=== PATIENT | male | born 1960 | race Caucasian/White ===

== ENCOUNTER 2024-08-13 07:36 | Outpatient (REF) | payer MEDICARE, SELFPAY ==
[2024-08-13 07:47] LABS: MANUAL DIFF FLAG NO
[2024-08-13 07:52] LABS: Basophils Percent Auto 0.2 % (0-2); Eosinophils Percent Auto 0.2 % (0-4); Hematocrit 42.7 % (42.0-52.0); Hemoglobin 14.3 g/dl (14.0-18.0); Imm Gran Abs Auto 0.04 X10*3/uL (0.00-0.03); Imm Gran Pct Auto 0.4 % (0.0-0.4); Lymphocytes Absolute Auto 0.8 X10*3/uL (1.2-4.9); Mean Corpuscular HGB Conc 33.5 g/dl (31.0-36.0); Mean Corpuscular Volume 89.7 fL (80.0-98.0); Mean Platelet Volume 11.4 fL (9.4-12.4); Monocytes Absolute Auto 0.2 X10*3/uL (0.1-1.2); Monocytes Percent Auto 1.8 % (2-11); Neutrophils Absolute Auto 9.3 x10*3/uL (2.0-8.3); Neutrophils Percent Auto 89.4 % (45-73); Platelet Count 244 X10*3/uL (160-400); Red Blood Count 4.76 X10*6/uL (4.60-5.80); Red Cell Distribution Width 14.6 % (11.0-16.0); White Blood Count 10.5 X10*3/uL (4.8-10.8)
[2024-08-13 07:58] LABS: Estimated Average Glucose 123 mg/dL; Hemoglobin A1C 154.0441 umol/L; Hemoglobin A1c % 5.9 % (<6.0); Total Hemoglobin (HGBA1C) 3736.9823 umol/L
[2024-08-13 08:13] LABS: Alanine Aminotransferase 45 U/L (0-40); Albumin Level 3.5 g/dL (3.5-5.0); Alkaline Phosphatase 142 U/L (39-117); Anion Gap 13 (12-20); Aspartate Amino Transferase 29 U/L (5-37); Bilirubin Total 0.4 mg/dL (0.0-1.0); Blood Urea Nitrogen 17 mg/dL (9-16); Calcium 9.4 mg/dL (8.4-10.2); Carbon Dioxide 26 mmol/L (22-29); Chloride 105 mmol/L (96-108); Cholesterol 115 mg/dL (<200); Estimated Glomerular Filt Rate > 60; Glucose Fasting 223 mg/dL (60-99); HDL Cholesterol 32 mg/dL (>40); LDL Cholesterol Calculated 65 mg/dL (<100); Potassium 4.5 mmol/L (3.3-5.1); Sodium 139 mmol/L (135-145); Total Protein 6.4 g/dL (6.5-8.0); Triglycerides 93 mg/dL (<150)
[2024-08-13 08:25] LABS: Prostate Specific Antigen 4.16 ng/mL (<0.05-4.0)
[2024-08-13 08:28] LABS: Thyroid Stimulating Hormone 0.57 uIU/mL (0.32-4.0); Vitamin D 25-OH Total 36.2 ng/mL (>30)
[2024-08-16 07:29] LABS: TS Negative Control Passed; TS Panel A 0; TS Panel B 0; TS Positive Control Passed; TSpotTB Negative (Negative)
== END 2024-08-13 07:37 | disposition home or self-care (01) ==
LOC: HO.HSH3W 07:36
PROVIDERS: Visit Provider Nurse Practitioner
DX: I10 Essential (primary) hypertension (principal); Z13.1 Encounter for screening for diabetes mellitus; Z12.5 Encounter for screening for malignant neoplasm of prostate
CPT/HCPCS: 36415; 80053; 80061; 82306; 83036; 84153; 84443; 85025; 86481

== ENCOUNTER 2024-08-28 07:56 | Outpatient (REF) | payer MEDICARE, SELFPAY ==
[2024-08-28 07:59] LABS: MANUAL DIFF FLAG NO
[2024-08-28 08:31] LABS: Basophils Percent Auto 0.3 % (0-2); Eosinophils Absolute Auto 0.1 X10*3/uL (0.0-0.4); Eosinophils Percent Auto 1.3 % (0-4); Hematocrit 39.9 % (42.0-52.0); Hemoglobin 13.6 g/dl (14.0-18.0); Imm Gran Abs Auto 0.05 X10*3/uL (0.00-0.03); Imm Gran Pct Auto 0.5 % (0.0-0.4); Lymphocytes Absolute Auto 2.1 X10*3/uL (1.2-4.9); Lymphocytes Percent Auto 21.9 % (20-40); Mean Corpuscular HGB Conc 34.1 g/dl (31.0-36.0); Mean Corpuscular Hemoglobin 30.1 pg (27.0-33.0); Mean Corpuscular Volume 88.3 fL (80.0-98.0); Mean Platelet Volume 10.9 fL (9.4-12.4); Monocytes Absolute Auto 0.5 X10*3/uL (0.1-1.2); Monocytes Percent Auto 5.7 % (2-11); Neutrophils Absolute Auto 6.6 x10*3/uL (2.0-8.3); Neutrophils Percent Auto 70.3 % (45-73); Platelet Count 227 X10*3/uL (160-400); Red Blood Count 4.52 X10*6/uL (4.60-5.80); Red Cell Distribution Width 14.7 % (11.0-16.0); White Blood Count 9.3 X10*3/uL (4.8-10.8)
[2024-08-28 08:38] LABS: Alanine Aminotransferase 45 U/L (0-40); Albumin Level 3.1 g/dL (3.5-5.0); Alkaline Phosphatase 153 U/L (39-117); Anion Gap 12 (12-20); Aspartate Amino Transferase 28 U/L (5-37); Bilirubin Total 0.4 mg/dL (0.0-1.0); Blood Urea Nitrogen 16 mg/dL (9-16); Calcium 9.1 mg/dL (8.4-10.2); Carbon Dioxide 30 mmol/L (22-29); Chloride 102 mmol/L (96-108); Estimated Glomerular Filt Rate > 60; Glucose Random 154 mg/dL (60-115); Potassium 3.8 mmol/L (3.3-5.1); Sodium 140 mmol/L (135-145); Total Protein 5.8 g/dL (6.5-8.0)
== END 2024-08-28 07:57 | disposition home or self-care (01) ==
LOC: HO.HSH3W 07:56
PROVIDERS: Visit Provider Nurse Practitioner Acute Care
DX: R19.7 Diarrhea, unspecified (principal)
CPT/HCPCS: 36415; 80053; 85025

== ENCOUNTER 2024-09-30 12:50 | Outpatient (AMB) | payer MEDICARE, SELFPAY ==
--- NOTE | 2024-09-30 12:50 | MHC.OFFVIS ---
Vital Signs 09/30/24 13:13 BP 117/68 Blood Pressure Location Lt brachial Position Sitting Pulse 73 Intake Visit Reasons: G Tube issues Intake Note: Patient scheduled today's visit to establish care in case there is G-tube issues. Records will be scanned. G-tube placed in July 2023. Rn Medical Inpatient Services Required: No Accompanied by: RN Veronica from [place] Allergies No Known Allergies Allergy (Verified 09/30/24 12:59) Assessment & Plan Assessment & Plan (1) Hypoxia: Code(s): R09.02 - Hypoxemia (2) C. difficile diarrhea: Code(s): A04.72 - Enterocolitis due to Clostridium difficile, not specified as recurrent Coding Diagnoses Hypoxia R09.02 C. difficile diarrhea A04.72
[2024-09-30 13:13] VITALS: BP 117/68; PULSE 73
--- NOTE | 2024-09-30 13:29 | MHC.OFFVIS ---
Vital Signs 09/30/24 13:13 BP 117/68 Blood Pressure Location Lt brachial Position Sitting Pulse 73 Intake Visit Reasons: G Tube issues Allergies No Known Allergies Allergy (Verified 09/30/24 12:59) Medication List - Last Reconciled 09/30/24 by Aly Farias MD acetaminophen 650 mg PO Q6H PRN apixaban 5 mg PO BID atenolol 50 mg PO DAILY atorvastatin 40 mg PO BEDTIME bisacodyl 10 mg SC DAILY PRN calcium polycarbophil (Fiber (calcium polycarbophil)) 1,250 mg PO DAILY dextromethorphan-guaifenesin 10-100 mg/5 mL 10 mL PO Q4-6H PRN lidocaine 4% (Lidocaine Pain Relief) 1 patch topical DAILY PRN magnesium hydroxide 5 mL PO BEDTIME melatonin 3 mg PO BEDTIME PRN nystatin 1 appl topical BID omeprazole magnesium 20 mg PO BID paroxetine HCl 10 mg PO DAILY Saccharomyces boulardii 250 mg PO BID sodium phosphates 19-7 gram/118 mL 118 mL SC BEDTIME PRN vancomycin (Firvanq) 125 mg PO QID HPI HPI G Tube issues: Details: 64-year-old male with a history of a right thalamic hemorrhagic stroke referred to me for care of his PEG tube. He apparently had this placed about a year ago in [facility]. He has had this changed 2-3 times already because of clogging [facility] and [facility] wanted him transitioned to care in [facility] with regards to his PEG tube He is essentially wheelchair-bound. He does communicate verbally although with difficulty He also has a history of PE and is on anticoagulation. He has hypertension and hyperlipidemia and has had recurrent C diff. he is on a tapering dose of vancomycin. Currently there were no problems with the feeding tube. [facility] Medical History Constipation Chronic GERD Hypertension Hx pulmonary embolism Hypoxia C. difficile diarrhea Surgical History (Updated 09/30/24 @ 13:37 by Aly Farias MD) PEG (percutaneous endoscopic gastrostomy) status Review of Systems Const Denies chills and Denies fever(s) Card Denies chest pain at rest Resp Denies cough GI Denies abdominal pain Denies difficulty urinating Neuro Details: Wheelchair-bound due to a previous CVA Physical Exam Vital Signs: Last Vital Signs Pulse 73 09/30/24 13:13 BP 117/68 09/30/24 13:13 Const Other: On wheelchair, appears comfortable does have some verbal output General: comfortable and no acute distress Resp Effort & Inspection: normal respiratory effort Cardio Rate: regular rate GI Other: Peg tube in place, appears to be functioning well Palpation (GI): Soft to palpation Assessment & Plan Assessment & Plan (1) PEG (percutaneous endoscopic gastrostomy) status: Code(s): Z93.1 - Gastrostomy status Category: Surgical Plan: He has a PEG tube in place after a CVA last year. This was done in [facility] but he is being transitioned to care he had [facility] for PEG tube Currently, this is functioning well. However, he has had this changed twice in the past because of blockage. He can come back to the office if this needs to be changed. He is also on a prolonged course of vancomycin because of recurrent C diff. I told this nurse that we may want to consider deficit in the future he continues problems with recurrent C diff infection. Coding Level of Care Code New Pt Level 3 (50060) Diagnoses PEG (percutaneous endoscopic gastrostomy) status Z93.1
== END 2024-09-30 13:32 | disposition home or self-care (01) ==
PROVIDERS: PCP Nurse Practitioner; Visit Provider Surgery
DX: Z93.1 Gastrostomy status (principal)
CPT/HCPCS: 99203

== ENCOUNTER → 2024-09-30 12:50 | Outpatient (BNVA) | payer MEDICARE, SELFPAY | PROVIDERS: PCP Nurse Practitioner; Visit Provider Surgery | DX: Z93.1 Gastrostomy status (principal) | CPT/HCPCS: 99202 ==

== ENCOUNTER 2024-10-26 17:51 | Outpatient (REF) | payer MEDICARE, SELFPAY ==
--- OUTSIDE RECORDS SUMMARY | 2024-08-14 09:00 | XMS_ITS ---
Author Organization [facility] Address 7 [facility] 2 [place] [address] Care Team Providers Care Credit Reporting Clerk Name Role Phone Cosmo BARRIOS, Maciej Primary Care Provider Agustina Araujo Unavailable [phone] REASON FOR VISIT half-way follow up wound care Encounters Encounter Location Date Provider Diagnosis [facility] [address] [facility] [place] [address] 08/14/2024 Agustina Mayo Diaper dermatitis L22 and [...] plan of care. I Agustina Mayo MSN, [facility]- examined, evaluated and treated the patient. Dr. hCintan Day was available for any question or concerns that I may have had. Next Appt Details Follow Up: 1 week, Reason: Progress Notes * Gilmar ALCANTARADOB:[birth year] (64 yo M)Acc No.[id number]:08/14/2024 Residential Follow-Up Visit Patient: Gilmar SCHULTZ Provider: Leah Mayo NP :1960 A ge:64 Y S ex:Male Date:08/14/2024 Address:[address] [place] [address], [place]la [id number] Pcp:Maciej Wilburn MD Subjective: * Chief Complaints: * 1 . [facility] follow up wound care. * HPI: W [...] Information: * Visit Code: * Procedure Codes: 31821 NURSING FAC CARE SUBSEQ. * Electronic signature of Lacy Mayo NP on 10/26/2024 at 05:56 PM EDT Sign off status: Pending * Provider: Leah Mayo NP Date: 08/14/2024 Generated for Anastacia pires/Hortensia/Lor on: 0 10/26/2024 05:56 PM EDT History and Physical Notes * [...]
== END 2024-10-26 17:52 | disposition home or self-care (01) ==
LOC: HO.HSH3W 17:51
PROVIDERS: Visit Provider Nurse Practitioner
DX: A04.72 Enterocolitis due to Clostridium difficile, not specified as recurrent (principal)
CPT/HCPCS: 36415

== ENCOUNTER 2024-10-27 20:40 | Outpatient (REF) | payer MEDICARE, SELFPAY ==
--- OUTSIDE RECORDS SUMMARY | 2024-08-14 09:00 | XMS_ITS ---
Author Organization [facility] Address 7 [facility] 2 [place] [address] [address] Team Providers Care Ct Technician Name Role Phone Cosmo BARRIOS, Maciej Primary Care Provider Agustina Araujo Unavailable [phone] REASON FOR VISIT group home follow up wound care Encounters Encounter Location Date Provider Diagnosis [facility] [address] [place] [address] 08/14/2024 Agustina Mayo Diaper dermatitis L22 and [...] nursing agree w plan of care. I Agustian Mayo MSN, AGPCNP-BC examined, evaluated and treated [...] plan of care. I Agustina Mayo MSN, [facility]- examined, evaluated and treated the patient. Dr. Chintan Day was available for any question or concerns that I may have had. Next Appt Details Follow Up: 1 week, Reason: Progress Notes * Gilmar ALCANTARADOB:[birth year] (64 yo M)Acc No.[id number]:08/14/2024 Group Home Follow-Up Visit Patient: Gilmar SCHULTZ Provider: Leah Mayo NP :1960 A ge:64 Y S ex:Male Date:08/14/2024 Address:[address] [place] [address], [place]la [id number] Pcp:Maciej Wilburn MD Subjective: * Chief Complaints: * 1 . residential follow up wound care. * HPI: W [...] Information: * Visit Code: * Procedure Codes: 60245 NURSING FAC CARE SUBSEQ. * Electronic signature of Lacy Mayo NP on 10/27/2024 at 08:45 PM EDT Sign off status: Pending * Provider: Leah Mayo NP Date: 0 08/14/2024 Generated for Anastacia pires/Hortensia/Lor on: 0 10/27/2024 08:45 PM EDT History and Physical Notes * [...]
[2024-10-27 21:48] LABS: CDiff Gene PCR POSITIVE (Negative)
[2024-10-27 22:42] LABS: CDiff Toxin Positive (Negative)
[2024-10-27 22:43] LABS: CDIFF Internal ctrl Dots and bkg OK (V)
== END 2024-10-27 20:41 | disposition home or self-care (01) ==
LOC: HO.HSH3W 20:40
PROVIDERS: Visit Provider Nurse Practitioner
DX: A04.71 Enterocolitis due to Clostridium difficile, recurrent (principal)
CPT/HCPCS: 87324; 87493

== ENCOUNTER → 2024-10-29 16:19 | Outpatient (BNV) | payer MEDICARE, SELFPAY | PROVIDERS: Emergency Provider Emergency Medicine Emergency Medical Services; PCP Internal Medicine; Visit Provider Radiology Diagnostic Radiology | DX: R19.7 Diarrhea, unspecified (principal); R07.9 Chest pain, unspecified | CPT/HCPCS: 71045; 74176 ==

== ENCOUNTER → 2024-10-29 16:19 | Outpatient (BNV) | payer OTHER, SELFPAY | PROVIDERS: Admitting Provider Physician Assistant Medical; Emergency Provider Emergency Medicine Emergency Medical Services; PCP Internal Medicine; Visit Provider Internal Medicine Cardiovascular Disease | DX: R94.31 Abnormal electrocardiogram [ECG] [EKG] (principal); R06.02 Shortness of breath | CPT/HCPCS: 93010 ==

== ENCOUNTER 2024-10-29 17:00 | Inpatient (IN) | payer OTHER, SELFPAY ==
--- OUTSIDE RECORDS SUMMARY | 2024-08-14 09:00 | XMS_ITS ---
Author Organization [facility] Address 7 [facility] 2 [place] [address] Care Team Providers Care Reflexologist Name Role Phone Cosmo BARRIOS, Maciej Primary Care Provider Agustina Araujo Unavailable [phone] REASON FOR VISIT senior care follow up wound care Encounters Encounter Location Date Provider Diagnosis [facility] [address] [facility] [place] [address] 08/14/2024 Agustina Mayo Diaper dermatitis L22 and Tinea corporis B35.4 Assessments Encounter Date Diagnosis (ICD Code) Assessment Notes Treatment Notes Treatment Clinical Notes Section Notes 08/14/2024 Diaper dermatitis (ICD-10 - L22) 08/14/2024 Tinea corporis (ICD-10 - B35.4) On exam, alert & cooperative with care. We rolled and examined his buttocks which remains intact but his bilateral posterior thighs, buttocks, and scrotum have moist erythema and appear fungal in nature, improved and lightening in color from 1 week ago (previously bright red and now more pink in color). There were no findings to indicate any acute underlying infectious process. Betamethasone clotrimazole was applied. I recommended nursing continue to apply betamethasone clotrimazole BID to his bilateral grain and scrotum. Turn, reposition & change Q2 hours & PRN. Encourage appropriate dietary supplementation to aid in wound healing. Falls protocol in place. I will follow up in about one week to monitor his progress and nursing will reach out in the interim w any questions or concerns. Patient and nursing agree w plan of care. I Agustina Mayo MSN, AGPCNP-BC examined, evaluated and treated the patient. Dr. Chintan Day was available for any question or concerns that I may have had. Plan Of Treatment Treatment Notes Assessment Notes Tinea corporis On exam, alert & cooperative with care. We rolled and examined his buttocks which remains intact but his bilateral posterior thighs, buttocks, and scrotum have moist erythema and appear fungal in nature, improved and lightening in color from 1 week ago (previously bright red and now more pink in color). There were no findings to indicate any acute underlying infectious process. Betamethasone clotrimazole was applied. I recommended nursing continue to apply betamethasone clotrimazole BID to his bilateral grain and scrotum. Turn, reposition & change Q2 hours & PRN. Encourage appropriate dietary supplementation to aid in wound healing. Falls protocol in place. I will follow up in about one week to monitor his progress and nursing will reach out in the interim w any questions or concerns. Patient and nursing agree w plan of care. I Agustina Mayo MSN, [facility]- examined, evaluated and treated the patient. Dr. Chintan Day was available for any question or concerns that I may have had. Next Appt Details Follow Up: 1 week, Reason: Progress Notes * Gilmar ALCANTARADOB:[birth year] (64 yo M)Acc No.[id number]:08/14/2024 Half-Way Follow-Up Visit Patient: Gilmar SCHULTZ Provider: Leah Mayo NP :1960 A ge:64 Y S ex:Male Date:08/14/2024 Address:[address] [place] [address], [place]la [id number] Pcp:Maciej Wilburn MD Subjective: * Chief Complaints: * 1 . detention follow up wound care. * HPI: W ound Care: 1 week follow up on Gilmar's rash to his groin and scrotum. Nursing started using zinc or triad paste without improvement, so we changed the treatment 1 week ago to betamethasone clotrimazole cream BID. * ROS: G eneral / Constitutional: Patient denies F ever, chills, fatigue. E NT: Patient denies H earing loss. R espiratory: Patient denies C ough. C ardiovascular: Patient denies C hest pain. G astrointestinal: Patient complains of F ecal incontinence. M usculoskeletal: Patient complains of W eakness. S kin: Patient complains of R moreno. N eurologic: Patient complains of F orgetful. P sychiatric: Patient denies A nxiety. * Medical History: Objective: * Vitals: * Examination: G eneral Examination: General appearance: a ppears neat and clean, in NAD. Head: n ormocephalic, atraumatic. Ears: n o apparent hearing loss. Skin: M oist erythema to bilateral groin and scrotum improved and lightening compared to 1 week ago. Lungs: r eladio even and unlabored. Musculoskeletal: p t uses a WC. Neurologic: F orgetful. Psych: a ppropriate affect. Assessment: * Assessment: 1. T inea corporis - B35.4 (Primary) 2 . D iaper dermatitis - L22 ? Plan: * Treatment: * Procedure Codes: 9 9308 NURSING FAC CARE SUBSEQ * Follow Up: 1 week * Billing Information: * Visit Code: * Procedure Codes: 28674 NURSING FAC CARE SUBSEQ. * Electronic signature of Lacy Mayo NP on 10/29/2024 at 05:38 PM EDT Sign off status: Pending * Provider: Leah Mayo NP Date: 08/14/2024 Generated for Anastacia pires/Hortensia/Lor on: 0 10/29/2024 05:38 PM EDT History and Physical Notes * Examination Category Sub-Category Detail Notes Category Not es General Examination General appearance: appears neat a nd clean, in NAD Head: normocephalic, atrau matic Ears: no apparent hearing loss Lungs: resp even and unlabo red Neurologic: Forgetful Skin: Moist erythema to bi lateral groin and scrotum improved and lightening compared to 1 week ago Musculoskeletal: pt uses a WC Psych: appropriate affect
[2024-10-29] VITALS (15 sets, daily range): BP systolic 75–110; BP diastolic 30–63; PULSE 83–102; RESP 18–31; TEMP 37.4–38.5; O2SAT 92–97; BMI 25.3
--- NOTE | ~2024-10-29 | CT_ITS ---
CLINICAL HISTORY: diarrhea Exam: CT Abdomen and Pelvis Without IV Contrast Comparison: None Findings: Above the diaphragm there is mild bilateral posterior costophrenic sulcus atelectasis. The liver density is homogeneous No biliary abnormalities. The gallbladder is normal in size. The spleen is normal in size No pancreatic ductal dilatation No hydronephrosis. No urinary tract obstruction. Two small nonobstructing calculi are present in the minor calices of the left kidney, and a 1 mm nonobstructing calcification is present in a minor calyx of the right kidney. Normal bowel caliber. A rectal tube is in satisfactory position. No secondary signs of acute appendicitis. The appendix is not well visualized. No free fluid/free air The abdominal aorta contains significant calcified atherosclerotic plaque, the caliber is normal The urinary bladder wall is thickened measuring 13 mm in thickness due to contracted state decompressed by a Riley catheter. No suspicious skeletal lesions Impression: The bowel pattern is nonobstructed. A rectal tube is in satisfactory position. The colon caliber is normal and contains liquid stool, but no signs of inflammatory colon wall thickening at this time. Thickened urinary bladder wall consider cystitis, correlate with UA This document has been electronically signed by: Michael Tejeda MD on 10/29/2024 19:16:58
--- NOTE | ~2024-10-29 | CT_ITS ---
CLINICAL HISTORY: AMS --- Additional Notes or Special Instructions: hx of stroke CT Head WO Contrast COMPARISON: None provided FINDINGS: No acute intracranial hemorrhage. No evidence of acute infarction. Diffuse cortical volume loss. Nonspecific white matter hypodensities, most commonly associated with chronic microangiopathic changes. 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 Small chronic appearing encephalomalacia in the right ford radiata. No mass-effect or midline shift. Disproportionate prominence of the lateral and 3rd ventricles relative to the sulci, without visible acute etiology. Visualized orbits are normal. Cysts or polyps in the maxillary sinuses. Trace fluid in the left mastoid air cells. Clear right mastoid air cells. No acute fracture. Unremarkable soft tissues. IMPRESSION: No acute intracranial findings. Possible normal pressure hydrocephalus in the proper clinical setting. Nonemergent/incidental findings in the report. This document has been electronically signed by: Jose Waite MD on 10/30/2024 04:04:04
--- NOTE | ~2024-10-29 | XR_ITS ---
CLINICAL HISTORY: cp 1 view chest x-ray. Comparison: None Findings: No consolidation. Heart size normal. No acute fracture. Impression: Normal heart size with mild pulmonary vascular congestion. No pulmonary edema. No pneumothorax. This document has been electronically signed by: Michael Tejeda MD on 10/29/2024 17:59:16
--- NOTE | ~2024-10-29 | CT_ITS ---
CLINICAL HISTORY: chest CT Chest WO Contrast COMPARISON: CR - XR CHEST 1V - 10/29/24 17:14 EDT FINDINGS: Detail limited by artifacts. Bilateral posterior atelectasis or infiltrates. Bronchial wall thickening in the bilateral lower lungs. Occlusion of the left lower lobe lobar bronchus and bilateral lower lobe segmental and subsegmental bronchi. No pleural effusion. No pneumothorax. Mild cardiomegaly. No pericardial effusion. No pathologically enlarged lymph nodes. No thoracic aortic aneurysm. Atherosclerosis. No acute fracture. Degenerative changes in the spine and shoulders. Mild nonspecific hypertrophy of the bilateral adrenal glands. IMPRESSION: Probable bronchitis. Occluded left lower lobe lobar and bilateral lobe segmental and subsegmental bronchi could be due to mucus impactions. Follow-up recommended to exclude underlying left lower lobe endobronchial neoplasm. Bilateral posterior atelectasis or infiltrates. Nonemergent/incidental findings above. This document has been electronically signed by: Jose Waite MD on 10/30/2024 04:09:44
--- NOTE | 2024-10-29 16:19 | ECG_ITS ---
Test Reason : CHEST PAIN Blood Pressure : */* mmHG Vent. Rate : 87 BPM Atrial Rate : 87 BPM P-R Int : 116 ms QRS Dur : 72 ms QT Int : 358 ms P-R-T Axes : 51 -7 44 degrees QTcB Int : 430 ms Normal sinus rhythm Nonspecific ST abnormality Abnormal ECG No previous ECGs available Referred By: Amber De L aRosa Electronically Signed By: Fabien Angel
--- NOTE | 2024-10-29 16:23 | ED.GENADULT ---
HPI - General Adult General Chief complaint: General Medical Stated complaint: ?sepsis, fever,hypotention Time Seen by Provider: 10/29/24 16:10 History of Present Illness HPI narrative: History of left-sided weakness patient baseline aphasic. Tested positive for C diff. Is now running a fever. Is on vancomycin. Patient is on Eliquis. Presented today with having fever generalized malaise weakness. Baseline nonverbal patient is a do not intubate but attempts resuscitation. [facility] Unable to give detailed. History of hypertension Related Data Home Medications ?Medication ?Instructions ?Recorded ?Confirmed Saccharomyces boulardii 250 mg 250 mg PO BID 09/30/24 09/30/24 capsule acetaminophen 650 mg/20.3 mL oral 650 mg PO Q6H PRN 09/30/24 09/30/24 suspension apixaban 5 mg tablet 5 mg PO BID 09/30/24 09/30/24 atenolol 50 mg tablet 50 mg PO DAILY 09/30/24 09/30/24 atorvastatin 40 mg tablet 40 mg PO BEDTIME 09/30/24 09/30/24 bisacodyl 10 mg rectal suppository 10 mg NM DAILY PRN 09/30/24 09/30/24 calcium polycarbophil 625 mg 1,250 mg PO DAILY 09/30/24 09/30/24 tablet (Fiber (calcium polycarbophil)) dextromethorphan-guaifenesin 10 10 ml PO Q4-6H PRN 09/30/24 09/30/24 mg-100 mg/5 mL oral liquid lidocaine 4 % topical patch 1 patch topical DAILY PRN 09/30/24 09/30/24 (Lidocaine Pain Relief) magnesium hydroxide 400 mg/5 mL 5 ml PO BEDTIME 09/30/24 09/30/24 oral suspension melatonin 3 mg capsule 3 mg PO BEDTIME PRN 09/30/24 09/30/24 nystatin 100,000 unit/gram topical 1 appl topical BID 09/30/24 09/30/24 cream omeprazole magnesium 10 mg oral 20 mg PO BID 09/30/24 09/30/24 suspension,delayed release paroxetine HCl 10 mg tablet 10 mg PO DAILY 09/30/24 09/30/24 sodium phosphates 19 gram-7 118 ml NM BEDTIME PRN 09/30/24 09/30/24 gram/118 mL enema vancomycin 25 mg/mL oral solution 125 mg PO QID 09/30/24 09/30/24 (Firvanq) Allergies Allergy/AdvReac Type Severity Reaction Status Date / Time No Known Allergies Allergy Verified 10/29/24 16:21 Review of Systems Review of Systems: Unable to obtain review of systems secondary patient's condition [facility] Past Medical History Source: old records reviewed Medical History Constipation Chronic GERD Hypertension Hx pulmonary embolism Hypoxia C. difficile diarrhea Surgical History PEG (percutaneous endoscopic gastrostomy) status Social History Social History (Updated 10/29/24 @ 22:54 by PEDRITO Castle) Household Members: Other Housing: [facility] Housing Other:: [facility] Unable to assess alcohol history related to: Unknown Smoked in Last 30 Days: No Advance Directives: No Advance Directives Information Provided: No Physical Exam ED Vital Signs: Vital Signs - 24 hr 10/29/24 16:17 10/29/24 16:17 10/29/24 17:54 Temperature 101.3 F H 100.2 F Pulse Rate 99 87 Respiratory Rate 18 20 Blood Pressure 94/43 L 81/39 L Pulse Oximetry 94 94 Oxygen Delivery Method Room Air Room Air 10/29/24 18:24 10/29/24 18:58 10/29/24 18:59 Temperature Pulse Rate 83 89 87 Respiratory Rate Blood Pressure 84/44 L 78/34 L 80/35 L Pulse Oximetry Oxygen Delivery Method 10/29/24 19:08 10/29/24 19:15 10/29/24 19:31 Temperature 99.5 F 99.3 F 99.3 F Pulse Rate 88 91 92 Respiratory Rate 24 H 25 H 21 H Blood Pressure 75/30 L 97/51 L 93/48 L Pulse Oximetry 92 92 95 Oxygen Delivery Method Room Air Room Air Room Air 10/29/24 19:59 10/29/24 20:58 10/29/24 21:37 Temperature 99.3 F 99.7 F 100.2 F Pulse Rate 93 98 102 H Respiratory Rate 19 26 H 31 H Blood Pressure 96/51 L 98/41 L 110/53 L Pulse Oximetry 95 96 97 Oxygen Delivery Method Room Air Room Air Room Air 10/29/24 22:55 Temperature 101.1 F H Pulse Rate 95 Respiratory Rate 28 H Blood Pressure 93/49 L Pulse Oximetry 93 Oxygen Delivery Method Room Air BMI result Body Mass Index 25.3 Appearance: Lethargic not making eye contact moaning Eyes: Pupils equal, round and reactive to light. ENT: Pharynx normal. Neck: Normal inspection. Neck supple. No lymph nodes noted. No crepitus CVS: Tachycardic Respiratory: Positive breath sounds bilaterally Abdomen: Soft and nontender. Skin: Skin warm and dry. Normal skin color. Normal skin turgor. Extremities: 2+ lower extremity edema Neuro: Oriented X 0 contracted Medications Administered Generic Name Dose Route Start Last Admin Trade Name Freq PRN Reason Stop Dose Admin Sodium Chloride 1,000 mls @ 100 mls/hr 10/29/24 22:30 10/29/24 22:41 Ns IVCONT 100 mls/hr On Hold: 10/29/24 23:05 .Q10H CATRACHO Administration Albumin Human 100 mls @ 133.333 mls/hr 10/29/24 22:30 10/29/24 22:37 Kedbumin 25 % IV 10/30/24 00:14 133.33 mls/hr Q1H CATRACHO Administration Discontinued Medications Generic Name Dose Route Start Last Admin Trade Name Freq PRN Reason Stop Dose Admin Acetaminophen 650 mg 10/29/24 16:22 10/29/24 16:59 Acetaminophen Supp 650 Mg Supp.Rect NM 10/29/24 16:23 Not Given ONCE ONE Cefepime HCl 1 gm/ Sodium 50 mls @ 100 mls/hr 10/29/24 16:20 10/29/24 17:08 Chloride IV 10/29/24 16:49 Infused ONCE ONE Infusion Sodium Chloride 2,202 mls @ 2,202 mls/hr 10/29/24 16:28 10/29/24 18:59 Ns 30 ml/kg infuse over 1 hr (2202 ml) 10/29/24 17:27 Infused IV Infusion .Q1H STA Acetaminophen 1,000 mg in 100 mls @ 400 mls/hr 10/29/24 16:35 10/29/24 17:29 Ofirmev IV 10/29/24 16:49 Infused ONCE ONE Infusion Albumin Human 50 mls @ 100 mls/hr 10/29/24 18:30 07/10/25 19:25 Kedbumin 25 % IV 10/29/24 19:29 Infused Q30M CATRACHO Infusion Sodium Chloride 1,000 mls @ 999 mls/hr 10/29/24 19:30 10/29/24 20:42 Ns IV 10/29/24 20:30 Infused .Q1H1M CATRACHO Infusion Sodium Chloride 1,000 mls @ 999 mls/hr 10/29/24 20:15 10/29/24 22:11 Ns IV 10/29/24 21:15 Infused .Q1H1M CATRACHO Infusion Acetaminophen 1,000 mg in 100 mls @ 400 mls/hr 10/29/24 22:26 10/29/24 22:57 Ofirmev IV 10/29/24 22:40 Infused ONCE ONE Infusion Ibuprofen 600 mg 10/29/24 22:26 10/29/24 22:36 Ibuprofen Oral Susp 200 Mg/10 Ml Oral.Susp PO 10/29/24 22:27 600 mg ONCE ONE Administration Vancomycin HCl 250 mg 10/29/24 18:45 10/29/24 20:00 Vancomycin Hcl Oral Solution 125 Mg/5 Ml Soln.Recon PO 10/29/24 18:46 Not Given ONCE ONE Vancomycin HCl 250 mg 10/29/24 20:30 10/29/24 20:00 Vancomycin Hcl Oral Solution 125 Mg/5 Ml Soln.Recon PO 10/29/24 20:31 250 mg ONCE ONE Administration Medical Decision Making Medical Decision Making MDM Narrative: Positive fever positive diarrhea positive history of C diff. will do a septic workup. 30 cc/kilos fluid of fluid was given. Patient's started on sepsis protocol. Lactate was 3. After IV fluids repeat focal exam for sepsis was done. Symptomatically improving. Vancomycin was given orally for the C diff. cefepime was given for empiric coverage. My interpretation patient's chest x-ray showed no focal infiltrate. Patient is given IV fluids. Monitor in the emergency department. Repeat focal exam for sepsis is done at 19:00. Patient is seems to be improving somewhat. After the IV fluids patient's blood pressure dropped to 70s over 40s. I did give patient some albumin. Blood pressure is now recovering to 95/50. Discussed with hospitalist team. Patient to be admitted. I reviewed radiology's reading of the CT scan abdomen pelvis there is no signs of obstruction. Differential Diagnosis Differential Diagnoses: The differential diagnosis associated with the presentation includes C diff colitis, dehydration, fever Admission/Observation Consideration of admission/observation: Escalation of care including admission/observation considered Consult Healthcare Provider Management of the patient was discussed with: Hospitalist Lab Data MDM Lab Attestation statement: I reviewed the patient's lab results. 10/29/24 17:02 10/29/24 19:26 Labs: Lab Results 10/29/24 10/29/24 10/29/24 Range/Units 16:24 17:02 19:26 WBC 30.5 H* (4.8-10.8) X10*3/uL RBC 4.65 (4.60-5.80) X10*6/uL Hgb 13.6 L (14.0-18.0) g/dl Hct 40.0 L (42.0-52.0) % MCV 86.0 (80.0-98.0) fL MCH 29.2 (27.0-33.0) pg MCHC 34.0 (31.0-36.0) g/dl RDW 14.4 (11.0-16.0) % Plt Count 345 D (160-400) X10*3/uL MPV 9.4 (9.4-12.4) fL Immature Gran % (Auto) 0.9 H (0.0-0.4) % Neut % (Auto) 89.9 H (45-73) % Lymph % (Auto) 1.7 L (20-40) % [facility] % (Auto) 7.1 (2-11) % Eos % (Auto) 0.1 (0-4) % Baso % (Auto) 0.3 (0-2) % Lymph # (Auto) 0.5 L (1.2-4.9) X10*3/uL [facility] # (Auto) 2.2 H (0.1-1.2) X10*3/uL Eos # (Auto) 0.0 (0.0-0.4) X10*3/uL Baso # (Auto) 0.1 (0.0-0.2) X10*3/uL Abs Immat Gran (auto) 0.28 H (0.00-0.03) X10*3/uL Absolute Neuts (auto) 27.4 H (2.0-8.3) x10*3/uL Absolute Nucleated RBC 0.000 (0.0-0.012) X10*3/uL Nucleated RBC % (auto) 0.0 (0.0-0.2) /100WBC Smear Tech's Comments VERIFIED Sodium 140 (135-145) mmol/L Potassium 4.3 (3.3-5.1) mmol/L Chloride 110 H (96-108) mmol/L Carbon Dioxide 22 (22-29) mmol/L Anion Gap 12 (12-20) BUN 12 (9-16) mg/dL Creatinine 0.61 (0.5-1.4) mg/dL Estim Creat Clear Calc 111.3 Estimated GFR > 60 Random Glucose 127 H (60-115) mg/dL Lactic Acid 3.1 H* (0.5-2.0) mmol/L Lactic Acid F/U @ 2Hr (0.5-2.0) mmol/L Lactic Acid F/U @ 4Hr (0.5-2.0) mmol/L Calcium 7.8 L D (8.4-10.2) mg/dL Total Bilirubin 0.6 (0.0-1.0) mg/dL Direct Bilirubin 0.3 (0.0-0.5) mg/dL AST 36 (5-37) U/L ALT 49 H (0-40) U/L Alkaline Phosphatase 113 (39-117) U/L Total Protein 4.8 L (6.5-8.0) g/dL Albumin 2.9 L (3.5-5.0) g/dL Urine Color Yellow Urine Appearance Cloudy Urine pH 5.5 (5.0-9.0) Ur Specific [place] 1.015 (1.005-1.025) Urine Protein Trace (Neg-Trace) mg/dL Urine Glucose (UA) Negative (Negative) mg/dL Urine Ketones Negative (Negative) mg/dL Urine Blood Small (1+) H (Negative) Urine Nitrite Positive H (Negative) Ur Leukocyte Esterase Large (3+) H (Negative) Urine RBC 3-5 H (0-2) /HPF Urine WBC >50 H (0-5) /HPF Urine WBC Clumps Present Ur Squamous Epith Cells 0-2 (0-2) /HPF Calcium Oxalate Crystal Present Urine Bacteria 4+ (None Seen) Hyaline Casts 0-2 (0-2) /LPF Influenza Type A (PCR) (Negative) Influenza Type B (PCR) (Negative) RSV RNA Qual (PCR) (Negative) SARS-CoV-2 RNA (RT-PCR) (Negative) 10/29/24 10/29/24 Range/Units 19:27 22:32 WBC (4.8-10.8) X10*3/uL RBC (4.60-5.80) X10*6/uL Hgb (14.0-18.0) g/dl Hct (42.0-52.0) % MCV (80.0-98.0) fL MCH (27.0-33.0) pg MCHC (31.0-36.0) g/dl RDW (11.0-16.0) % Plt Count (160-400) X10*3/uL MPV (9.4-12.4) fL Immature Gran % (Auto) (0.0-0.4) % Neut % (Auto) (45-73) % Lymph % (Auto) (20-40) % [facility] % (Auto) (2-11) % Eos % (Auto) (0-4) % Baso % (Auto) (0-2) % Lymph # (Auto) (1.2-4.9) X10*3/uL [facility] # (Auto) (0.1-1.2) X10*3/uL Eos # (Auto) (0.0-0.4) X10*3/uL Baso # (Auto) (0.0-0.2) X10*3/uL Abs Immat Gran (auto) (0.00-0.03) X10*3/uL Absolute Neuts (auto) (2.0-8.3) x10*3/uL Absolute Nucleated RBC (0.0-0.012) X10*3/uL Nucleated RBC % (auto) (0.0-0.2) /100WBC Smear Tech's Comments Sodium (135-145) mmol/L Potassium (3.3-5.1) mmol/L Chloride (96-108) mmol/L Carbon Dioxide (22-29) mmol/L Anion Gap (12-20) BUN (9-16) mg/dL Creatinine (0.5-1.4) mg/dL Estim Creat Clear Calc Estimated GFR Random Glucose (60-115) mg/dL Lactic Acid (0.5-2.0) mmol/L Lactic Acid F/U @ 2Hr 3.7 H* (0.5-2.0) mmol/L Lactic Acid F/U @ 4Hr 3.7 H* (0.5-2.0) mmol/L Calcium (8.4-10.2) mg/dL Total Bilirubin (0.0-1.0) mg/dL Direct Bilirubin (0.0-0.5) mg/dL AST (5-37) U/L ALT (0-40) U/L Alkaline Phosphatase (39-117) U/L Total Protein (6.5-8.0) g/dL Albumin (3.5-5.0) g/dL Urine Color Urine Appearance Urine pH (5.0-9.0) Ur Specific [place] (1.005-1.025) Urine Protein (Neg-Trace) mg/dL Urine Glucose (UA) (Negative) mg/dL Urine Ketones (Negative) mg/dL Urine Blood (Negative) Urine Nitrite (Negative) Ur Leukocyte Esterase (Negative) Urine RBC (0-2) /HPF Urine WBC (0-5) /HPF Urine WBC Clumps Ur Squamous Epith Cells (0-2) /HPF Calcium Oxalate Crystal Urine Bacteria (None Seen) Hyaline Casts (0-2) /LPF Influenza Type A (PCR) NEGATIVE (Negative) Influenza Type B (PCR) NEGATIVE (Negative) RSV RNA Qual (PCR) NEGATIVE (Negative) SARS-CoV-2 RNA (RT-PCR) NEGATIVE (Negative) Independent Interpretation I performed an independent interpretation of an: EKG (Sinus heart rate is 90 NM QRS QTC within normal limits there is no acute ST segment elevation noted.), Plain X-Ray (Negative for pneumonia pneumothorax) and CT Scan (No gross obstruction noted) Radiology Impression Discussion of test interpretation with radiology: I discussed test interpretation with the radiologist External Record Review External record reviewed: Inpatient record and Outpatient record Chronic Conditions CVA, was on antibiotics prior Social Determinants Patient?s care significantly limited by Social Determinants of Health including: Problems related to primary support group Critical Care Time Critical Care Time Critical Care Time: Yes Total Critical Care Time: 90 Attestation: I have personally provided 90 minutes of critical care time exclusive of time spent on separately billable procedures. ?Time includes review of lab data, radiology results, discussion with consultants, and monitoring for potential decompensation. ?Interventions were performed as documented above Discharge Plan Discharge Clinical Impression: C. difficile colitis Sepsis Qualifiers: Sepsis type: sepsis due to unspecified organism Sepsis acute organ dysfunction status: unspecified Qualified Code(s): A41.9 - Sepsis, unspecified organism Patient Disposition: Admitted As Inpatient Print Language: Setswana
[2024-10-29] MEDS: SODIUM CHLORIDE 2202 ML IV (16:37)
--- NOTE | 2024-10-29 17:10 | PC.NURSE ---
[facility], patient noted to have fever at care home and recent positive test for cdiff. upon arrival to ED patient unresponsive to painful stimuli, warm to the touch. additional line placed #18 in the right FA, cultures and labs obtained. #16 fr rodríguez placed as provider order, aprox 300cc urine obtained. patient noted to have large copious amounts of diarrhea, rectal tube placed per provider order. patient tolerated both interventions well, patient now opening eyes and tracking staff in room. per EMS patient is bed bound and non verbal, patient has g tube in place. patient sacrum noted to be red at this time. patient at bedside, patient medicated per JUN.
[2024-10-29 17:14] LABS: Hematocrit 40.0 % (42.0-52.0); Hemoglobin 13.6 g/dl (14.0-18.0); Imm Gran Abs Auto 0.28 X10*3/uL (0.00-0.03); Imm Gran Pct Auto 0.9 % (0.0-0.4); Lymphocytes Absolute Auto 0.5 X10*3/uL (1.2-4.9); MANUAL DIFF FLAG SCAN; Mean Corpuscular HGB Conc 34.0 g/dl (31.0-36.0); Mean Corpuscular Hemoglobin 29.2 pg (27.0-33.0); Mean Corpuscular Volume 86.0 fL (80.0-98.0); NRBC Abs Auto 0.000 X10*3/uL (0.0-0.012); NRBC Pct Auto 0.0 /100WBC (0.0-0.2); Platelet Count 345 X10*3/uL (160-400); Red Blood Count 4.65 X10*6/uL (4.60-5.80); SCAN SMEAR FLAG 1
[2024-10-29 17:21] LABS: White Blood Count 30.5 X10*3/uL (4.8-10.8)
--- OUTSIDE RECORDS SUMMARY | 2024-10-29 17:38 | XMS_ITS | Clinical Summary ---
Author Organization [facility] Address [address] [place] [address] Care Team Providers Care Tool Dresser Name Role Phone Unavailable Primary Care Provider Unavailabl e Allergies No known active allergies Medications acetaminophen (Tylenol) 325 MG tablet Take 650 mg by mouth. 4 Active amoxicillin-clavul anate (Augmentin) 250-62.5 MG/5ML suspension 5 Active Eliquis 5 MG tablet 5 Active atenolol (Tenormin) 25 MG tablet 50 mg. 4 Active atorvastatin (Lipitor) 40 MG tablet 40 mg. 4 Active bisacodyl (Dulcolax) 10 MG suppository Insert 10 mg into the rectum. 4 Active cephalexin (Keflex) 250 MG capsule 4 Active clotrimazole-betam ethasone (Lotrisone) cream Apply topically. 4 Active doxycycline (Vibramycin) 100 MG capsule 5 Active doxycycline (Vibra-Tabs) 100 MG tablet 5 Active erythromycin (Romycin) 5 MG/GM ophthalmic ointment 5 Active lansoprazole (Prevacid SoluTab) 30 MG disintegrating tablet 30 mg. 4 Active magnesium hydroxide (Milk of Magnesia) 400 MG/5ML suspension 2.4 g. 4 Active melatonin 3 MG tablet 3 mg. 4 Active omeprazole (PriLOSEC) [address] capsule 5 Active PARoxetine (Paxil) 10 MG tablet 10 mg. 4 Active sulfamethoxazole-t rimethoprim (Bactrim DS) 800-160 MG tablet 4 Active valsartan (Diovan) 40 MG tablet 5 Active vancomycin (Firvanq) 25 MG/ML oral solution 125 mg. 5 Active vancomycin (Firvanq) 50 MG/ML oral solution 5 Active guaiFENesin-dextro methorphan (Robitussin DM) 100-10 MG/5ML syrup Take by mouth. Active lidocaine 4 % dressing Apply topically if needed for mild pain. 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 History of CVA with residual deficit 09/30/2024 HLD (hyperlipidemia) 09/30/2024 HTN (hypertension) 09/30/2024 Encounters Date Type Department Care Team Description 10/14/2024 3:15 PM EDT Office Visit [facility] [address] [place] [address] [phone] Gretel Messer Dental calculus (Primary Dx); Dental plaque; Subgingival dental calculus; Supragingival dental calculus; Tongue fissure; Tongue coating 09/30/2024 9:15 AM EDT Office Visit [facility] [address] [place] [phone] Eyad Campuzano DMD from Last 3 Months Social History Tobacco Use Types Packs/Day Years Used Date Smoking Tobacco: Never Smokeless Tobacco: Never Tobacco Cessation:Counseling Given: Not Answered Sex and Gender Information Value Date Recorded Sex Assigned at Male 08/17/2024 3:15 PM EDT Legal Sex Male 3:14 PM EDT Gender Identity Male 08/17/2024 3:15 PM EDT Sexual Orientation Straight 08/17/2024 3: 15 PM EDT Plan of Treatment Health Maintenance Due Date Last Done Comments CT Colonography 1958 Colonoscopy 1958 Colorectal Cancer Screening 1958 Depression Screening 1958 FIT DNA/Cologuard 1958 FIT 1958 FOBT 1958 Lipid Panel 1958 SDOH Screening 1958 Sigmoidoscopy 1958 Alcohol/Substance Use Screening 1970 Hepatitis C Screening 1976 DTaP/Tdap/Td Vaccines (1 - Tdap) 1977 Pneumococcal Vaccine: 50+ Years (1 of 1 - PCV) 2008 Zoster Vaccines (1 of 2) 2008 RSV Patients and Patients Aged 60 years or older (1 - Risk 60-74 years 1-dose series) 2018 COVID-19 Vaccine (3 - 2023-2 5 season) 2023 07/21/2020, 06/30/2020 Influenza Vaccine (#1) 2024 Dental Oral Exam 04/02/2025 09/30/2024 Dental Prophylaxis 04/16/2025 10/14/2024 Dental X-Ray: Bitewings 10/01/2025 09/30/2024 Tobacco Screening 10/14/2025 10/14/2024 Dental X-Ray: Full Mouth 10/02/2027 09/30/2024 HIB Vaccines Aged Out No longer eligi ble based on patient's age to complete this topic HPV Vaccines Aged Out No longer eligi ble based on patient's age to complete this topic Hepatitis A Vaccines Aged Out No long er eligible based on patient's age to complete this topic Hepatitis B Vaccines Aged Out No long er eligible based on patient's age to complete this topic IPV Vaccines Aged Out No longer eligi ble based on patient's age to complete this topic Meningococcal B Vaccine Aged Out No l onger eligible based on patient's age to complete this topic Meningococcal Vaccine Aged Out No angelique maximus eligible based on patient's age to complete this topic RSV under 20 months Aged Out No longe r eligible based on patient's age to complete this topic Rotavirus Vaccines Aged Out No longer eligible based on patient's age to complete this topic Procedures Procedure Name Priority Date/Time Associated Diagnosis Comments PROPHYLAXIS - ADULT Routine 10/14/2024 3 :15 PM EDT Dental calculus Dental plaque Subgingival dental calculus Supragingival dental calculus Tongue coating FULL MOUTH DEBRIDEMENT TO ENABLE A COMPREHENSIVE ORAL EVALUATION AND DIAGNOSIS ON A SUBSEQUENT VISIT Routine 10/14/2024 3:15 PM EDT Dental calculus Dental plaque Subgingival dental calculus Supragingival dental calculus TOPICAL APPLICATION OF FLUORIDE VARNISH Routine 10/14/2024 3:15 PM EDT TOPICAL APPLICATION OF FLUORIDE VARNISH Routine 09/30/2024 9:15 AM EDT INTRAORAL - COMPLETE SERIES OF RADIOGRAPHIC IMAGES Routine 09/30/2024 9:15 AM EDT BEHAVIOR MANAGEMENT Routine 09/30/2024 9 :15 AM EDT COMPREHENSIVE ORAL EVALUATION - NEW OR ESTABLISHED PATIENT Routine 09/30/2024 9:15 AM EDT 30 MO COMPOSITE FILLING Routine 10/01/19 12:00 AM EDT 31 O AMALGAM FILLING Routine 09/30/2024 12:00 AM EDT 30 B AMALGAM FILLING Routine 09/30/2024 12:00 AM EDT 29 DO AMALGAM FILLING Routine 09/30/2024 12:00 AM EDT 19 DOBL AMALGAM FILLING Routine 10/01/19 12:00 AM EDT 18 MOB AMALGAM FILLING Routine 12:00 AM EDT 15 O AMALGAM FILLING Routine 09/30/2024 12:00 AM EDT 14 DOL AMALGAM FILLING Routine 12:00 AM EDT 13 PFM CROWN Routine 09/30/2024 12:00 AM EDT 5 DO AMALGAM FILLING Routine 09/30/2024 12:00 AM EDT 4 PFM CROWN Routine 09/30/2024 12:00 AM EDT 3 MOL AMALGAM FILLING Routine 09/30/2024 12:00 AM EDT 2 O AMALGAM FILLING Routine 09/30/2024 1 2:00 AM EDT from Last 3 Months
[2024-10-29] MEDS: Albumin Human 25 % 50 ML 100 ML IV ×2 (18:28→19:01)
[2024-10-29 18:37] LABS: Reflex Lactate? Lactic Acid Added
--- NOTE | 2024-10-29 19:14 | PC.NURSE ---
Pt hypotensive, aware, new orders in place.
[2024-10-29 19:44] LABS: Appearance Urine Cloudy; Glucose Urine UA Negative (Negative); PH 5.5 (5.0-9.0); Specific Gravity - Urine 1.015 (1.005-1.025); UMIC TRIGGER UACC YES
[2024-10-29 19:52] LABS: Alanine Aminotransferase 49 U/L (0-40); Albumin Level 2.9 g/dL (3.5-5.0); Alkaline Phosphatase 113 U/L (39-117); Anion Gap 12 (12-20); Aspartate Amino Transferase 36 U/L (5-37); Blood Urea Nitrogen 12 mg/dL (9-16); Calcium 7.8 mg/dL (8.4-10.2); Carbon Dioxide 22 mmol/L (22-29); Chloride 110 mmol/L (96-108); Creatinine Clr Calc Pharmacy 111.3; Estimated Glomerular Filt Rate > 60; Potassium 4.3 mmol/L (3.3-5.1); Sodium 140 mmol/L (135-145); Total Protein 4.8 g/dL (6.5-8.0)
[2024-10-29 19:53] LABS: UACC Culture Trigger YES
[2024-10-29 19:54] LABS: ~Lactic Acid-LAB USE ONLY 3.7 mmol/L (0.5-2.0)
[2024-10-29] MEDS: vancomycin HCL Oral Solution 125 MG/5 ML SOLN.RECON 250 MG PO (20:00)
[2024-10-29 20:17] LABS: Resp Syncy Virus RNA Qual PCR NEGATIVE (Negative); SARS COV2 PCR INHOUSE NEGATIVE (Negative)
[2024-10-29 21:35] LABS: Reflex Lactate? 2 Y
--- NOTE | 2024-10-29 22:35 | PM.IMHP ---
History of Present Illness Date of Service: 10/29/24 Attending physician on admission: Adina Hernandez Chief Complaint: febrile THIS IS A CONSULT NOTE Pt is a 64 yo male unable to provide HPI or medical/surgical hx as pt is aphasic. 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 Pt was transferred to ED via ambulance from [facility] with fever. Pt had been diagnosed with CDIFF this past Saturday. This typewriter aligner did speak to nursing at [facility] and although patient was diagnosed with C diff on 10/27/2024, patient did not start treatment while there because the medication was not available at the [facility]. Apparently patient was to start fidaxomicin. Patient currently is nonverbal and not responding to verbal stimuli.Unable to reach pt's spouse to confirm baseline mental status and advanced directives. Nursing at the [facility] indicate that patient usually is interactive, we will open eyes and interact via yes or no answers. This most likely has a metabolic encephalopathy secondary to sepsis. The ED provider was able to speak to spouse and per her instruciton, pt should be a DNR/ DNR with previous directives listed as resuscitation allowed but DNI. Orders updated on admission. In the emergency room, Pt was started on Cefepime and Vanco via PEG tube in the ED. Pt received fluid resuscitation per sepsis protocol 30mls/Kg but pt still had issues maintaining blood pressure. Pt then received albumin and BP improved. WBCs 30.5, Lactate 3.1 to 3.7, repeat pending. UA postive for UTI. Urine and Blood cultures were drawn. CXR negative for consolidation, opacity but mild pulmonary edema noted. All viral studies are negative. Fever was noted to be 100.6, rising slightly. Ofirmev and Ibuprofen via peg ordered. Pt now has rectal tube which is properly placed via CT and rodríguez, also placed due to urinary retention of 300 ccs. Review of Systems Review of Systems: Yes Unobtainable due to mental condition and Unobtainable due to mental status [facility] Medical History Constipation Chronic GERD Hypertension Hx pulmonary embolism Hypoxia C. difficile diarrhea Cognitive capacity: nonverbal, lethargic Functional capacity: bed bound Pertinent family history: unable to provide Surgical History PEG (percutaneous endoscopic gastrostomy) status Social History (Updated 10/29/24 @ 22:54 by PEDRITO Castle) Household Members: Other Housing: [facility] Housing Other:: [facility] Unable to assess alcohol history related to: Unknown Ebola Risk: Travel/Contact With Anyone From Affected Area/s: No Has Patient Experienced Ebola Symptoms: No Meds Allergies Allergy/AdvReac Type Severity Reaction Status Date / Time No Known Allergies Allergy Verified 10/29/24 16:21 Active Medications: Current Medications Acetaminophen (Acetaminophen 325 Mg Tablet) 650 mg G-TUBE Q6H PRN PRN Reason: Pain, Mild 1-3,fever,headache Albuterol/Ipratropium (Albuterol/Iprat 2.5/0.5mg 3 Ml Ampul.Neb) 3 ml INHALE Q4H PRN PRN Reason: Shortness of Breath/Wheezing Ceftriaxone Sodium (Ceftriaxone Sodium 2 Gm Vial) 2 gm IVPUSH Q24H [facility] Sodium Chloride (Ns) 1,000 mls @ 100 mls/hr IVCONT .Q10H [facility] Acetaminophen (Ofirmev) 1,000 mg in 100 mls @ 400 mls/hr IV ONCE ONE Stop: 10/29/24 22:40 Albumin Human (Kedbumin 25 %) 100 mls @ 133.333 mls/hr IV Q1H [facility] Stop: 10/30/24 00:14 Magnesium Hydroxide (Milk Of Magnesia 30 Ml Oral.Susp) 30 ml G-TUBE DAILY PRN PRN Reason: Constipation Melatonin (Melatonin 3 Mg Tablet) 6 mg PO BEDTIME PRN PRN Reason: Insomnia Ondansetron HCl (Ondansetron Hcl 4 Mg/2 Ml Vial) 4 mg IVPUSH Q8H PRN PRN Reason: Nausea and Vomiting Sodium Chloride (0.9 % Sodium Chloride Flush 3 Ml Syringe) 3 ml IVFLUSH QSHIFT [facility] Vancomycin HCl (Vancomycin Hcl 125 Mg Capsule) 250 mg PO Q6H [facility] Home Medications ?Medication ?Instructions ?Recorded ?Confirmed ?Last Taken ?Type Saccharomyces boulardii 250 mg 250 mg PO BID 09/30/24 09/30/24 Unknown History capsule acetaminophen 650 mg/20.3 mL oral 650 mg PO Q6H PRN 09/30/24 09/30/24 Unknown History suspension apixaban 5 mg tablet 5 mg PO BID 09/30/24 09/30/24 Unknown History atenolol 50 mg tablet 50 mg PO DAILY 09/30/24 09/30/24 Unknown History atorvastatin 40 mg tablet 40 mg PO BEDTIME 09/30/24 09/30/24 Unknown History bisacodyl 10 mg rectal suppository 10 mg MI DAILY PRN 09/30/24 09/30/24 Unknown History calcium polycarbophil 625 mg 1,250 mg PO DAILY 09/30/24 09/30/24 Unknown History tablet (Fiber (calcium polycarbophil)) dextromethorphan-guaifenesin 10 10 ml PO Q4-6H PRN 09/30/24 09/30/24 Unknown History mg-100 mg/5 mL oral liquid lidocaine 4 % topical patch 1 patch topical DAILY PRN 09/30/24 09/30/24 Unknown History (Lidocaine Pain Relief) magnesium hydroxide 400 mg/5 mL 5 ml PO BEDTIME 09/30/24 09/30/24 Unknown History oral suspension melatonin 3 mg capsule 3 mg PO BEDTIME PRN 09/30/24 09/30/24 Unknown History nystatin 100,000 unit/gram topical 1 appl topical BID 09/30/24 09/30/24 Unknown History cream omeprazole magnesium 10 mg oral 20 mg PO BID 09/30/24 09/30/24 Unknown History suspension,delayed release paroxetine HCl 10 mg tablet 10 mg PO DAILY 09/30/24 09/30/24 Unknown History sodium phosphates 19 gram-7 118 ml MI BEDTIME PRN 09/30/24 09/30/24 Unknown History gram/118 mL enema vancomycin 25 mg/mL oral solution 125 mg PO QID 09/30/24 09/30/24 Unknown History (Firvanq) Physical Exam Vital Signs and Narrative: Vital Signs: Last Vital Signs Temp 100.2 F 10/29/24 21:37 Pulse 102 H 10/29/24 21:37 Resp 31 H 10/29/24 21:37 BP 110/53 L 10/29/24 21:37 Pulse Ox 97 10/29/24 21:37 O2 Del Method Room Air 10/29/24 21:37 BMI result Body Mass Index 25.3 nonverbal, somnolent, unable to provide HPI, PMH, PSH Neuro:unable to assess EYES: PERRLA, sclera nonicteric ENT: no conjunctivitis noted, oral mucosa moist Cardiac: S1 S2 RRR, no murmur, no JVD, no edema in Lower ext Pulmonary: lungs diminshed B Abdominal: BS diminshed B, no guarding or tenderness noted on exam, rectal tube in place MSK: unable to assess : rodríguez draining yellow urine with sediment Extremities: no edema in lower extremities, PT and DP pulses palpable +2 Psych:unable to assess Skin: excoriations noted sacrum and buttcks near gluteal fold Results Labs 10/29/24 17:02 10/29/24 19:26 Labs: Laboratory Results - last 24 hr 10/29/24 10/29/24 10/29/24 16:24 17:02 19:26 MCV 86.0 MCH 29.2 MCHC 34.0 RDW 14.4 Plt Count 345 D MPV 9.4 Immature Gran % (Auto) 0.9 H Neut % (Auto) 89.9 H Lymph % (Auto) 1.7 L [place] % (Auto) 7.1 Eos % (Auto) 0.1 Baso % (Auto) 0.3 Lymph # (Auto) 0.5 L [place] # (Auto) 2.2 H Eos # (Auto) 0.0 Baso # (Auto) 0.1 Abs Immat Gran (auto) 0.28 H Absolute Neuts (auto) 27.4 H Absolute Nucleated RBC 0.000 Nucleated RBC % (auto) 0.0 Smear Tech's Comments VERIFIED Anion Gap 12 Estim Creat Clear Calc 111.3 Estimated GFR > 60 Random Glucose 127 H Lactic Acid 3.1 H* Lactic Acid F/U @ 2Hr Calcium 7.8 L D Total Bilirubin 0.6 Direct Bilirubin 0.3 AST 36 ALT 49 H Alkaline Phosphatase 113 Total Protein 4.8 L Albumin 2.9 L Urine Color Yellow Urine Appearance Cloudy Urine pH 5.5 Ur Specific [place] 1.015 Urine Protein Trace Urine Glucose (UA) Negative Urine Ketones Negative Urine Blood Small (1+) H Urine Nitrite Positive H Ur Leukocyte Esterase Large (3+) H Urine RBC 3-5 H Urine WBC >50 H Urine WBC Clumps Present Ur Squamous Epith Cells 0-2 Calcium Oxalate Crystal Present Urine Bacteria 4+ Hyaline Casts 0-2 Influenza Type A (PCR) Influenza Type B (PCR) RSV RNA Qual (PCR) SARS-CoV-2 RNA (RT-PCR) 10/29/24 19:27 MCV MCH MCHC RDW Plt Count MPV Immature Gran % (Auto) Neut % (Auto) Lymph % (Auto) [place] % (Auto) Eos % (Auto) Baso % (Auto) Lymph # (Auto) [place] # (Auto) Eos # (Auto) Baso # (Auto) Abs Immat Gran (auto) Absolute Neuts (auto) Absolute Nucleated RBC Nucleated RBC % (auto) Smear Tech's Comments Anion Gap Estim Creat Clear Calc Estimated GFR Random Glucose Lactic Acid Lactic Acid F/U @ 2Hr 3.7 H* Calcium Total Bilirubin Direct Bilirubin AST ALT Alkaline Phosphatase Total Protein Albumin Urine Color Urine Appearance Urine pH Ur Specific [place] Urine Protein Urine Glucose (UA) Urine Ketones Urine Blood Urine Nitrite Ur Leukocyte Esterase Urine RBC Urine WBC Urine WBC Clumps Ur Squamous Epith Cells Calcium Oxalate Crystal Urine Bacteria Hyaline Casts Influenza Type A (PCR) NEGATIVE Influenza Type B (PCR) NEGATIVE RSV RNA Qual (PCR) NEGATIVE SARS-CoV-2 RNA (RT-PCR) NEGATIVE ECG Attestation: I personally reviewed and interpreted this ECG as follows: (NSR, QTc 430 ) Imaging Radiologist's Impressions: ABD PElvis CT mpression: The bowel pattern is nonobstructed. A rectal tube is in satisfactory position. The colon caliber is normal and contains liquid stool, but no signs of inflammatory colon wall thickening at this time. Thickened urinary bladder wall consider cystitis, correlate with UA CXR Impression: Normal heart size with mild pulmonary vascular congestion. No pulmonary edema. No pneumothorax. Assessment and Plan (1) Sepsis: Qualifiers: Sepsis type: sepsis due to unspecified organism Sepsis acute organ dysfunction status: unspecified Qualified Code(s): A41.9 - Sepsis, unspecified organism Status: Acute Plan This note is consdiered consultation without the ability to accept for admission to the floor as pt's BP required pressors due to septic shock. Pt is a 64 yo male unable to provide HPI or medical/surgical hx as pt is aphasic. 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 Pt meets criteria for sepsis and has CDIFF and UTI. Pt currently nonverbal, nonresponsive, somnolent. CT head ordered for overview. Unable to reach spouse to confirm pt's baseline mental status. Septic Shock secondary to UTI, CDIFF infection Pt received fluid resuscitation per sepsis protocol Hypotension initially an issue delaying acceptance for admission by hospitalist group. Blood pressure improved with albumin for short time. BP then 79/41, requiring pressors. Reviewed with Dr. Hernandez, unable to accept pt and Dr. Hernandez reporting to Dr. De La Rosa. WBCs 30.9, Lactate 3.1, 3.7, 3.7 - fluid resuscitation continues Follow blood and urine cultures Pt now on ceftriaxone 2 GMS Q24H for UTI, received 1 g of cefepime in the ED Vanoc 250 mgs Q6h via G tube for CDIFF Please note per nursing, pt did not start tx on the as the [facility] home did not have the medicaiton available Telemetry ordered Ofirmev, one dose of Ibuprofen via PEG, ICE packs for fever reduction PPI ordered Metabolic encephalopathy secondary to sepsis Pt somnolent, unresponsive to verbal stimuli, sternal rub - likely due to sepsis CT of the head ordered noting patient's stroke history - reviewed with hospitalist attending prior to ordering [facility] patient is interactive, opens eyes and will say yes or no but is otherwise nonverbal at baseline Antibiotics, fluid resuscitation, and antipyretics as well as ice packs ordered to help lower temp Mild Pulmonary Edema via CXR No evdience of hypoxia CXR negative for PNA BNP ordered BP low stable, avoiding use of Lasix for now but will continue to monitor Hypocalcemia Albumin 2.9, corrected Ca is 8.7 Will check ionized calcium Skin excoriations related to CDIFF infeciton WOund care consulted Hx of R thalmic Stroke Baseline mental status pt is interactive, yes/no, but mostly non verbal and is bedbound Hx of PE Pt is on elqiuis DVT prophylaixs: Eliquis PPI: Protonix IV Quality Stroke Does the patient have a stroke diagnosis?: No Reason for No Anti-thrombotic by Day Two: N/A - Med Ordered VTE Prior VTE?: No VTE Risk Level:: Medical - moderate - high VTE Device Contraindication: N/A - Device Ordered VTE Drug Contraindication: N/A - Med Ordered
[2024-10-29] MEDS: Ibuprofen Oral Susp 200 MG/10 ML ORAL.SUSP 600 MG PO (22:36)
[2024-10-29] MEDS: Albumin Human 25 % 100 ML 133.33 ML IV ×2 (22:37→23:24)
[2024-10-29 23:00] LABS: ~Lactic Acid-LAB USE ONLY 3.7 mmol/L (0.5-2.0)
[2024-10-29] MEDS: 0.9 % Sodium Chloride Flush 3 ML SYRINGE IVFLUSH (23:26)
[2024-10-29] MEDS: Lactated Ringers 1,000 ML 999 ML IV (23:34)
[2024-10-29 23:36] LABS: Magnesium 1.6 mg/dL (1.6-2.6)
[2024-10-29 23:51] LABS: Free T4 (Free Thyroxine) 1.10 ng/dL (0.71-1.85); Thyroid Stimulating Hormone 0.31 uIU/mL (0.32-4.0)
[2024-10-30] VITALS (42 sets, daily range): BP systolic 78–144; BP diastolic 42–77; PULSE 70–91; RESP 15–27; TEMP 36–37.3; O2SAT 93–98; BMI 25.3
[2024-10-30] MEDS: Albumin Human 25 % 100 ML 133.33 ML IV ×2 (00:13→01:06)
--- NOTE | 2024-10-30 01:51 | PM.CCHP ---
History of Present Illness Date of Service: 10/30/24 <ERIKA Eckert - Last Filed: 10/30/24 19:33> Attending physician on admission: Scott Guerrero <ERIKA Eckert - Last Filed: 10/30/24 19:33> Chief Complaint: Acute Septic Shock, UTI, C DIFF colitis <ERIKA Eckert - Last Filed: 10/30/24 19:33> The patient is a 64-year-old male resident of the [facility] with underlying history of hypertension, hyperlipidemia, chronic constipation, recurrent C diff colitis who has a G-tube in the left abdomen, hemorrhagic stroke, history of PE currently on Eliquis.? Reportedly the patient was diagnosed with C diff colitis 3 days ago and was to start fidaxomicin.? The patient was transferred to emergency room as the patient was noted to be less interactive than usual.? At baseline the patient open closes his eyes for yes or no questions.? Upon arrival to the ER his workup revealed white count 30.5, H and H of 13.6 and 40 respectively, platelet 345, no bandemia.? His chemistries shows a normal electrolytes and intact renal function however lactic acid was elevated at 3.1.? Urinalysis is significantly positive for UTI with nitrates, white blood cells and leukocytes.? Respiratory panel negative.? Chest x-ray was negative for pathology.? Abdominal and pelvis CT without contrast showed bowel gas pattern without obstruction, rectal tube in satisfactory position: Caliber of normal size with liquid stool no evidence of inflammation or colon thickening.? However thickened urinary bladder wall consider cystitis and correlate with UA. ?The patient received 30 mL/kilos per sepsis protocol and was started on cefepime and subsequently Rocephin. ?The patient also received 2 doses of albumin salt and despite all this, patient's blood pressure continued to deteriorate, subsequently the patient was started on Levophed. ?The patient will be transferred to the ICU for further care. <ERIKA Eckert - Last Filed: 10/30/24 19:33> Review of Systems Review of Systems: Yes Unobtainable due to mental status <ERIKA Eckert Last Filed: 10/30/24 19:33> [facility] Past Medical History Medical History: Medical History Constipation Chronic GERD Hypertension Hx pulmonary embolism Hypoxia C. difficile diarrhea <ERIKA Eckert - Last Filed: 10/30/24 19:33> Surgical History Surgical History: Surgical History PEG (percutaneous endoscopic gastrostomy) status <ERIKA Eckert - Last Filed: 10/30/24 19:33> Social History Social History: Social History Household Members: Other Housing: Assisted Housing Other:: [facility] Unable to assess alcohol history related to: Unknown Patient Tobacco Use Status: Former Tobacco user Tobacco use type: Cigarette Years Smoked: 20 Smoked in Last 30 Days: No Currently Displaying Signs/Symptoms of Drug Intoxication Withdrawal: No Advance Directives: No Advance Directives Information Provided: No service: Yes <ERIKA Eckert - Last Filed: 10/30/24 19:33> Travel History Ebola Risk: Travel/Contact With Anyone From Affected Area/s: No <ERIKA Eckert - Last Filed: 10/30/24 19:33> Has Patient Experienced Ebola Symptoms: No <ERIKA Eckert - Last Filed: 10/30/24 19:33> Meds Allergies/Adverse reactions: Allergies Allergy/AdvReac Type Severity Reaction Status Date / Time No Known Allergies Allergy Verified 10/29/24 16:21 <ERIKA Eckert - Last Filed: 10/30/24 19:33> Active Medications: Current Medications Apixaban (Apixaban 5 Mg Tablet) 5 mg PO BID [facility] Norepinephrine Bitartrate (Levophed) 8 mg in 250 mls @ 0 mls/hr IVCONT .Q0M [facility]; Protocol Last Titration: 10/30/24 01:44 Dose: 0.1 mcg/kg/min, 13.76 mls/hr Piperacillin Sod/Tazobactam (Sod 4.5 gm/ Sodium Chloride) 100 mls @ 200 mls/hr IV Q6H [facility] Last Infusion: 10/30/24 01:43 Dose: Infused Metronidazole (Flagyl) 500 mg in 100 mls @ 100 mls/hr IV Q8H [facility] Magnesium Sulfate (Magnesium Sulfate/H2o) 2 gm in 50 mls @ 25 mls/hr IV ONCE ONE Stop: 10/30/24 03:45 Omeprazole (Omeprazole 20 Mg Capsule.Dr) 20 mg PO BID ONE Stop: 10/30/24 06:01 Sodium Chloride (0.9 % Sodium Chloride Flush 3 Ml Syringe) [facility] Last Admin: 10/29/24 23:26 Dose: 3 ml Vancomycin HCl (Vancomycin Hcl 125 Mg Capsule) 250 mg PO Q6H [facility] <ERIKA Eckert - Last Filed: 10/30/24 19:33> Home medications: Home Medications ?Medication ?Instructions ?Recorded ?Confirmed ?Last Taken ?Type acetaminophen 650 mg/20.3 mL oral 640 mg feeding tube Q6H PRN Pain 09/30/24 10/30/24 10/14/24 History suspension apixaban 5 mg tablet 5 mg feeding tube BID 09/30/24 10/30/24 10/29/24 History atenolol 50 mg tablet 50 mg feeding tube DAILY 09/30/24 10/30/24 10/29/24 History atorvastatin 40 mg tablet 40 mg feeding tube BEDTIME 09/30/24 10/30/24 10/28/24 History bisacodyl 10 mg rectal suppository 10 mg SD DAILY PRN Constipation 09/30/24 10/30/24 Unknown History calcium polycarbophil 625 mg 625 mg feeding tube DAILY 09/30/24 10/30/24 08/18/24 History tablet (Fiber (calcium polycarbophil)) lidocaine 4 % topical patch 1 patch topical DAILY PRN Pain 09/30/24 10/30/24 10/29/24 History (Lidocaine Pain Relief) omeprazole magnesium 10 mg oral 40 mg feeding tube DAILY@0630 09/30/24 10/30/24 10/29/24 History suspension,delayed release Lactobacillus acidoph-L.bulgaricus 1 tab feeding tube TID 10/30/24 10/30/24 10/29/24 History 1 million cell tablet acetaminophen 650 mg rectal 650 mg SD DAILY PRN Fever 10/30/24 10/30/24 Unknown History suppository acetaminophen 650 mg/20.3 mL oral 640 mg feeding tube BID General 10/30/24 10/30/24 Unknown History suspension Discomfort ascorbic acid (vitamin C) 500 mg 500 mg feeding tube BID 10/30/24 10/30/24 09/21/24 History tablet (Vitamin C) fidaxomicin 200 mg tablet (Dificid) 200 mg feeding tube BID 10/30/24 10/30/24 10/29/24 History melatonin 3 mg tablet 3 mg feeding tube BEDTIME 10/30/24 10/30/24 10/28/24 History paroxetine HCl 10 mg/5 mL oral 10 mg feeding tube DAILY 10/30/24 10/30/24 10/29/24 History suspension <ERIKA Eckert - Last Filed: 10/30/24 19:33> Physical Exam Vital Signs: Vital Signs: Last Vital Signs Temp 99.1 F 10/30/24 00:58 Pulse 89 10/30/24 01:44 Resp 19 10/30/24 00:58 BP 109/58 L 10/30/24 01:44 Pulse Ox 96 10/30/24 00:58 O2 Del Method Nasal Cannula 10/30/24 00:58 O2 Flow Rate 2 10/30/24 00:58 BMI result Body Mass Index 25.3 <ERIKA Eckert - Last Filed: 10/30/24 19:33> Sepsis exam done at 01:30 am on 10/30/2024 General:? Alert unable to determine orientation.? The patient is nonverbal.? Unable to follow commands. Skin:? Thin, Intact, no lesions, edema, erythema, clubbing or cyanosis.? No ulcers. HEENT:? Head is normocephalic, atraumatic, pupils equal. Buccal mucosa is dry. Neck is supple without lymphadenopathy. Cardiac:? Clear S1-S2, no murmurs rubs or gallops. Pulmonary:? Diminished lung sounds bilaterally fine expiratory wheezing bilaterally .? No crackles, rales or rhonchi. Abdomen:? Protuberant, positive bowel sounds in all 4 quadrants.? Soft, nontender, no rebound or guarding.? J-tube in place with clean, dry, intact surroundings.? Rectal tube in place with yellow, liquid, foul smelling stool. Musculoskeletal:? Contractures and atrophy of the upper and lower extremities bilaterally. ?There is no leg edema , no calf tenderness , no leg asymmetry.? Gait not assessed at this point. Neurologic:? As above.? Had reported baseline, no apparent deficits. Vascular:? 2+ pulses upper and lower extremities distally.? Less than 2nd capillary refill of fingers and toes bilaterally upper and lower extremities <ERIKA Eckert - Last Filed: 10/30/24 19:33> Results Labs CBC and Chem 7: 10/30/24 08:10 10/30/24 08:10 <ERIKA Eckert - Last Filed: 10/30/24 19:33> Labs: Laboratory Results - last 24 hr 10/29/24 10/29/24 10/29/24 16:24 17:02 19:26 MCV 86.0 MCH 29.2 MCHC 34.0 RDW 14.4 Plt Count 345 D MPV 9.4 Immature Gran % (Auto) 0.9 H Neut % (Auto) 89.9 H Lymph % (Auto) 1.7 L [place] % (Auto) 7.1 Eos % (Auto) 0.1 Baso % (Auto) 0.3 Lymph # (Auto) 0.5 L [place] # (Auto) 2.2 H Eos # (Auto) 0.0 Baso # (Auto) 0.1 Abs Immat Gran (auto) 0.28 H Absolute Neuts (auto) 27.4 H Absolute Nucleated RBC 0.000 Nucleated RBC % (auto) 0.0 Smear Tech's Comments VERIFIED Anion Gap 12 Estim Creat Clear Calc 111.3 Estimated GFR > 60 Random Glucose 127 H Lactic Acid 3.1 H* Lactic Acid F/U @ 2Hr Lactic Acid F/U @ 4Hr Calcium 7.8 L D Magnesium 1.6 Total Bilirubin 0.6 Direct Bilirubin 0.3 AST 36 ALT 49 H Alkaline Phosphatase 113 Total Protein 4.8 L Albumin 2.9 L TSH 0.31 L Free T4 1.10 Urine Color Yellow Urine Appearance Cloudy Urine pH 5.5 Ur Specific [place] 1.015 Urine Protein Trace Urine Glucose (UA) Negative Urine Ketones Negative Urine Blood Small (1+) H Urine Nitrite Positive H Ur Leukocyte Esterase Large (3+) H Urine RBC 3-5 H Urine WBC >50 H Urine WBC Clumps Present Ur Squamous Epith Cells 0-2 Calcium Oxalate Crystal Present Urine Bacteria 4+ Hyaline Casts 0-2 Influenza Type A (PCR) Influenza Type B (PCR) RSV RNA Qual (PCR) SARS-CoV-2 RNA (RT-PCR) 10/29/24 10/29/24 19:27 22:32 MCV MCH MCHC RDW Plt Count MPV Immature Gran % (Auto) Neut % (Auto) Lymph % (Auto) [place] % (Auto) Eos % (Auto) Baso % (Auto) Lymph # (Auto) [place] # (Auto) Eos # (Auto) Baso # (Auto) Abs Immat Gran (auto) Absolute Neuts (auto) Absolute Nucleated RBC Nucleated RBC % (auto) Smear Tech's Comments Anion Gap Estim Creat Clear Calc Estimated GFR Random Glucose Lactic Acid Lactic Acid F/U @ 2Hr 3.7 H* Lactic Acid F/U @ 4Hr 3.7 H* Calcium Magnesium Total Bilirubin Direct Bilirubin AST ALT Alkaline Phosphatase Total Protein Albumin TSH Free T4 Urine Color Urine Appearance Urine pH Ur Specific [place] Urine Protein Urine Glucose (UA) Urine Ketones Urine Blood Urine Nitrite Ur Leukocyte Esterase Urine RBC Urine WBC Urine WBC Clumps Ur Squamous Epith Cells Calcium Oxalate Crystal Urine Bacteria Hyaline Casts Influenza Type A (PCR) NEGATIVE Influenza Type B (PCR) NEGATIVE RSV RNA Qual (PCR) NEGATIVE SARS-CoV-2 RNA (RT-PCR) NEGATIVE <ERIKA Eckert - Last Filed: 10/30/24 19:33> Assessment and Plan (1) Septic shock: Status: Acute <ERIKA Eckert - Last Filed: 10/30/24 19:33> ASSESSMENT : 1. Acute septic shock 2. Acute UTI 3. Acute C diff colitis 4. Acute Hypovolemic shock 5. Pseudo hypocalcemia with corrected calcium level of 8.6. 6. Hypoalbuminemia 7. Sick euthyroid syndrome with low TSH and normal T4 8. Acute metabolic and lactic acidosis due to the above. 9. Acute metabolic encephalopathy due to the above CODE STATUS DNR / DNI PLAN OF CARE: The patient will be transferred to the ICU, monitor vital signs and I's and O's, contact precautions, start him on Zosyn, we will start him on IV Flagyl as oral vancomycin is not available at this point.? He has received more than 3.5 L of IV fluids, he is starting to sound a little coarse at the bases, more fluid would put him at risk of CHF.? Albumin replacement, IV magnesium.?Levophed per protocol. Repeat laboratories in the morning.? We will hold his antihypertensive medications. GI PROPHYLAXIS:? On omeprazole via PEG tube DVT PROPHYLAXIS:? Resume Eliquis Critical care time used for critical evaluation of this patient, diagnosis, treatment and coordination of care, review her records and documentation TOTAL CRITICAL CARE TIME?90 MIN . discussion and coordination with consultants, completely separate from any procedures performed. Patient's care was discussed in detail with Dr. Guerrero who is aware of all the above as well as the plan of care for this patient. <ERIKA Eckert - Last Filed: 10/30/24 19:33> ASSESSMENT : 1. Acute septic shock 2. Acute UTI 3. Acute C diff colitis 4. Acute Hypovolemic shock 5. Pseudo hypocalcemia with corrected calcium level of 8.6. 6. Hypoalbuminemia 7. Sick euthyroid syndrome with low TSH and normal T4 8. Acute metabolic and lactic acidosis due to the above. 9. Acute metabolic encephalopathy due to the above CODE STATUS DNR / DNI PLAN OF CARE: The patient will be transferred to the ICU, monitor vital signs and I's and O's, contact precautions, start him on Zosyn, we will start him on IV Flagyl as oral vancomycin is not available at this point.? He has received more than 3.5 L of IV fluids, he is starting to sound a little coarse at the bases, more fluid would put him at risk of CHF.? We will start him on Levophed and titrated to keep the map above 65 mm Hg. Albumin replacement, IV magnesium.?Repeat laboratories in the morning.? We will hold his antihypertensive medications. He has lactic acidosis secondary to shock, we will trend lactate. We will start him on empiric Zosyn given possible urinary tract infection and we will down titrate the antibiotics once the cultures are back. He has acute hypokalemia and hypophosphatemia which we will replace. GI PROPHYLAXIS:? On omeprazole via PEG tube DVT PROPHYLAXIS:? Resume Eliquis Critical care time used for critical evaluation of this patient, diagnosis, treatment and coordination of care, review her records and documentation TOTAL CRITICAL CARE TIME?90 MIN . discussion and coordination with consultants, completely separate from any procedures performed. Patient's care was discussed in detail with Dr. Guerrero who is aware of all the above as well as the plan of care for this patient. <Scott Guerrero MD - Last Filed: 10/30/24 13:15> Total time managing care of this patient today: 90 minutes. <ERIKA Eckert - Last Filed: 10/30/24 19:33>
[2024-10-30] MEDS: metroNIDAZOLE/NS 500 MG/100 ML PIGGYBACK 100 MG IV ×3 (02:07→18:11)
[2024-10-30] MEDS: Magnesium Sulfate/H2O 2 GM/50 ML PIGGYBACK IV (02:09)
--- NOTE | 2024-10-30 02:36 | PC.NURSE ---
CENTRAL LINE PLACED BY DR. SELLERS. TRIPLE LUMEN TO RIGHT FEMORAL
--- NOTE | 2024-10-30 02:52 | PC.NURSE ---
called report to [facility] MANAGERLILLY Herron
[2024-10-30 06:00] LABS: B Type Natriuretic Peptide 810 pg/mL (<100)
--- NOTE | 2024-10-30 07:21 | HE.ICUCC ---
ICU Critical Care Nursing Note Patient admitted for acute septic shock, UTI. ICU Day #:1 Neuro:Patient is nonverbal at baseline/ Cardiac:SR on telemetry. No edema noted Resp: LS clear/diminished GI/:hypoactive BS/ rectal tube in place. Indwelling rodríguez cath placed in ED for urinary retention/draining yellow urine with sediment Integumentary/Musculoskeletal: St 2 on buttocks/gluteal fold Psychosocial (family etc.): at bedside during admission Infectious Disease: Contact precautions for C.Diff Central Lines: TLC right femoral
[2024-10-30 07:31] LABS: Reflex Lactate? Lactic Acid Added
--- NOTE | 2024-10-30 07:34 | HO.SKINPHOTO ---
Location: Category: Stage: Length: Width: Depth: cm Location: Category: Stage: Length: Width: Depth: cm Location: Category: Stage: Length: Width: Depth: cm Location: Category: Stage: Length: Width: Depth: cm Location: Category: Stage: Length: Width: Depth: cm Location: Category: Stage: Length: Width: Depth: cm
--- NOTE | 2024-10-30 07:36 | HO.SKINPHOTO ---
Location: Categ Location:coccyx Category: pressure ulcer Stage: Length: Width: Depth: cm
[2024-10-30 08:21] LABS: Hematocrit 34.8 % (42.0-52.0); Hemoglobin 11.8 g/dl (14.0-18.0); Mean Corpuscular HGB Conc 33.9 g/dl (31.0-36.0); Mean Corpuscular Hemoglobin 29.9 pg (27.0-33.0); Mean Corpuscular Volume 88.1 fL (80.0-98.0); NRBC Abs Auto 0.000 X10*3/uL (0.0-0.012); NRBC Pct Auto 0.0 /100WBC (0.0-0.2); Platelet Count 334 X10*3/uL (160-400); Red Blood Count 3.95 X10*6/uL (4.60-5.80)
[2024-10-30 08:24] LABS: VBG HCO3 22 mmol/L (22-26); VBG O2 % Saturation 79.0 %
[2024-10-30 08:26] LABS: White Blood Count 36.9 X10*3/uL (4.8-10.8)
[2024-10-30 08:30] LABS: Venous Blood Gas Refer to POC result
[2024-10-30 08:37] LABS: Alanine Aminotransferase 40 U/L (0-40); Albumin Level 4.0 g/dL (3.5-5.0); Alkaline Phosphatase 90 U/L (39-117); Anion Gap 12 (12-20); Aspartate Amino Transferase 33 U/L (5-37); Blood Urea Nitrogen 9 mg/dL (9-16); Calcium 8.4 mg/dL (8.4-10.2); Carbon Dioxide 21 mmol/L (22-29); Chloride 113 mmol/L (96-108); Creatinine Clr Calc Pharmacy 121.3; Estimated Glomerular Filt Rate > 60; Magnesium 2.2 mg/dL (1.6-2.6); Potassium 3.2 mmol/L (3.3-5.1); Sodium 143 mmol/L (135-145); Total Protein 5.4 g/dL (6.5-8.0)
[2024-10-30 08:38] LABS: ~Lactic Acid-LAB USE ONLY 2.3 mmol/L (0.5-2.0)
[2024-10-30 08:57] LABS: Atypical Lymph Absolute Manual 0.4 x10*3/uL; Atypical Lymphs Percent Manual 1 % (0-6); Band Neutrophils Percent 19 % (3-5); Lymphocytes Absolute Manual 0.4 X10*3/uL (1.2-4.9); Lymphocytes Percent Manual 1 % (20-40); Metamyelocytes Absolute 0.4 X10*3/uL; Metamyelocytes Percent 1 %; Monocytes Absolute Manual 0.7 X10*3/uL (0.1-1.2); Monocytes Percent Manual 2 % (2-11); Neutrophils Absolute Manual 35.1 X10*3/uL (2.0-8.3); Neutrophils Percent Manual 76 % (45-73)
[2024-10-30 08:58] LABS: RBC Morphology NORMAL
[2024-10-30] MEDS: 0.9 % Sodium Chloride Flush 3 ML SYRINGE IVFLUSH ×2 (09:08→14:50)
[2024-10-30] MEDS: LACTATED RINGERS 2202 ML IV (09:55)
--- NOTE | 2024-10-30 10:00 | PHA.MEDREC ---
Addendum entered by Xena Rachel RPh 10/30/24 10:59: Reviewed by [facility] Original Note: Pharmacy Consult ? Medication Reconciliation Pharmacy has completed the medication reconciliation. Utilized list from [facility].
--- NOTE | 2024-10-30 10:14 | MHC.CM.PN ---
Met w/pt and spouse : pt is a LTC resident of the [facility] and is dependent on staff for care needs. Pt is non verbal but able to communicate with head nods. IMM in chart. HCP requested. BLS transport to [facility].
[2024-10-30 10:16] LABS: Reflex Lactate? 2 Y
--- NOTE | 2024-10-30 10:51 | MHC.CLN ---
NUTRITION NPO AND RECEIVES NUTRITION/HYDRATION VIA PEG. UTI AND C-DIFF WITH EXCORIATED SKIN TO COCCYX/BUTTOCK. PER CONVERSATION WITH NURSE AT [facility], RECEIVES TUBE FEED BOLUS JEVITIY 1.2 360 ML Q 6 HOURS. FOR COMPARABLE NUTRITION, WILL START JEVITY TUBE FEEDING: JEVITY 1.0 AT 70 ML/HOUR, 1780 KCALS (24.3 KCALS/KG), 74 G PROTEIN (1 G/KG), 1403 ML FREE WATER FROM FORMULA. ADD FLUSH 240 ML Q 8 HOURS TO PROVIDE TOTAL FREE WATER 2123 ML (28.9 ML/KG). FOLLOW FOR TUBE FEED TOLERANCE AND SKIN INTEGRITY. SEE CLINICAL NUTRITION ASSESSMENT 10/30/24.
[2024-10-30 11:21] LABS: ~Lactic Acid-LAB USE ONLY 2.7 mmol/L (0.5-2.0)
[2024-10-30] MEDS: Lactated Ringers 1,000 ML 100 ML IVCONT ×2 (13:07→23:00)
[2024-10-30] MEDS: vancomycin HCL Oral Solution 125 MG/5 ML SOLN.RECON 500 MG PO ×2 (13:07→18:12)
--- NOTE | 2024-10-30 13:35 | HO.WOUND ---
Wound Consult: Initial 64yr old?male admitted to [facility] on 10/30/24- See progress notes and H&P for detailed history.? Wound consult placed for sacral area.? Chart reviewed and photo review - unable to assess in person on this date - topical recommendations made below after review and assessment - will require in person assessment at future date and time. Coccyx and Sacrum Etiology: ??Stage 2 Pressure Injures Present on Admission Wound Bed: coccyx is red appears clean suspect psuedo slough to wound bed sacrum appears may be resolving dried dark red wound bed Drainage / Odor: unknown Edges: ? macerated Alethea wound: MASD and friction noted as evidence by desquamation Goals of Treatment: ? Triad to protect from friction and Moisture Recommendations: 1. Turn and Reposition every 2 hours and as needed for patient comfort.? Use pillows or wedges to support off loading positions. 2. Off Load all bony prominences with use of pillows and heel boots if needed.? Apply Preventative foams where needed. ? 3. Monitor for incontinence and moisture control, use barrier creams when needed for prevention and treatment. 4. Provide adequate and supplemental nutrition.? 5. Order low air loss mattress. 6. When applicable maintain blood glucose levels per Providers order. Sacrum and Coccyx - Off Load Pressure with Q2 hr turns and use of pillows - Cleanse with PH balance spray or wipes, pat dry. ?Apply thin layer of Triad to wound bed - only pat and dab no scrub and rub when soiling occurs. Reapply thin layer PRN after each episode of incontinence. Re-consult wound care Nurse for wound deterioration or wound changes.
--- NOTE | 2024-10-30 17:26 | PM.EVENT ---
Event Note Date of Service: 10/31/24 Event Note: Patient is already seen and examined by icu team this morning, seen and examined again. Denies any complaints Patient was the Levophed drip this afternoon,leucocytosis ,lactic trending up blood culture 1/2 gram positive cocci -as per icu seems contaminant Assessment and plan and physical exam as per icu note. d/w icu is planning to moniter until evenin continue vanco po/zosyn iv ?uti id eval Time Spent With Patient Time: Total time managing care of this patient today ____ minutes.
[2024-10-31] VITALS (8 sets, daily range): BP systolic 102–130; BP diastolic 54–67; PULSE 67–78; RESP 18–20; TEMP 36.4–37.3; O2SAT 98–99; BMI 27.6
[2024-10-31] MEDS: 0.9 % Sodium Chloride Flush 3 ML SYRINGE IVFLUSH ×3 (00:23→16:08)
[2024-10-31] MEDS: vancomycin HCL Oral Solution 125 MG/5 ML SOLN.RECON 500 MG PO ×4 (00:24→18:27)
[2024-10-31] MEDS: metroNIDAZOLE/NS 500 MG/100 ML PIGGYBACK 100 MG IV ×3 (01:26→17:31)
[2024-10-31 06:22] LABS: Hematocrit 35.9 % (42.0-52.0); Hemoglobin 11.8 g/dl (14.0-18.0); Mean Corpuscular HGB Conc 32.9 g/dl (31.0-36.0); Mean Corpuscular Hemoglobin 29.4 pg (27.0-33.0); Mean Corpuscular Volume 89.3 fL (80.0-98.0); NRBC Abs Auto 0.000 X10*3/uL (0.0-0.012); NRBC Pct Auto 0.0 /100WBC (0.0-0.2); Platelet Count 273 X10*3/uL (160-400); Red Blood Count 4.02 X10*6/uL (4.60-5.80); White Blood Count 22.8 X10*3/uL (4.8-10.8)
[2024-10-31 06:41] LABS: Band Neutrophils Percent 15 % (3-5); Lymphocytes Absolute Manual 0.7 X10*3/uL (1.2-4.9); Lymphocytes Percent Manual 3 % (20-40); Monocytes Absolute Manual 0.7 X10*3/uL (0.1-1.2); Monocytes Percent Manual 3 % (2-11); Neutrophils Absolute Manual 21.4 X10*3/uL (2.0-8.3); Neutrophils Percent Manual 79 % (45-73); RBC Morphology NORMAL
[2024-10-31 06:42] LABS: Dohle Bodies PRESENT; Toxic Granulation PRESENT
[2024-10-31 06:45] LABS: Alanine Aminotransferase 32 U/L (0-40); Albumin Level 3.1 g/dL (3.5-5.0); Alkaline Phosphatase 80 U/L (39-117); Anion Gap 11 (12-20); Aspartate Amino Transferase 29 U/L (5-37); Blood Urea Nitrogen 10 mg/dL (9-16); Calcium 8.1 mg/dL (8.4-10.2); Carbon Dioxide 24 mmol/L (22-29); Chloride 110 mmol/L (96-108); Creatinine Clr Calc Pharmacy 129.2; Estimated Glomerular Filt Rate > 60; Magnesium 2.0 mg/dL (1.6-2.6); Potassium 2.7 mmol/L (3.3-5.1); Sodium 142 mmol/L (135-145); Total Protein 4.7 g/dL (6.5-8.0)
[2024-10-31] MEDS: Potassium Chloride/H20 10 MEQ/100 ML PIGGYBACK 100 MEQ IV ×7 (07:45→17:30)
[2024-10-31] MEDS: Lactated Ringers 1,000 ML 100 ML IVCONT (09:35)
[2024-10-31] MEDS: Omeprazole/Na Bicarb Oral Susp 20 MG/10 ML UD Cup PO ×2 (11:56→20:47)
[2024-10-31] MEDS: Potassium Chloride Packet 20 MEQ PACKET 40 MEQ G-TUBE (11:57)
--- NOTE | 2024-10-31 14:36 | W.PM.IDCN ---
History of Present Illness Data of Consult Service Date: 10/31/24 Requesting physician: Genia Velazco Primary Care Provider: Miller Caban MD HPI Reason for consult: loose stool,leukocytosis He presents on 10/29 (2 days ago) from [facility]. He was weak and was brought to ER. He has loose stool He has feeding tube. He has CT scan chest some bronchitis. There is no definite colitis Review of Systems Review of Systems: Yes Unobtainable due to mental status PMFSH Past Medical History Medical History Constipation Chronic GERD Hypertension Hx pulmonary embolism Hypoxia C. difficile diarrhea Surgical History Surgical History PEG (percutaneous endoscopic gastrostomy) status Social History Social History Household Members: Other Housing: Intermediate Housing Other:: [facility] Unable to assess alcohol history related to: Unknown Patient Tobacco Use Status: Former Tobacco user Tobacco use type: Cigarette Years Smoked: 20 Smoked in Last 30 Days: No Currently Displaying Signs/Symptoms of Drug Intoxication Withdrawal: No Advance Directives: No Advance Directives Information Provided: No service: Yes Travel History Ebola Risk: Travel/Contact With Anyone From Affected Area/s: No Has Patient Experienced Ebola Symptoms: No Meds Allergies Allergy/AdvReac Type Severity Reaction Status Date / Time No Known Allergies Allergy Verified 10/29/24 16:21 Active Medications: Current Medications Apixaban (Apixaban 5 Mg Tablet) 5 mg PO BID [facility] Last Admin: 10/31/24 09:40 Dose: 5 mg Ascorbic Acid (Ascorbic Acid 500 Mg Tablet) 500 mg G-TUBE BID [facility] Last Admin: 10/31/24 10:36 Dose: 500 mg Atorvastatin Calcium (Atorvastatin Calcium 40 Mg Tablet) 40 mg G-TUBE BEDTIME [facility] Last Admin: 10/30/24 21:00 Dose: 40 mg Piperacillin Sod/Tazobactam (Sod 4.5 gm/ Sodium Chloride) 100 mls @ 200 mls/hr IV Q6H [facility] Last Infusion: 10/31/24 12:27 Dose: Infused Metronidazole (Flagyl) 500 mg in 100 mls @ 100 mls/hr IV Q8H [facility] Last Infusion: 10/31/24 11:35 Dose: Infused Lactated Ringer's (Lr) 1,000 mls @ 100 mls/hr IVCONT .Q10H [facility] Last Admin: 10/31/24 09:35 Dose: 100 mls/hr Potassium Chloride (Potassium Chloride/H20) 10 meq in 100 mls @ 100 mls/hr IV Q1H [facility] Stop: 10/31/24 16:59 Melatonin (Melatonin 3 Mg Tablet) 3 mg G-TUBE BEDTIME [facility] Last Admin: 10/30/24 21:16 Dose: Not Given Omeprazole (Omeprazole/Na Bicarb Oral Susp 20 Mg/10 Ml Ud Cup) 20 mg PO BID [facility] Last Admin: 10/31/24 11:56 Dose: 20 mg Paroxetine HCl (Paroxetine Hcl 10 Mg Tablet) 10 mg PO DAILY [facility] Last Admin: 10/31/24 09:40 Dose: 10 mg Sodium Chloride (0.9 % Sodium Chloride Flush 3 Ml Syringe) 3 ml IVFLUSH QSHIFT [facility] Last Admin: 10/31/24 07:50 Dose: 3 ml Vancomycin HCl (Vancomycin Hcl Oral Solution 125 Mg/5 Ml Soln.Recon) 500 mg PO Q6H [facility] Last Admin: 10/31/24 13:06 Dose: 500 mg Home Medications ?Medication ?Instructions ?Recorded ?Confirmed ?Last Taken ?Type acetaminophen 650 mg/20.3 mL oral 640 mg feeding tube Q6H PRN Pain 09/30/24 10/30/24 10/14/24 History suspension apixaban 5 mg tablet 5 mg feeding tube BID 09/30/24 10/30/24 10/29/24 History atenolol 50 mg tablet 50 mg feeding tube DAILY 09/30/24 10/30/24 10/29/24 History atorvastatin 40 mg tablet 40 mg feeding tube BEDTIME 09/30/24 10/30/24 10/28/24 History bisacodyl 10 mg rectal suppository 10 mg NE DAILY PRN Constipation 09/30/24 10/30/24 Unknown History calcium polycarbophil 625 mg 625 mg feeding tube DAILY 09/30/24 10/30/24 08/18/24 History tablet (Fiber (calcium polycarbophil)) lidocaine 4 % topical patch 1 patch topical DAILY PRN Pain 09/30/24 10/30/24 10/29/24 History (Lidocaine Pain Relief) omeprazole magnesium 10 mg oral 40 mg feeding tube DAILY@0630 09/30/24 10/30/24 10/29/24 History suspension,delayed release Lactobacillus acidoph-L.bulgaricus 1 tab feeding tube TID 10/30/24 10/30/24 10/29/24 History 1 million cell tablet acetaminophen 650 mg rectal 650 mg NE DAILY PRN Fever 10/30/24 10/30/24 Unknown History suppository acetaminophen 650 mg/20.3 mL oral 640 mg feeding tube BID General 10/30/24 10/30/24 Unknown History suspension Discomfort ascorbic acid (vitamin C) 500 mg 500 mg feeding tube BID 10/30/24 10/30/24 09/21/24 History tablet (Vitamin C) fidaxomicin 200 mg tablet (Dificid) 200 mg feeding tube BID 10/30/24 10/30/24 10/29/24 History melatonin 3 mg tablet 3 mg feeding tube BEDTIME 10/30/24 10/30/24 10/28/24 History paroxetine HCl 10 mg/5 mL oral 10 mg feeding tube DAILY 10/30/24 10/30/24 10/29/24 History suspension Physical Exam Vital Signs: Vital Signs: Last Vital Signs Temp 98.6 F 10/31/24 10:59 Pulse 78 10/31/24 12:37 Resp 18 10/31/24 10:59 BP 122/63 10/31/24 12:37 Pulse Ox 99 10/31/24 10:59 O2 Del Method Nasal Cannula 10/31/24 10:59 O2 Flow Rate 2 10/31/24 10:59 BMI result Body Mass Index 27.6 Const: General: cooperative HEENT: Head: Yes normal to inspection Face and sinus: Yes normal facial exam Mouth: Normal oral and palatal mucosa present Teeth and gingiva: dentition normal Eyes: General: appearance normal, both eyes and all related structures Pupils: Equal, round and reactive pupils present Resp: Effort & Inspection: normal respiratory effort Cardio: Rate: regular rate Rhythm: regular rhythm GI: Palpation (GI): Soft to palpation and nontender : General: Yes no CVA tenderness Back/Spine/Pelvis: Back: no CVA tenderness Skin: General skin exam: no rashes or lesions noted Neuro: General: moves all extremities Cranial nerves: Yes Equal, round and reactive pupils present Extrem: General: Yes normal to inspection Psych: Other: difficulty being verbal Results Labs 10/31/24 05:41 10/31/24 05:41 Labs: Short CBC 10/31/24 Range/Units 05:41 WBC 22.8 H (4.8-10.8) X10*3/uL Hgb 11.8 L (14.0-18.0) g/dl Hct 35.9 L (42.0-52.0) % Plt Count 273 (160-400) X10*3/uL BMP 10/31/24 05:41 Sodium 142 Potassium 2.7 L* Chloride 110 H Carbon Dioxide 24 BUN 10 Creatinine 0.57 Calcium 8.1 L Liver Function 10/31/24 Range/Units 05:41 Total Bilirubin 0.7 (0.0-1.0) mg/dL AST 29 (5-37) U/L ALT 32 (0-40) U/L Alkaline Phosphatase 80 (39-117) U/L Albumin 3.1 L (3.5-5.0) g/dL Microbiology Microbiology Results: Microbiology 10/29/24 20:03 Urine Catheterized - Riley Catheter Urine Culture - Preliminary Gram negative seema 10/29/24 16:27 Blood - Venous Blood Culture - Final Coag negative Staphylococcus 10/29/24 16:27 Blood - Venous Blood Culture - Preliminary No growth after 24 hours. Assessment and Plan (1) Sepsis: Qualifiers: Sepsis acute organ dysfunction status: unspecified Sepsis type: sepsis due to unspecified organism Qualified Code(s): A41.9 - Sepsis, unspecified organism Status: Acute (2) C. difficile colitis: Status: Acute (3) Septic shock: Status: Acute Plan Can treat Cdiff with 250 qid Vancomycin. Stop IV Zosyn and Vancomycin if blood culture contamination organism. Taper to 125 qid for 10 days and then taper. Leukocytosis probably due to Cdiff.
--- NOTE | 2024-10-31 15:46 | P.PNIM_ITS ---
Subjective Subjective Date of Service: 10/31/24 Interval History: cdiff Review of Systems no new overnight event seems comfortable Review of Systems: Yes all other systems are reviewed and are negative Physical Exam 2 Vital Signs: Vital Signs: Last Vital Signs Temp 99.1 F 10/31/24 15:31 Pulse 69 10/31/24 15:31 Resp 18 10/31/24 15:31 BP 112/54 L 10/31/24 15:31 Pulse Ox 99 10/31/24 15:31 O2 Del Method Nasal Cannula 10/31/24 15:31 O2 Flow Rate 2 10/31/24 15:31 BMI result Body Mass Index 27.6 Appearance: awake ? cvs: rrr, [id number] . res: clear to auscultation ,no rhonchii or wheezing abd: no rebound or guarding ,nt, bs present. ext pulses present , no cyanosis. neuro: axo3 , nonfocal. Objective Data Active Medications Apixaban (Apixaban 5 Mg Tablet) 5 mg PO BID [facility] Last Admin: 10/31/24 09:40 Dose: 5 mg Documented By: BROOK Ascorbic Acid (Ascorbic Acid 500 Mg Tablet) 500 mg G-TUBE BID [facility] Last Admin: 10/31/24 10:36 Dose: 500 mg Documented By: BROOK Atorvastatin Calcium (Atorvastatin Calcium 40 Mg Tablet) 40 mg G-TUBE BEDTIME [facility] Last Admin: 10/30/24 21:00 Dose: 40 mg Documented By: TAMEKA Piperacillin Sod/Tazobactam (Sod 4.5 gm/ Sodium Chloride) 100 mls @ 200 mls/hr IV Q6H [facility] Last Infusion: 10/31/24 12:27 Dose: Infused Documented By: BROOK Metronidazole (Flagyl) 500 mg in 100 mls @ 100 mls/hr IV Q8H [facility] Last Infusion: 10/31/24 11:35 Dose: Infused Documented By: BROOK Lactated Ringer's (Lr) 1,000 mls @ 100 mls/hr IVCONT .Q10H [facility] Last Admin: 10/31/24 09:35 Dose: 100 mls/hr Documented By: BROOK Potassium Chloride (Potassium Chloride/H20) 10 meq in 100 mls @ 100 mls/hr IV Q1H [facility] Stop: 10/31/24 16:59 Melatonin (Melatonin 3 Mg Tablet) 3 mg G-TUBE BEDTIME [facility] Last Admin: 10/30/24 21:16 Dose: Not Given Documented By: TAMEKA Non-Admin Reason: patient is asleep Omeprazole (Omeprazole/Na Bicarb Oral Susp 20 Mg/10 Ml Ud Cup) 20 mg PO BID [facility] Last Admin: 10/31/24 11:56 Dose: 20 mg Documented By: BROOK Paroxetine HCl (Paroxetine Hcl 10 Mg Tablet) 10 mg PO DAILY [facility] Last Admin: 10/31/24 09:40 Dose: 10 mg Documented By: BROOK Sodium Chloride (0.9 % Sodium Chloride Flush 3 Ml Syringe) 3 ml IVFLUSH QSHIFT [facility] Last Admin: 10/31/24 07:50 Dose: 3 ml Documented By: BROOK Vancomycin HCl (Vancomycin Hcl Oral Solution 125 Mg/5 Ml Soln.Recon) 500 mg PO Q6H [facility] Last Admin: 10/31/24 13:06 Dose: 500 mg Documented By: BROOK Labs 10/31/24 05:41 10/31/24 05:41 Labs: Laboratory Results - last 24 hr 10/31/24 05:41 MCV 89.3 MCH 29.4 MCHC 32.9 RDW 14.6 Plt Count 273 MPV 10.1 Immature Gran % (Auto) Cancelled Neut % (Auto) Cancelled Lymph % (Auto) Cancelled [place] % (Auto) Cancelled Eos % (Auto) Cancelled Baso % (Auto) Cancelled Lymph # (Auto) Cancelled [place] # (Auto) Cancelled Eos # (Auto) Cancelled Baso # (Auto) Cancelled Abs Immat Gran (auto) Cancelled Absolute Neuts (auto) Cancelled Absolute Nucleated RBC 0.000 Nucleated RBC % (auto) 0.0 Neutrophils % (Manual) 79 H Band Neutrophils % 15 H Lymphocytes % (Manual) 3 L Monocytes % (Manual) 3 Abs Neuts (Manual) 21.4 H Lymphocytes # (Manual) 0.7 L Monocytes # (Manual) 0.7 Toxic Granulation PRESENT Dohle Bodies PRESENT Platelet Estimate NORMAL Plt Morphology Comment NORMAL RBC Morphology NORMAL Anion Gap 11 L Estim Creat Clear Calc 129.2 Estimated GFR > 60 Random Glucose 124 H Calcium 8.1 L Phosphorus 1.3 L Magnesium 2.0 Total Bilirubin 0.7 AST 29 ALT 32 Alkaline Phosphatase 80 Total Protein 4.7 L Albumin 3.1 L Microbiology Microbiology Results: Microbiology 10/29/24 20:03 Urine Culture - Preliminary Urine Catheterized - Riley Catheter Gram negative seema 10/29/24 16:27 Blood Culture - Final Blood - Venous Coag negative Staphylococcus 10/29/24 16:27 Blood Culture - Preliminary Blood - Venous No growth after 24 hours. Assessment and Plan (1) PEG (percutaneous endoscopic gastrostomy) status: Status: Acute (2) Sepsis: Status: Acute (3) C. difficile colitis: Status: Acute Plan 64-year-old male resident of the [facility] with underlying history of hypertension, hyperlipidemia, chronic constipation, recurrent C diff colitis who has a G-tube in the left abdomen, hemorrhagic stroke, history of PE currently on Eliquis.? Reportedly the patient was diagnosed with C diff colitis 3 days ago before admission and was to start fidaxomicin: Patient was in ICU to hypotension and sepsis-received IV antibiotics as well as Levophed: Subsequently transferred to the floor. sepsis/colitis c diff Continue vancomycin via PEG Blood culture coagulase-negative Staph-possible contamination, repeat blood culture pending ID evaluation pending possible UTI: Urine culture Gram-negative seema Continue IV Zosyn Blood culture coagulase-negative Staph likely contaminant ID evaluation pending for above Metabolic encephalopathy secondary to sepsis Pt somnolent, unresponsive to verbal stimuli, sternal rub - likely due to sepsis CT of the head ordered noting patient's stroke history - reviewed with hospitalist attending prior to ordering Per nursing at [facility] patient is interactive, opens eyes and will say yes or no but is otherwise nonverbal at baseline Antibiotics, fluid resuscitation, and antipyretics as well as ice packs ordered to help lower temp acute hypokalemia: Repleted via PEG and IV Monitor BMP. Skin excoriations related to CDIFF infeciton WOund care : 1. Turn and Reposition every 2 hours and as needed for patient comfort.? Use pillows or wedges to support off loading positions. 2. Off Load all bony prominences with use of pillows and heel boots if needed.? Apply Preventative foams where needed. ? 3. Monitor for incontinence and moisture control, use barrier creams when needed for prevention and treatment. 4. Provide adequate and supplemental nutrition.? 5. Order low air loss mattress. 6. When applicable maintain blood glucose levels per Providers order. Sacrum and Coccyx - Off Load Pressure with Q2 hr turns and use of pillows - Cleanse with PH balance spray or wipes, pat dry. ?Apply thin layer of Triad to wound bed - only pat and dab no scrub and rub when soiling occurs. Reapply thin layer PRN after each episode of incontinence. Hx of R thalmic Stroke Baseline mental status pt is interactive, yes/no, but mostly non verbal and is bedbound Hx of PE Pt is on elqiuis Ongoing need-C diff colitis/UTI, electrolytic abnormalities: Need IV antibiotics, cultures pending, Quality Stroke Does the patient have a stroke diagnosis?: No Reason for No Anti-thrombotic by Day Two: N/A - Med Ordered VTE Prior VTE?: No VTE Risk Level:: Medical - moderate - high VTE Device Contraindication: N/A - Device Ordered VTE Drug Contraindication: N/A - Med Ordered
--- NOTE | 2024-10-31 16:14 | PC.NURSE ---
Addendum entered by Leandra Arias RN 10/31/24 17:44: K rechecked at 5.2. Dr Velazco requested discontinuing IV potassium. Original Note: 8 bags of 10mEq potassium ordered by provider and 40mEq potassium via PEG tube. Clarified with provider to give all for K 2.7. Plan to transfuse 8 bags to replete K as well as PEG K. Provider requested running K slowly due to possible vein irritation.
[2024-10-31 17:05] LABS: Anion Gap 11 (12-20); Blood Urea Nitrogen 8 mg/dL (9-16); Calcium 7.8 mg/dL (8.4-10.2); Carbon Dioxide 21 mmol/L (22-29); Chloride 112 mmol/L (96-108); Creatinine Clr Calc Pharmacy 138.9; Estimated Glomerular Filt Rate > 60; Potassium 5.2 mmol/L (3.3-5.1); Sodium 139 mmol/L (135-145)
[2024-10-31 19:31] LABS: Anion Gap 11 (12-20); Blood Urea Nitrogen 9 mg/dL (9-16); Calcium 7.7 mg/dL (8.4-10.2); Carbon Dioxide 20 mmol/L (22-29); Chloride 113 mmol/L (96-108); Creatinine Clr Calc Pharmacy 136.3; Estimated Glomerular Filt Rate > 60; Potassium 4.1 mmol/L (3.3-5.1); Sodium 140 mmol/L (135-145)
[2024-11-01] VITALS (8 sets, daily range): BP systolic 103–181; BP diastolic 60–97; PULSE 79–178; RESP 16–20; TEMP 36.2–36.9; O2SAT 90–100; BMI 27.7
--- NOTE | 2024-11-01 | ECG_ITS ---
Test Reason : tachycardia Blood Pressure : */* mmHG Vent. Rate : 143 BPM Atrial Rate : * BPM P-R Int : * ms QRS Dur : 80 ms QT Int : 254 ms P-R-T Axes : * 22 243 degrees QTcB Int : 392 ms Poor data quality, interpretation may be adversely affected Atrial fibrillation with rapid ventricular response with premature ventricular or aberrantly conducted complexes ST depression inferior and anterolateral leads Abnormal ECG When compared with ECG of 29-Oct-2024 17:27, Atrial fibrillation has replaced Sinus rhythm Vent. rate has increased by 56 bpm Non-specific change in ST segment in Inferior leads ST now depressed in Lateral leads Nonspecific T wave abnormality now evident in Lateral leads Referred By: Adina Hernandez Electronically Signed By: SOLOMON SPEARS
[2024-11-01] MEDS: vancomycin HCL Oral Solution 125 MG/5 ML SOLN.RECON 500 MG PO ×4 (00:58→18:08)
[2024-11-01] MEDS: metroNIDAZOLE/NS 500 MG/100 ML PIGGYBACK 100 MG IV ×3 (02:29→17:37)
[2024-11-01] MEDS: 0.9 % Sodium Chloride Flush 3 ML SYRINGE IVFLUSH (09:20)
[2024-11-01] MEDS: Omeprazole/Na Bicarb Oral Susp 20 MG/10 ML UD Cup PO ×2 (09:21→20:30)
--- NOTE | 2024-11-01 14:46 | P.PNIM_ITS ---
Subjective Subjective Date of Service: 11/01/24 Interval History: Metabolic encephalopathy cdiff diarrhae Review of Systems no new overnight event no fevers Review of Systems: Yes all other systems are reviewed and are negative Physical Exam 2 Vital Signs: Vital Signs: Last Vital Signs Temp 97.6 F 11/01/24 11:38 Pulse 79 11/01/24 11:38 Resp 16 11/01/24 11:38 BP 150/77 H 11/01/24 11:38 Pulse Ox 99 11/01/24 11:38 O2 Del Method Oxymask 11/01/24 11:38 O2 Flow Rate 2 11/01/24 11:38 BMI result Body Mass Index 27.7 Appearance: awake ? cvs: rrr, [id number] . res: clear to auscultation ,no rhonchii or wheezing abd: no rebound or guarding ,nt, bs present. ext pulses present , no cyanosis. neuro: axo3 , nonfocal. Objective Data Active Medications Apixaban (Apixaban 5 Mg Tablet) 5 mg PO BID [facility] Last Admin: 11/01/24 09:21 Dose: 5 mg Documented By: BROOK Ascorbic Acid (Ascorbic Acid 500 Mg Tablet) 500 mg G-TUBE BID [facility] Last Admin: 11/01/24 09:21 Dose: 500 mg Documented By: BROOK Atorvastatin Calcium (Atorvastatin Calcium 40 Mg Tablet) 40 mg G-TUBE BEDTIME [facility] Last Admin: 10/31/24 20:47 Dose: 40 mg Documented By: JOSÉ MIGUEL Piperacillin Sod/Tazobactam (Sod 4.5 gm/ Sodium Chloride) 100 mls @ 200 mls/hr IV Q6H [facility] Last Infusion: 11/01/24 12:39 Dose: Infused Documented By: BROOK Metronidazole (Flagyl) 500 mg in 100 mls @ 100 mls/hr IV Q8H [facility] Last Infusion: 11/01/24 10:38 Dose: Infused Documented By: BROOK Melatonin (Melatonin 3 Mg Tablet) 3 mg G-TUBE BEDTIME [facility] Last Admin: 10/31/24 20:48 Dose: 3 mg Documented By: JOSÉ MIGUEL Omeprazole (Omeprazole/Na Bicarb Oral Susp 20 Mg/10 Ml Ud Cup) 20 mg PO BID [facility] Last Admin: 11/01/24 09:21 Dose: 20 mg Documented By: BROOK Paroxetine HCl (Paroxetine Hcl 10 Mg Tablet) 10 mg PO DAILY [facility] Last Admin: 11/01/24 09:21 Dose: 10 mg Documented By: BROOK Sodium Chloride (0.9 % Sodium Chloride Flush 3 Ml Syringe) 3 ml IVFLUSH QSHIFT [facility] Last Admin: 11/01/24 09:20 Dose: 3 ml Documented By: BROOK Vancomycin HCl (Vancomycin Hcl Oral Solution 125 Mg/5 Ml Soln.Recon) 500 mg PO Q6H [facility] Last Admin: 11/01/24 12:09 Dose: 500 mg Documented By: BROOK Labs 10/31/24 05:41 10/31/24 19:05 Labs: Laboratory Results - last 24 hr 10/31/24 10/31/24 16:42 19:05 Anion Gap 11 L 11 L Estim Creat Clear Calc 138.9 136.3 Estimated GFR > 60 > 60 Random Glucose 158 H 160 H Calcium 7.8 L 7.7 L Microbiology Microbiology Results: Microbiology 10/29/24 20:03 Urine Culture - Preliminary Urine Catheterized - Riley Catheter Escherichia coli 10/29/24 16:27 Blood Culture - Preliminary Blood - Venous No growth after 48 hours. 10/30/24 15:32 Blood Culture - Preliminary Blood - Venous No growth after 24 hours. 10/30/24 15:32 Blood Culture - Preliminary Blood - Venous No growth after 24 hours. 10/29/24 16:27 Blood Culture - Final Blood - Venous Coag negative Staphylococcus Assessment and Plan (1) PEG (percutaneous endoscopic gastrostomy) status: Status: Acute (2) Sepsis: Status: Acute (3) C. difficile colitis: Status: Acute Plan 64-year-old male resident of the [facility] with underlying history of hypertension, hyperlipidemia, chronic constipation, recurrent C diff colitis who has a G-tube in the left abdomen, hemorrhagic stroke, history of PE currently on Eliquis.? Reportedly the patient was diagnosed with C diff colitis 3 days ago before admission and was to start fidaxomicin: Patient was in ICU to hypotension and sepsis-received IV antibiotics as well as Levophed: Subsequently transferred to the floor. sepsis/colitis c diff Continue vancomycin via PEG Blood culture coagulase-negative Staph-possible contamination, repeat blood culture pending ID evaluation pending possible UTI: esbl Continue IV meropenem Blood culture coagulase-negative Staph likely contaminant, repeat blood culture negative@24hrs ID evaluation pending for above Metabolic encephalopathy secondary to sepsis Pt somnolent, unresponsive to verbal stimuli, sternal rub - likely due to sepsis CT of the head ordered noting patient's stroke history - reviewed with hospitalist attending prior to ordering Per nursing [facility] patient is interactive, opens eyes and will say yes or no but is otherwise nonverbal at baseline Antibiotics, fluid resuscitation, and antipyretics as well as ice packs ordered to help lower temp acute hypokalemia: Repleted via PEG and IV Monitor BMP. Skin excoriations related to CDIFF infeciton WOund care : 1. Turn and Reposition every 2 hours and as needed for patient comfort.? Use pillows or wedges to support off loading positions. 2. Off Load all bony prominences with use of pillows and heel boots if needed.? Apply Preventative foams where needed. ? 3. Monitor for incontinence and moisture control, use barrier creams when needed for prevention and treatment. 4. Provide adequate and supplemental nutrition.? 5. Order low air loss mattress. 6. When applicable maintain blood glucose levels per Providers order. Sacrum and Coccyx - Off Load Pressure with Q2 hr turns and use of pillows - Cleanse with PH balance spray or wipes, pat dry. ?Apply thin layer of Triad to wound bed - only pat and dab no scrub and rub when soiling occurs. Reapply thin layer PRN after each episode of incontinence. Hx of R thalmic Stroke Baseline mental status pt is interactive, yes/no, but mostly non verbal and is bedbound Hx of PE Pt is on elqiuis Ongoing need-C diff colitis/UTI, electrolytic abnormalities: Need IV antibiotics, cultures pending, Quality Stroke Does the patient have a stroke diagnosis?: No Reason for No Anti-thrombotic by Day Two: N/A - Med Ordered VTE Prior VTE?: No VTE Risk Level:: Medical - moderate - high VTE Device Contraindication: N/A - Device Ordered VTE Drug Contraindication: N/A - Med Ordered
--- NOTE | 2024-11-01 18:23 | PC.NURSE ---
Provider notified at 1530 of of BP 179/97. Provider added patient's home dose of atenolol to start tomorrow.
--- NOTE | 2024-11-01 22:01 | PM.EVENT ---
Event Note Date of Service: 11/01/24 Event Note: Nurse reported tachycardia. Pulse irregularly irregular. EKG with AFib with RVR, ?new onset. Blood pressure okay. Will try IV Lopressor. Obtaining TSH and echo. Consulting Cardiology. Time Spent With Patient Time: Total time managing care of this patient today ____ minutes.
[2024-11-02] VITALS (8 sets, daily range): BP systolic 115–151; BP diastolic 58–71; PULSE 62–79; RESP 16–22; TEMP 36.1–36.9; O2SAT 94–98; BMI 27.9
[2024-11-02] MEDS: 0.9 % Sodium Chloride Flush 3 ML SYRINGE IVFLUSH ×4 (00:37→20:47)
[2024-11-02] MEDS: metroNIDAZOLE/NS 500 MG/100 ML PIGGYBACK 100 MG IV (01:58)
[2024-11-02] MEDS: vancomycin HCL Oral Solution 125 MG/5 ML SOLN.RECON 500 MG PO ×4 (01:58→22:57)
--- NOTE | 2024-11-02 03:52 | PC.NURSE ---
CARE ASSUMED 7PM..PATIENT AWAKE SPONTANEOUSLY..SPEAKS FEW WORDS INTERMITTANTLY BUT INCONSISTANTLY..DENIED PAIN..JEVITY 70 CC/HR VIA PEG..MONITOR NSR AT SHIFT CHANGE..APPROX 9:30PM CONVERTED TO ATRIAL FIB RVR HR 160'S-180'S...BP STABLE..SKIN WARM/DRY..NO SOB..DR MCKEON UPDATED ..LOPRESSOR 5 MG IVP X1 GIVEN WITH HR REMAINING 140'S-150'S...BP 107/70..DR MCKEON PRESENT ON UNIT..DIGOXIN 0.5MG IV X1 ORDERED AND GIVEN APPROX 22:10....INTERMITTANT NSR HR 80'S ALTERNATING WITH ATRIAL FIB HR 120'S-130'S...CONVERTED TO NSR HR 70'S-80'S BY 11PM.. AWARE...PREVIOUSLY ORDERED ON DAY SHIFT TO START ATENOLOL PO QD 11/02...RESTFUL..NO DISTRESS..REMAINS NSR OF 4AM..
--- NOTE | 2024-11-02 07:00 | CA_ITS ---
Transthoracic Echocardiogram Patient (Last, First, Middle): Gilmar Mcpherson, Gender: Male Date of : 1960 Age: 64 Procedure Date: 11/02/2024 Procedure Type: Transthoracic Echocardiogram Location: [facility] [place] Height: 170.18 cm Weight: 80.74 kg BSA: 1.92 m2 Heart Rate: 76 bpm BP: 115 / 67 mmHg Room Maid: SB Referring MD: Adina Hernandez MD Symptoms: afib Study Quality: Technically Difficult ECG Rhythm: Sinus Conclusions: - The left ventricular systolic function is normal. The calculated ejection fraction is 57% by biplane method. - Oktp-cc-ivclibgo asymmetric septal hypertrophy. - Moderately increased right ventricular cavity size. - No obvious valvular pathology seen on this study. Findings Procedure Information Contrast agent, definity, is being given per protocol without apparent complications. Left Ventricle Normal left ventricular cavity size. The left ventricular systolic function is normal. The calculated ejection fraction is 57% by biplane method. There is no evidence of regional wall motion abnormalities. Diastolic function is normal for age. Ywgj-nx-ebgbrzye asymmetric septal hypertrophy. Right Ventricle Moderately increased right ventricular cavity size. There is normal right ventricular systolic function. Atria Both atria are normal in size. Aortic Valve There is a normal trileaflet aortic valve. There is mild calcification of the aortic valve. There is no aortic valve stenosis. There is trace (trivial) aortic valve regurgitation. Mitral Valve The mitral valve appears normal. There is mild mitral valve regurgitation. There is no mitral valve stenosis. Pulmonic Valve The pulmonic valve is likely normal. Tricuspid Valve There is no tricuspid valve regurgitation. Tricuspid regurgitation envelope is inadequate for calculation of right ventricular systolic pressure. Great Vessels The asc aorta is normal in size. Venous The inferior vena cava was not well visualized. Pericardium/Pleural There is no evidence of pericardial effusion. Prior Study Comparison No prior study available for comparison. Recommendations, Care & Conclusions No obvious valvular pathology seen on this study. Measurements 2D Linear Measurements IVSd: 0.97 0.6-0.9/0.6-1.0 cm LVIDd: 5.28 3.9-5.3/4.2-5.9 cm LVIDd Index: 2.75 2.4-3.2/2.2-3.1 cm/m2 LVIDs: 3.57 2.0-3.6 cm LVPWd: 0.88 0.7-1.1 cm LA Diam: 4.00 2.7-3.8/3.0-4.0 cm LAIDs Index: 2.08 1.5-2.3 cm/m2 LV Mass: 223.09 67-162/88-224 g LV Mass Index: 116.19 43-95/49-115 g/m2 LVOT Diam: 2.20 3.0+(-)1.3 cm 2D Systolic Function EF 4C: 54.30 >55% EF 2C: 59.90 >55% EF BiP: 56.80 >55% Mitral Valve MV Pk E: 0.61 MV PK A: 0.53 MV Decel Time: 254.00 E/A: 1.20 E'Lateral: 7.51 E'Medial: 5.22 E/E' Med: 11.60 E/E' Lat: 8.10 PHT: 74.00 MVA PHT: 2.97 Decel [place]: 2.40 Aortic Valve AoV Pk Andrzej: 1.65 AoV Mn Andrzej: 1.08 AoV VTI: 0.34 AoV Pk Grad: 11.00 Aov Mn Grad: 6.00 CHRISTIN Cont.VTI: 1.50 LVOT LVOT Pk Andrzej: 0.71 LVOT Mn Andrzej: 0.46 LVOT VTI: 0.14 LVOT Pk Grad: 2.00 LVOT Mn Grad: 1.00 LVOT Diam: 2.20 LVOT Area: 3.80 Diastolic Function MV Pk E: 0.61 MV Pk A: 0.53 E/A: 1.20 E'Medial: 5.22 E/E' Med: 11.60 E' Laterial: 7.51 E/E' Lat: 8.10 Right Ventricle TAPSE (mm): 20.90 TVS' Andrzej: 14.00 Great Vessels Aorta Sinus of Valsalva: 3.70 2.0-3.5 cm Ao Asc: 3.70 2.1-3.4 cm Pulmonary Valve PV Pk Andrzej: 0.80 Peak PV Grad: 3.00 Updated in Other Vendor System with Status of Final Tank Moore MD electronically signed on 11/02/2024 3:36:21 PM with status of Final
[2024-11-02 07:03] LABS: Hematocrit 36.3 % (42.0-52.0); Hemoglobin 12.0 g/dl (14.0-18.0); Mean Corpuscular HGB Conc 33.1 g/dl (31.0-36.0); Mean Corpuscular Hemoglobin 29.3 pg (27.0-33.0); Mean Corpuscular Volume 88.8 fL (80.0-98.0); NRBC Abs Auto 0.000 X10*3/uL (0.0-0.012); NRBC Pct Auto 0.0 /100WBC (0.0-0.2); Platelet Count 313 X10*3/uL (160-400); Red Blood Count 4.09 X10*6/uL (4.60-5.80); White Blood Count 10.4 X10*3/uL (4.8-10.8)
[2024-11-02 07:34] LABS: Blood Urea Nitrogen 7 mg/dL (9-16); Calcium 8.0 mg/dL (8.4-10.2); Creatinine Clr Calc Pharmacy 160.8; Estimated Glomerular Filt Rate > 60
[2024-11-02 07:50] LABS: Anion Gap 9 (12-20); Carbon Dioxide 28 mmol/L (22-29); Chloride 108 mmol/L (96-108); Potassium 3.2 mmol/L (3.3-5.1); Sodium 142 mmol/L (135-145); Thyroid Stimulating Hormone 1.02 uIU/mL (0.32-4.0)
[2024-11-02] MEDS: Omeprazole/Na Bicarb Oral Susp 20 MG/10 ML UD Cup PO ×2 (08:15→20:47)
--- NOTE | 2024-11-02 10:11 | P.CONCA_ITS ---
History of Present Illness History of Present Illness Date of Service: 11/02/24 Chief complaint: acute septic shock UTI Narrative: We are asked to see the patient consultation because of atrial fibrillation. Patient unable to give any history because of mental status. 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 Recently in the ICU for hypotension/sepsis. He was on IV antibiotics as well as Levophed. Then transferred to floor. In this context, he had a short run of atrial fibrillation lasting for about an hour and half last night. Hence we are consulted. Currently, he is back in normal sinus rhythm. Unable to get any history from the patient himself. Otherwise, it seems that he is on beta-blockers at baseline-atenolol but does not appear that he actually received it last couple of days. He is on Eliquis for history of pulmonary embolism. Review of Systems 2 Review of Systems: Unable to obtain because of mental status. [facility] Past Medical History Medical History Constipation Chronic GERD Hypertension Hx pulmonary embolism Hypoxia C. difficile diarrhea Family History Pertinent family history: Unable to obtain Surgical History Surgical History PEG (percutaneous endoscopic gastrostomy) status Social History Social History Household Members: Other Housing: Intermediate Housing Other:: [facility] Unable to assess alcohol history related to: Unknown Patient Tobacco Use Status: Former Tobacco user Tobacco use type: Cigarette Years Smoked: 20 Smoked in Last 30 Days: No Currently Displaying Signs/Symptoms of Drug Intoxication Withdrawal: No Advance Directives: No Advance Directives Information Provided: No service: Yes Travel History Ebola Risk: Travel/Contact With Anyone From Affected Area/s: No Has Patient Experienced Ebola Symptoms: No Meds Allergies Allergy/AdvReac Type Severity Reaction Status Date / Time No Known Allergies Allergy Verified 10/29/24 16:21 Active Medications: Current Medications Apixaban (Apixaban 5 Mg Tablet) 5 mg PO BID [facility] Last Admin: 11/02/24 08:14 Dose: 5 mg Ascorbic Acid (Ascorbic Acid 500 Mg Tablet) 500 mg G-TUBE BID [facility] Last Admin: 11/02/24 08:15 Dose: 500 mg Atenolol (Atenolol 50 Mg Tablet) 50 mg G-TUBE DAILY [facility]; Protocol Last Admin: 11/02/24 08:15 Dose: 50 mg Atorvastatin Calcium (Atorvastatin Calcium 40 Mg Tablet) 40 mg G-TUBE BEDTIME [facility] Last Admin: 11/01/24 20:30 Dose: 40 mg Melatonin (Melatonin 3 Mg Tablet) 3 mg G-TUBE BEDTIME [facility] Last Admin: 11/01/24 20:30 Dose: 3 mg Metronidazole (Metronidazole 500 Mg Tablet) 500 mg G-TUBE Q8H [facility] Last Admin: 11/02/24 08:14 Dose: 500 mg Omeprazole (Omeprazole/Na Bicarb Oral Susp 20 Mg/10 Ml Ud Cup) 20 mg PO BID [facility] Last Admin: 11/02/24 08:15 Dose: 20 mg Paroxetine HCl (Paroxetine Hcl 10 Mg Tablet) 10 mg PO DAILY [facility] Last Admin: 11/02/24 08:14 Dose: 10 mg Sodium Chloride (0.9 % Sodium Chloride Flush 3 Ml Syringe) 3 ml IVFLUSH QSHIFT [facility] Last Admin: 11/02/24 08:15 Dose: 3 ml Vancomycin HCl (Vancomycin Hcl Oral Solution 125 Mg/5 Ml Soln.Recon) 500 mg PO Q6H [facility] Last Admin: 11/02/24 06:24 Dose: 500 mg Home Medications ?Medication ?Instructions ?Recorded ?Confirmed ?Last Taken ?Type acetaminophen 650 mg/20.3 mL oral 640 mg feeding tube Q6H PRN Pain 09/30/24 10/30/24 10/14/24 History suspension apixaban 5 mg tablet 5 mg feeding tube BID 10/30/24 10/29/24 History atenolol 50 mg tablet 50 mg feeding tube DAILY 03/1610/30/24 10/29/24 History atorvastatin 40 mg tablet 40 mg feeding tube BEDTIME 0 09/30/24 10/30/24 10/28/24 History bisacodyl 10 mg rectal suppository 10 mg UT DAILY PRN Constipation 09/30/24 10/30/24 Unknown History calcium polycarbophil 625 mg 625 mg feeding tube DAILY 09/30/24 10/30/24 08/18/24 History tablet (Fiber (calcium polycarbophil)) lidocaine 4 % topical patch 1 patch topical DAILY PRN Pain 09/30/24 10/30/24 10/29/24 History (Lidocaine Pain Relief) omeprazole magnesium 10 mg oral 40 mg feeding tube ALAN LY@0630 09/30/24 10/30/24 10/29/24 History suspension,delayed release Lactobacillus acidoph-L.bulgaricus 1 tab feeding tube TID 10/30/24 10/30/24 10/29/24 History 1 million cell tablet acetaminophen 650 mg rectal 650 mg UT DAILY PRN Fever 10/30/24 10/30/24 Unknown History suppository acetaminophen 650 mg/20.3 mL oral 640 mg feeding tube BID General 10/30/24 10/30/24 Unknown History suspension Discomfort ascorbic acid (vitamin C) 500 mg 500 mg feeding tube B ID 10/30/24 10/30/24 09/21/24 History tablet (Vitamin C) fidaxomicin 200 mg tablet (Dificid) 200 mg feeding tub e BID 10/30/24 10/30/24 10/29/24 History melatonin 3 mg tablet 3 mg feeding tube BEDTIME 10/30/24 10/28/24 History paroxetine HCl 10 mg/5 mL oral 10 mg feeding tube SHANNON Y 10/30/24 10/30/24 10/29/24 History suspension Physical Exam 2 Vital Signs: Vital Signs: Last Vital Signs Temp 97.6 F 11/02/24 07:33 Pulse 79 11/02/24 07:33 Resp 22 H 11/02/24 07:33 BP 122/71 11/02/24 07:33 Pulse Ox 98 11/02/24 07:33 O2 Del Method Oxymask 11/02/24 07:33 O2 Flow Rate 4 11/02/24 07:33 BMI result Body Mass Index 27.9 Const: General: comfortable and no acute distress O rientation/consciousness: No patient oriented x3 HEENT: Other: Unremarkable Head: Yes normal to inspection Neck: Neck: Yes normal visual inspection Chest: Chest palpation & inspection: normal inspection of the chest Resp: Auscultation: clear to auscultation bilaterally Cardio: Palpation: normal PMI Heart sounds: S1 normal heart sound present, S2 normal heart sound present, no gallops, no murmurs and no rubs GI: Palpation (GI): Soft to palpation Back/Spine/Pelvis: Other: unremarkable Skin: General skin exam: no rashes or lesions noted Neuro: General: No patient oriented x3 Extrem: General: Yes normal to inspection Psych: Mental Status: mental status grossly abnormal Objective Labs and Meds 11/02/24 06:19 11/02/24 06:19 Lab results: Laboratory Results - last 24 hr 11/02/24 06:19 WBC 10.4 RBC 4.09 L Hgb 12.0 L Hct 36.3 L MCV 88.8 MCH 29.3 MCHC 33.1 RDW 14.8 Plt Count 313 MPV 9.8 Absolute Nucleated RBC 0.000 Nucleated RBC % (auto) 0.0 Sodium 142 Potassium 3.2 L D Chloride 108 Carbon Dioxide 28 Anion Gap 9 L BUN 7 L Creatinine 0.46 L Estim Creat Clear Calc 160.8 Estimated GFR > 60 Random Glucose 144 H Calcium 8.0 L TSH 1.02 ECG Interpretation: EKG from last night with atrial fibrillation at a rate of 143/Min with inferior and anterolateral ST depression. In the EKG prior to that from 29 of October, underlying sinus rhythm at 87/Min. Nonspecific ST-T changes. Assessment and Plan (1) Atrial fibrillation with rapid ventricular response: Status: Acute Plan Atrial fibrillation with rapid ventricular response in the setting of recent ICU stay/medical illness/holding beta-blockers. Episode was fairly brief and he is already back in sinus rhythm. Continue the atenolol without interruption. He is already on Eliquis for history of pulmonary embolism. Echo has been ordered and we will review once completed. Discussed with Dr. Velazco. Procedures Date of Service Date of Service: 11/02/24
--- NOTE | 2024-11-02 10:39 | P.CDIM_ITS ---
PROVIDER RESPONSE TEXT: To clarify, the appropriate diagnosis supported by the clinical indicators: Pressure Injury sacrum/coccyx Stage 2 QUERY TEXT: PHYSICIAN'S DOCUMENTATION REQUEST Date of Query: 11/02/2024 09:46 AM EDT Patient Name: Gilmar Rodgers Admit Date: 10/30/2024 Dear Genia Velazco MD, A review of the medical record indicates additional documentation may be needed. Please review below and update the documentation accordingly. Clinical Indicators: Wound care consultation notes 10/30/24 - Pressure injuries Stage 2, sacrum/coccyx - Present on Admission. Coccyx is red appears clean, sacrum appears may be resolving dried dark red wound bed. Triad to protect from friction and moisture. Reapply think layer PRN after each episode of incontinence. Based on the above, could you please provide further information regarding the ulcer/wound/injury: Pressure Injury sacrum/coccyx Stage 2 Traumatic wound Please specify the location and laterality of the ulcer/wound Non-healing surgical wound Please specify the location and laterality of the ulcer/wound Other (explain) Clinically unable to determine (explain) Thank you, Caro Thompson, CCS, CDIS Use of terms such as suspected, likely, concern for, or probable (associated with a specific diagnosis that is being evaluated, monitored, or treated as if it exists) are acceptable and can be coded in the inpatient setting, when documented at the time of discharge. Please use your independent medical judgment in providing your response. THIS QUERY IS PART OF THE PERMANENT MEDICAL RECORD
--- NOTE | 2024-11-02 11:59 | MHC.CLN ---
F/U PT WITH INCREASED NUTRITION NEEDS R/T PRESSURE INJURY REVIEWED LABS PT RECEIVING JEVITY 1.0 AT MAX GOAL RATE 70 ML/HOUR PROVIDES 1780 KCALS (24.3 KCALS/KG), 74 G PROTEIN (1 G/KG), 2123 TOTAL ML FREE WATER FROM FORMULA AND FLUSHES (29ML/KG) RECOMMEND ADDING PROSOURCE 30ML X1 PER DAY TO PROVIDE AN ADDITIONAL 60KCALS, 15G PROTEN MONITOR TOLERANCE AND LYTES
--- NOTE | 2024-11-02 14:23 | HO.PM.IMPN ---
Subjective Subjective Date of Service: 11/03/24 Interval History: hypoxia Review of Systems awake,seems simialr Physical Exam Vital Signs: Vital Signs: Last Vital Signs Temp 97.6 F 11/02/24 11:42 Pulse 62 11/02/24 11:42 Resp 20 11/02/24 11:42 BP 140/65 H 11/02/24 11:42 Pulse Ox 95 11/02/24 11:42 O2 Del Method Oxymask 11/02/24 11:42 O2 Flow Rate 1 11/02/24 11:42 BMI result Body Mass Index 27.9 Appearance: awake ? cvs: rrr, [id number] . res: air entry abd: no rebound or guarding ,nt, bs present. ext pulses present , no cyanosis. neuro: awake Objective Data Active Medications Apixaban (Apixaban 5 Mg Tablet) 5 mg PO BID [facility] Last Admin: 11/02/24 08:14 Dose: 5 mg Documented By: ISRI Ascorbic Acid (Ascorbic Acid 500 Mg Tablet) 500 mg G-TUBE BID [facility] Last Admin: 11/02/24 08:15 Dose: 500 mg Documented By: SIRI Atenolol (Atenolol 50 Mg Tablet) 50 mg G-TUBE DAILY [facility]; Protocol Last Admin: 11/02/24 08:15 Dose: 50 mg Documented By: SIRI Atorvastatin Calcium (Atorvastatin Calcium 40 Mg Tablet) 40 mg G-TUBE BEDTIME [facility] Last Admin: 11/01/24 20:30 Dose: 40 mg Documented By: ZAHIDA Melatonin (Melatonin 3 Mg Tablet) 3 mg G-TUBE BEDTIME [facility] Last Admin: 11/01/24 20:30 Dose: 3 mg Documented By: ZAHIDA Metronidazole (Metronidazole 500 Mg Tablet) 500 mg G-TUBE Q8H [facility] Last Admin: 11/02/24 08:14 Dose: 500 mg Documented By: SIRI Omeprazole (Omeprazole/Na Bicarb Oral Susp 20 Mg/10 Ml Ud Cup) 20 mg PO BID [facility] Last Admin: 11/02/24 08:15 Dose: 20 mg Documented By: SIRI Paroxetine HCl (Paroxetine Hcl 10 Mg Tablet) 10 mg PO DAILY [facility] Last Admin: 11/02/24 08:14 Dose: 10 mg Documented By: SIRI Sodium Chloride (0.9 % Sodium Chloride Flush 3 Ml Syringe) 3 ml IVFLUSH QSHIFT [facility] Last Admin: 11/02/24 13:52 Dose: 3 ml Documented By: JAXON Vancomycin HCl (Vancomycin Hcl Oral Solution 125 Mg/5 Ml Soln.Laine) 500 mg PO Q6H [facility] Last Admin: 11/02/24 13:52 Dose: 500 mg Documented By: JAXON Labs 11/02/24 06:19 11/03/24 08:02 Labs: Laboratory Results - last 24 hr 11/02/24 06:19 MCV 88.8 MCH 29.3 MCHC 33.1 RDW 14.8 Plt Count 313 MPV 9.8 Absolute Nucleated RBC 0.000 Nucleated RBC % (auto) 0.0 Anion Gap 9 L Estim Creat Clear Calc 160.8 Estimated GFR > 60 Random Glucose 144 H Calcium 8.0 L TSH 1.02 Microbiology Microbiology Results: Microbiology 10/29/24 20:03 Urine Culture - Final Urine Catheterized - Riley Catheter Escherichia coli 10/30/24 15:32 Blood Culture - Preliminary Blood - Venous No growth after 48 hours. 10/30/24 15:32 Blood Culture - Preliminary Blood - Venous No growth after 48 hours. Assessment and Plan (1) C. difficile colitis: Status: Acute Plan 64-year-old male resident of the [place]s home with underlying history of hypertension, hyperlipidemia, chronic constipation, recurrent C diff colitis who has a G-tube in the left abdomen, hemorrhagic stroke, history of PE currently on Eliquis.? Reportedly the patient was diagnosed with C diff colitis 3 days ago before admission and was to start fidaxomicin: Patient was in ICU to hypotension and sepsis-received IV antibiotics as well as Levophed: Subsequently transferred to the floor. overnight afib rvr: new tsh 1.02 echo plan: continue atenolol,eliquis moniter on tele cardiology eval mild hypokalemia :repleted moniter electrolytes closely. ? unclear if hypoxic : oxygen taper to 1 liter sats 95-96%, wean further . unable to do incentive kevin nebuliser prn ,chest physiotherpay ,taper oxygen chest ct -Occluded left lower lobe lobar and bilateral lobe segmental and subsegmental bronchi could be due to mucus impactions. Follow-up recommended to exclude underlying left lower lobe endobronchial neoplasm. sepsis/colitis c diff Continue vancomycin via PEG. urine culture esbl-possible colonisation Blood culture coagulase-negative Staph likely contaminant, repeat blood culture negative@48hrs above is reviewed with iD- as above . consider removing rectal tube since rectal output improving Metabolic encephalopathy secondary to sepsis awake ,follows few commands ,near nonverbal CT of the head ordered noting patient's stroke history -No acute intracranial findings.Possible normal pressure hydrocephalus in the proper clinical setting. [facility] nursing [facility] patient is interactive, opens eyes and will say yes or no but is otherwise nonverbal at baseline seems improving near baseline acute hypokalemia: Repleted via PEG and IV Monitor BMP. Skin excoriations related to CDIFF infeciton WOund care : 1. Turn and Reposition every 2 hours and as needed for patient comfort.? Use pillows or wedges to support off loading positions. 2. Off Load all bony prominences with use of pillows and heel boots if needed.? Apply Preventative foams where needed. ? 3. Monitor for incontinence and moisture control, use barrier creams when needed for prevention and treatment. 4. Provide adequate and supplemental nutrition.? 5. Order low air loss mattress. 6. When applicable maintain blood glucose levels per Providers order. Sacrum and Coccyx - Off Load Pressure with Q2 hr turns and use of pillows - Cleanse with PH balance spray or wipes, pat dry. ?Apply thin layer of Triad to wound bed - only pat and dab no scrub and rub when soiling occurs. Reapply thin layer PRN after each episode of incontinence. Hx of R thalmic Stroke Baseline mental status pt is interactive, yes/no, but mostly non verbal and is bedbound Hx of PE Pt is on elqiuis Ongoing need-C diff colitis/UTI, electrolytic abnormalities: Need IV antibiotics, cultures pending Quality Stroke Does the patient have a stroke diagnosis?: No Reason for No Anti-thrombotic by Day Two: N/A - Med Ordered VTE Prior VTE?: No VTE Risk Level:: Medical - moderate - high VTE Device Contraindication: N/A - Device Ordered VTE Drug Contraindication: N/A - Med Ordered
--- NOTE | 2024-11-02 15:36 | MHC.CM.PN ---
PER MD ROUNDS, PT NOT READY TO DC, GETTING IV ABX AND CULTURES PENDING DCP: RETURN TO [facility] VIA BLS
[2024-11-02] MEDS: Potassium Chloride Packet 20 MEQ PACKET G-TUBE (15:44)
[2024-11-02] MEDS: Acetylcysteine 10 % 400 MG/4 ML VIAL INHALE (15:53)
--- NOTE | 2024-11-02 16:10 | HO.WOUND ---
Wound Consult: Follow up 64yr old?male admitted [place] [facility] [place]30/24- See progress notes and H&P for detailed history.? Wound consult follow up for sacral area.? No new topical recommendations needed - continue with Triad barrier cream Coccyx and Sacrum 10/30/24 11/02/24 11/02/24 Etiology: ??Stage 2 Pressure Injures Present on Admission Wound Bed: coccyx is red appears clean Drainage / Odor: unknown Edges: ? red moist irritated tissue Alethea wound: significant MASD and friction noted as evidence by desquamation Goals of Treatment: ? Triad to protect from friction and Moisture - Foam dressing was in use and not barrier cream discussed with staff to use barrier cream and not foam dressing at this time. Recommendations: 1. Turn and Reposition every 2 hours and as needed for patient comfort.? Use pillows or wedges to support off loading positions. 2. Off Load all bony prominences with use of pillows and heel boots if needed.? Apply Preventative foams where needed. ? 3. Monitor for incontinence and moisture control, use barrier creams when needed for prevention and treatment. 4. Provide adequate and supplemental nutrition.? 5. Order low air loss mattress. 6. When applicable maintain blood glucose levels per Providers order. Sacrum and Coccyx - Off Load Pressure with Q2 hr turns and use of pillows - Cleanse with PH balance spray or wipes, pat dry. ?Apply thin layer of Triad to wound bed - only pat and dab no scrub and rub when soiling occurs. Reapply thin layer PRN after each episode of incontinence. Re-consult wound care Nurse for wound deterioration or wound changes.
--- NOTE | 2024-11-02 16:42 | PM.CNPUL ---
History of Present Illness History of Present Illness Consult date: 11/02/24 Chief complaint: Hypoxia, abnormal CT chest Narrative: 64-year-old gentleman with underlying history of pulmonary emboli on Eliquis, dysphagia status post PEG tube after hemorrhagic stroke admitted on 10/29/2024 with sepsis secondary to C diff. Hospital course further complicated by recurrent hypoxemia with CT chest showing stigmata of chronic aspiration in laying down position. Review of Systems Review of Systems: Yes Unobtainable due to mental condition PMFSH Past Medical History Medical History Constipation Chronic GERD Hypertension Hx pulmonary embolism Hypoxia C. 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 Unable to assess alcohol history related to: Unknown Patient Tobacco Use Status: Former Tobacco user Tobacco use type: Cigarette Years Smoked: 20 Smoked in Last 30 Days: No Currently Displaying Signs/Symptoms of Drug Intoxication Withdrawal: No Advance Directives: No Advance Directives Information Provided: No service: Yes Travel History Ebola Risk: Travel/Contact With Anyone From Affected Area/s: No Has Patient Experienced Ebola Symptoms: No Meds Allergies Allergy/AdvReac Type Severity Reaction Status Date / Time No Known Allergies Allergy Verified 10/29/24 16:21 Active Medications: Current Medications Acetylcysteine (Acetylcysteine 10 % 400 Mg/4 Ml Vial) 400 mg INHALE RQ6H [facility] Last Admin: 11/02/24 15:53 Dose: 400 mg Apixaban (Apixaban 5 Mg Tablet) 5 mg PO BID [facility] Last Admin: 11/02/24 08:14 Dose: 5 mg Ascorbic Acid (Ascorbic Acid 500 Mg Tablet) 500 mg G-TUBE BID [facility] Last Admin: 11/02/24 08:15 Dose: 500 mg Atenolol (Atenolol 50 Mg Tablet) 50 mg G-TUBE DAILY [facility]; Protocol Last Admin: 11/02/24 08:15 Dose: 50 mg Atorvastatin Calcium (Atorvastatin Calcium 40 Mg Tablet) 40 mg G-TUBE BEDTIME [facility] Last Admin: 11/01/24 20:30 Dose: 40 mg Levalbuterol HCl (Levalbuterol Hcl 1.25 Mg/3 Ml Vial.Neb) 1.25 mg INHALE RQ6H [facility] Last Admin: 11/02/24 15:53 Dose: 1.25 mg Melatonin (Melatonin 3 Mg Tablet) 3 mg G-TUBE BEDTIME [facility] Last Admin: 11/01/24 20:30 Dose: 3 mg Metronidazole (Metronidazole 500 Mg Tablet) 500 mg G-TUBE Q8H [facility] Last Admin: 11/02/24 08:14 Dose: 500 mg Nystatin (Nystatin Powder 15 Gm Bottle) 1 appl TOPICAL BID [facility]; Protocol Omeprazole (Omeprazole/Na Bicarb Oral Susp 20 Mg/10 Ml Ud Cup) 20 mg PO BID [facility] Last Admin: 11/02/24 08:15 Dose: 20 mg Paroxetine HCl (Paroxetine Hcl 10 Mg Tablet) 10 mg PO DAILY [facility] Last Admin: 11/02/24 08:14 Dose: 10 mg Sodium Chloride (0.9 % Sodium Chloride Flush 3 Ml Syringe) 3 ml IVFLUSH QSHIFT [facility] Last Admin: 11/02/24 13:52 Dose: 3 ml Vancomycin HCl (Vancomycin Hcl Oral Solution 125 Mg/5 Ml Soln.Recon) 500 mg PO Q6H [facility] Last Admin: 11/02/24 13:52 Dose: 500 mg Home Medications ?Medication ?Instructions ?Recorded ?Confirmed ?Last Taken ?Type acetaminophen 650 mg/20.3 mL oral 640 mg feeding tube Q6H PRN Pain 09/30/24 10/30/24 10/14/24 History suspension apixaban 5 mg tablet 5 mg feeding tube BID 09/30/24 10/30/24 10/29/24 History atenolol 50 mg tablet 50 mg feeding tube DAILY 09/30/24 10/30/24 10/29/24 History atorvastatin 40 mg tablet 40 mg feeding tube BEDTIME 09/30/24 10/30/24 10/28/24 History bisacodyl 10 mg rectal suppository 10 mg MT DAILY PRN Constipation 09/30/24 10/30/24 Unknown History calcium polycarbophil 625 mg 625 mg feeding tube DAILY 09/30/24 10/30/24 08/18/24 History tablet (Fiber (calcium polycarbophil)) lidocaine 4 % topical patch 1 patch topical DAILY PRN Pain 09/30/24 10/30/24 10/29/24 History (Lidocaine Pain Relief) omeprazole magnesium 10 mg oral 40 mg feeding tube DAILY@0630 09/30/24 10/30/24 10/29/24 History suspension,delayed release Lactobacillus acidoph-L.bulgaricus 1 tab feeding tube TID 10/30/24 10/30/24 10/29/24 History 1 million cell tablet acetaminophen 650 mg rectal 650 mg MT DAILY PRN Fever 10/30/24 10/30/24 Unknown History suppository acetaminophen 650 mg/20.3 mL oral 640 mg feeding tube BID General 10/30/24 10/30/24 Unknown History suspension Discomfort ascorbic acid (vitamin C) 500 mg 500 mg feeding tube BID 10/30/24 10/30/24 09/21/24 History tablet (Vitamin C) fidaxomicin 200 mg tablet (Dificid) 200 mg feeding tube BID 10/30/24 10/30/24 10/29/24 History melatonin 3 mg tablet 3 mg feeding tube BEDTIME 10/30/24 10/30/24 10/28/24 History paroxetine HCl 10 mg/5 mL oral 10 mg feeding tube DAILY 10/30/24 10/30/24 10/29/24 History suspension Physical Exam Vital Signs: Vital Signs: Last Vital Signs Temp 97.8 F 11/02/24 15:58 Pulse 65 11/02/24 15:58 Resp 18 11/02/24 15:58 BP 151/70 H 11/02/24 15:58 Pulse Ox 97 11/02/24 15:58 O2 Del Method Oxymask 11/02/24 15:58 O2 Flow Rate 2 11/02/24 15:58 BMI result Body Mass Index 27.9 Const: General: no acute distress, alert, awake and other (Nonverbal) Eyes: Sclerae: sclerae normal EOM: EOMs intact bilaterally Neck: Neck: Yes no lymphadenopathy, Yes trachea midline and Yes supple Resp: Effort & Inspection: normal respiratory effort and no respiratory distress Auscultation: crackles (Mild bibasilar) Cardio: Rate: regular rate Rhythm: regular rhythm Heart sounds: no gallops, no murmurs and no rubs GI: Inspection: Yes G-tube present Palpation (GI): Soft to palpation and Other GI palpation findings present ( Nontender) Auscultation: normal bowel sounds Extrem: General: Yes no pedal edema, No clubbing and No cyanosis Results Laboratory Findings 11/02/24 06:19 11/02/24 06:19 Abnormal lab findings: Abnormal Labs 10/29/24 10/29/24 10/29/24 16:24 17:02 19:26 WBC 30.5 H* RBC Hgb 13.6 L Hct 40.0 L Immature Gran % (Auto) 0.9 H Neut % (Auto) 89.9 H Lymph % (Auto) 1.7 L Lymph # (Auto) 0.5 L Jenkins # (Auto) 2.2 H Abs Immat Gran (auto) 0.28 H Absolute Neuts (auto) 27.4 H Neutrophils % (Manual) Band Neutrophils % Lymphocytes % (Manual) Abs Neuts (Manual) Lymphocytes # (Manual) Potassium Chloride 110 H Carbon Dioxide Anion Gap BUN Creatinine Random Glucose 127 H Lactic Acid 3.1 H* Lactic Acid F/U @ 2Hr Lactic Acid F/U @ 4Hr Calcium 7.8 L D Phosphorus Total Bilirubin ALT 49 H B-Natriuretic Peptide Total Protein 4.8 L Albumin 2.9 L TSH 0.31 L Urine Blood Small (1+) H Urine Nitrite Positive H Ur Leukocyte Esterase Large (3+) H Urine RBC 3-5 H Urine WBC >50 H 10/29/24 10/29/24 10/30/24 19:27 22:32 05:21 WBC RBC Hgb Hct Immature Gran % (Auto) Neut % (Auto) Lymph % (Auto) Lymph # (Auto) Jenkins # (Auto) Abs Immat Gran (auto) Absolute Neuts (auto) Neutrophils % (Manual) Band Neutrophils % Lymphocytes % (Manual) Abs Neuts (Manual) Lymphocytes # (Manual) Potassium Chloride Carbon Dioxide Anion Gap BUN Creatinine Random Glucose Lactic Acid 2.7 H* Lactic Acid F/U @ 2Hr 3.7 H* Lactic Acid F/U @ 4Hr 3.7 H* Calcium Phosphorus Total Bilirubin ALT B-Natriuretic Peptide 810 H Total Protein Albumin TSH Urine Blood Urine Nitrite Ur Leukocyte Esterase Urine RBC Urine WBC 10/30/24 10/30/24 10/31/24 08:10 10:51 05:41 WBC 36.9 H* 22.8 H RBC 3.95 L 4.02 L Hgb 11.8 L 11.8 L Hct 34.8 L 35.9 L Immature Gran % (Auto) Neut % (Auto) Lymph % (Auto) Lymph # (Auto) Jenkins # (Auto) Abs Immat Gran (auto) Absolute Neuts (auto) Neutrophils % (Manual) 76 H 79 H Band Neutrophils % 19 H 15 H Lymphocytes % (Manual) 1 L 3 L Abs Neuts (Manual) 35.1 H 21.4 H Lymphocytes # (Manual) 0.4 L 0.7 L Potassium 3.2 L D 2.7 L* Chloride 113 H 110 H Carbon Dioxide 21 L Anion Gap 11 L BUN Creatinine Random Glucose 145 H 124 H Lactic Acid Lactic Acid F/U @ 2Hr 2.3 H* Lactic Acid F/U @ 4Hr 2.7 H* Calcium 8.1 L Phosphorus 2.4 L 1.3 L Total Bilirubin 2.5 H ALT B-Natriuretic Peptide Total Protein 5.4 L 4.7 L Albumin 3.1 L TSH Urine Blood Urine Nitrite Ur Leukocyte Esterase Urine RBC Urine WBC 10/31/24 10/31/24 11/02/24 16:42 19:05 06:19 WBC RBC 4.09 L Hgb 12.0 L Hct 36.3 L Immature Gran % (Auto) Neut % (Auto) Lymph % (Auto) Lymph # (Auto) Jenkins # (Auto) Abs Immat Gran (auto) Absolute Neuts (auto) Neutrophils % (Manual) Band Neutrophils % Lymphocytes % (Manual) Abs Neuts (Manual) Lymphocytes # (Manual) Potassium 5.2 H D 3.2 L D Chloride 112 H 113 H Carbon Dioxide 21 L 20 L Anion Gap 11 L 11 L 9 L BUN 8 L 7 L Creatinine 0.46 L Random Glucose 158 H 160 H 144 H Lactic Acid Lactic Acid F/U @ 2Hr Lactic Acid F/U @ 4Hr Calcium 7.8 L 7.7 L 8.0 L Phosphorus Total Bilirubin ALT B-Natriuretic Peptide Total Protein Albumin TSH Urine Blood Urine Nitrite Ur Leukocyte Esterase Urine RBC Urine WBC Microbiology: Microbiology 10/29/24 20:03 Urine Catheterized - Riley Catheter Urine Culture - Final Escherichia coli 10/30/24 15:32 Blood - Venous Blood Culture - Preliminary No growth after 48 hours. 10/30/24 15:32 Blood - Venous Blood Culture - Preliminary No growth after 48 hours. 10/29/24 16:27 Blood - Venous Blood Culture - Preliminary No growth after 48 hours. 10/29/24 16:27 Blood - Venous Blood Culture - Final Coag negative Staphylococcus Assessment and Plan (1) Pulmonary aspiration: Status: Acute (2) Atelectasis: Status: Acute (3) Acute respiratory failure with hypoxia: Status: Acute Plan Impression: 64-year-old gentleman with underlying CVA related dysphagia status post PEG and chronic pulmonary aspiration now with recurrent hypoxia. Recommendations: Continue to titrate off supplemental oxygen as tolerated. Suggest chest physiotherapy every shift. At this time no evidence of aspiration pneumonitis or pneumonia, thus would recommend against empiric antibiotics. Procedures Date of Service Date of Service: 11/02/24
[2024-11-02 23:08] LABS: Calcium, Ionized 4.9 mg/dL (4.7-5.5)
[2024-11-03 03:03] VITALS: BP 133/61; PULSE 62; RESP 18; TEMP 36.5; O2SAT 99
[2024-11-03] MEDS: vancomycin HCL Oral Solution 125 MG/5 ML SOLN.RECON 500 MG PO ×2 (04:48→10:35)
[2024-11-03 06:00] VITALS: BMI 34.0
[2024-11-03 07:49] VITALS: BP 136/72; PULSE 74; RESP 18; TEMP 36.6; O2SAT 98
[2024-11-03] MEDS: Omeprazole/Na Bicarb Oral Susp 20 MG/10 ML UD Cup PO (07:49)
[2024-11-03] MEDS: 0.9 % Sodium Chloride Flush 3 ML SYRINGE IVFLUSH (07:50)
[2024-11-03 08:44] LABS: Anion Gap 11 (12-20); Blood Urea Nitrogen 6 mg/dL (9-16); Calcium 8.3 mg/dL (8.4-10.2); Carbon Dioxide 30 mmol/L (22-29); Chloride 106 mmol/L (96-108); Creatinine Clr Calc Pharmacy 172.8; Estimated Glomerular Filt Rate > 60; Potassium 3.4 mmol/L (3.3-5.1); Sodium 144 mmol/L (135-145)
--- NOTE | 2024-11-03 11:10 | MHC.CM.PN ---
Addendum entered by Migdalia Jones 11/03/24 12:25: DC Summary has been successfully faxed to Nursing Wool Dyer/[facility] @ [facility] [place] at fax # [phone]. Addendum entered by Migdalia Jones 11/03/24 12:06: ARIELA spoke with RN Wool Dyer/Isacc @ [facility] [place] @ [phone], who approved Patient's return today at 1:30PM. Once dc summary is signed by , it will be faxed to [facility] @ [phone]. Original Note: Per MD, Patient is medically cleared for dc to return to [facility]TC today. Patient will return to [facility] today at 1:30 PM via [facility]. ARIELA spoke with /HCP/Kathy and addressed IMM with her (she requested that another IMM NOT be sent to her).
--- NOTE | 2024-11-03 11:27 | P.DS_ITS ---
DS: Providers Provider Date of Service: 11/03/24 Date of admission: 10/30/24 02:22 Date of discharge: 11/03/24 Primary care physician: Miller Caban MD Consults: 10/30/24 00:14 Consult to Wound Care Routine Reason for consultation: pressure ulcer 10/30/24 17:28 Consult to Infectious Diseases Routine Consulting Provider: [facility] Reason for consultation: c diff colitis ,septic Has provider been notified: No 11/01/24 22:03 Consult to Cardiology Routine Consulting Provider: [facility] Reason for consultation: afib with rvr Has provider been notified: Yes 11/02/24 15:42 Consult to Pulmonology Routine Consulting Provider: [facility] Reason for consultation: atleactasis ,mucus pluging ,? endobronchial lesion on chest ct Has provider been notified: No Attending physician on discharge: Genia Velazco Discharging clinician: Genia Velazco DS: Diagnosis Discharge Diagnosis (1) C. difficile colitis: Status: Acute DS: Summary Hospital Course Hospital Course: HPI: 64 yo male unable to provide HPI or medical/surgical hx as pt is aphasic. 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 Pt was transferred to ED via ambulance from [facility] with fever. Pt had been diagnosed with CDIFF this past Saturday. This racebook writer did speak to nursing at [facility] and although patient was diagnosed with C diff on 10/27/2024, patient did not start treatment while there because the medication was not available at the [facility]. Apparently patient was to start fidaxomicin. Patient currently is nonverbal and not responding to verbal stimuli.Unable to reach pt's spouse to confirm baseline mental status and advanced directives. Nursing at the [facility] indicate that patient usually is interactive, we will open eyes and interact via yes or no answers. This most likely has a metabolic encephalopathy secondary to sepsis. The ED provider was able to speak to spouse and per her instruciton, pt should be a DNR/ DNR with previous directives listed as resuscitation allowed but DNI. Orders updated on admission. In the emergency room, Pt was started on Cefepime and Vanco via PEG tube in the ED. Pt received fluid resuscitation per sepsis protocol 30mls/Kg but pt still had issues maintaining blood pressure. Pt then received albumin and BP improved. WBCs 30.5, Lactate 3.1 to 3.7, repeat pending. UA postive for UTI. Urine and Blood cultures were drawn. CXR negative for consolidation, opacity but mild pulmonary edema noted. All viral studies are negative. Fever was noted to be 100.6, rising slightly. Ofirmev and Ibuprofen via peg ordered. Pt now has rectal tube which is properly placed via CT and rodríguez, also placed due to urinary retention of 300 ccs. hospital course: 64-year-old male resident of the [facility] with underlying history of hypertension, hyperlipidemia, chronic constipation, recurrent C diff colitis who has a G-tube in the left abdomen, hemorrhagic stroke, history of PE currently on Eliquis.? Reportedly the patient was diagnosed with C diff colitis 3 days ago before admission and was to start fidaxomicin: Patient was in ICU to hypotension and sepsis-received IV antibiotics as well as Levophed: Subsequently transferred to the floor:sepsis/colitis c diff-patient was given p.o. vanco and IV Flagyl in ICU: Patient seems to be improved significantly Blood culture coagulase-negative Staph-possible contamination, repeat blood culture negative, urine grew ESBL(thought to be colonization). Above was reviewed with ID in detail: Recommended to discontinue Zosyn/Flagyl. Recommended p.o. vanco 250 mg q.i.d. for 10 days and then taper as prescribed. Metabolic encephalopathy : With the above management with the hydration, electrolyte replacement, antibiotics: Patient mental status seems to be improved at baseline. Today even he asked me how I am doing. CT of the head ordered noting patient's stroke history -No acute intracranial findings.Possible normal pressure hydrocephalus in the proper clinical setting. Patient seems to be improved near her baseline, further management outpatient. acute hypokalemia: Repleted and resolved. hypoxic : Possibly related to atelectasis with chronic aspiration component nebuliser prn ,chest physiotherpay chest ct -Occluded left lower lobe lobar and bilateral lobe segmental and subsegmental bronchi could be due to mucus impactions. Follow-up recommended to exclude underlying left lower lobe endobronchial neoplasm Seen by Pulmonary-chest CT reviewed, continue management with the chest physiotherapy ,p.r.n. nebs, follow-up with Pulmonary outpatient for further management for above - thought to be above due to atelactasis/ch. aspiration. Skin excoriations related to CDIFF infeciton WOund care : Turn and Reposition every 2 hours and as needed for patient comfort.? Use pillows or wedges to support off loading positions. Off Load all bony prominences with use of pillows and heel boots if needed.? Apply Preventative foams where needed. ? Monitor for incontinence and moisture control, use barrier creams when needed for prevention and treatment. Provide adequate and supplemental nutrition.? When applicable maintain blood glucose levels per Providers order. Sacrum and Coccyx - Off Load Pressure with Q2 hr turns and use of pillows - Cleanse with PH balance spray or wipes, pat dry. ?Apply thin layer of Triad to wound bed - only pat and dab no scrub and rub when soiling occurs. Reapply thin layer PRN after each episode of incontinence. plan: Patient admitted for C diff colitis sepsis: Improved with antibiotics. Diarrhea improved, rectal tube removed. Vanco taper as prescribed through PEG tube. If any new symptoms or fever go to the nearest emergency room. Hypokalemia: Potassium repleted and resolved. We added Neutra-Phos for 4 days because phosphorus low. Initial hypoxia-likely due to atelectasis/chronic pulmonary aspiration: Patient is off oxygen, continue chest physiotherapy, p.r.n. nebs as needed. AFib with RVR episode: TSH normal, echo:The left ventricular systolic function is normal. The calculated ejection fraction is 57% : Patient on atenolol, continue Eliquis. Cardiology evaluated with the patient recommended to continue above management. Consider outpatient cardiology follow-up. In addition patient requested speech evaluation in rehab. Wound care instructions as above. Above management discussed with the patient in detail length she understand and in agreement with the above plan, time spent 40 minute, all questions answered, case management staff was present during conversation. Time Attestation Total time managing care of this patient today: 40 mintues. Discharge Coordination Time (in mins): 40 min Quality: Safe Use of Opioids Does Pt have an Active Cancer Diagnosis on the Problem List?: No Quality: Stroke Does the patient have a stroke diagnosis?: No Physical Exam Vital Signs: Vital Signs: Last Vital Signs Temp 97.8 F 11/03/24 07:49 Pulse 74 11/03/24 07:49 Resp 18 11/03/24 07:49 BP 136/72 11/03/24 07:49 Pulse Ox 98 11/03/24 07:49 O2 Del Method Room Air 11/03/24 07:49 O2 Flow Rate 2 11/03/24 03:03 BMI result Body Mass Index 34.0 Appearance: awake ? cvs: rrr, [id number] . res: air entry abd: no rebound or guarding ,nt, bs present. ext pulses present , no cyanosis. neuro: awake DS: Data Data Completed and Pending Labs on day of discharge: Laboratory Results - last 24 hr 10/30/24 11/03/24 05:21 08:02 Sodium 144 Potassium 3.4 Chloride 106 Carbon Dioxide 30 H Anion Gap 11 L BUN 6 L Creatinine 0.47 L Estim Creat Clear Calc 172.8 Estimated GFR > 60 Random Glucose 111 Calcium 8.3 L Ionized Calcium 4.9 Preliminary micro results at discharge 10/30/24 15:32 Blood Culture - Preliminary Blood - Venous No growth after 48 hours. 10/30/24 15:32 Blood Culture - Preliminary Blood - Venous No growth after 48 hours. 10/29/24 16:27 Blood Culture - Preliminary Blood - Venous No growth after 48 hours. Discharge Plan Discharge Anticipated Discharge Date/Time: 11/03/24 11:05 Patient Disposition: Xfer [facility] Discharge Diagnosis: sepsis ,cdiff colitis ,afib rvr Referrals: [facility] [Outside] - 1 Week Miller Caban MD [Primary Care Provider, Internal Medicine] - 1 Week Discharge Medications: New vancomycin 250 mg capsule 250 mg PO QID Qty: 1 0RF Rx Instructions: 250mg orally 4 times daily for 10 days, then. 125 mg orally twice daily for 7 days, then. 125 mg orally once daily for 7 days, then vancomycin 125 mg po 3xweek,125 mg every 3 days for 1 week ,then stop potassium, sodium phosphates [Phos-NaK] 280-160-250 mg powder in packet 1 packet PO QID Qty: 1 0RF Rx Instructions: for 4 days -then repeat bmp Continued acetaminophen 650 mg Suppository 650 mg HI DAILY MDD 3 gm PRN (Reason: Fever) melatonin 3 mg Tablet 3 mg feeding tube BEDTIME Lactobacillus acidoph-L.bulgar 1 million cell Tablet 1 tab feeding tube TID acetaminophen 650 mg/20.3 mL Suspension 640 mg feeding tube BID Dificid 200 mg Tablet 200 mg feeding tube BID ascorbic acid (vitamin C) [Vitamin C] 500 mg Tablet 500 mg feeding tube BID paroxetine HCl 10 mg/5 mL Suspension 10 mg feeding tube DAILY atorvastatin 40 mg tablet 40 mg feeding tube BEDTIME atenolol 50 mg tablet 50 mg feeding tube DAILY lidocaine [Lidocaine Pain Relief] 4 % adhesive patch,medicated 1 patch topical DAILY PRN (Reason: Pain) acetaminophen 650 mg/20.3 mL suspension 640 mg feeding tube Q6H MDD 3 Gm PRN (Reason: Pain) omeprazole magnesium 10 mg susp,delayed release for recon 40 mg feeding tube DAILY@0630 apixaban 5 mg tablet 5 mg feeding tube BID Held bisacodyl 10 mg suppository 10 mg HI DAILY PRN (Reason: Constipation) Hold Instructions: Resume on 11/25/24. calcium polycarbophil [Fiber (calcium polycarbophil)] 625 mg tablet 625 mg feeding tube DAILY Hold Instructions: Resume on 11/25/24. Discharge Orders: Discharge Order (Routine); Ordered 11/03/24 Ordered By: Genia Velazco Diet: Advance to usual diet Activity on Discharge: As tolerated Stand Alone Forms: Patient Portal Discharge page Print Language: Syriac Other Ambulatory Orders: Basic Metabolic Panel (Routine) Timeframe: 1 Week Facility: [facility] - Location: Laboratory Ordered By: Genia Velazco Complete Blood Count no Diff (Routine) Timeframe: 1 Week Facility: [facility] - Location: Laboratory Ordered By: Genia Velazco Phosphorus (Routine) Timeframe: 1 Week Facility: [facility] - Location: Laboratory Ordered By: Genia Velazco Care Plan Goals: Patient admitted for C diff colitis sepsis: Improved with antibiotics. Diarrhea improved, rectal tube removed. Vanco taper as prescribed through PEG tube. If any new symptoms or fever go to the nearest emergency room. Hypokalemia: Potassium repleted and resolved. We added Neutra-Phos for 4 days because phosphorus low. Initial hypoxia-likely due to atelectasis/chronic pulmonary aspiration: Patient is off oxygen, continue chest physiotherapy, p.r.n. nebs as needed. AFib with RVR episode: TSH normal, echo:The left ventricular systolic function is normal. The calculated ejection fraction is 57% : Patient on atenolol, continue Eliquis. Cardiology evaluated with the patient recommended to continue above management. Consider outpatient cardiology follow-up. In addition patient requested speech evaluation in rehab. Wound care instructions as above. Health Concerns: As above. Plan of Treatment: As above. Assessment: As above.
[2024-11-03 11:33] VITALS: BP 135/65; PULSE 60; RESP 20; TEMP 36.8; O2SAT 91
[2024-11-03] MEDS: Acetylcysteine 10 % 400 MG/4 ML VIAL INHALE (11:42)
[2024-11-03 11:45] VITALS: PULSE 58; RESP 16; O2SAT 97
== END 2024-11-03 14:16 | DRG 871 ==
LOC: HO.ED 19:40 → HO.EDOVER 10-30 02:24 → HO.ICU 10-30 02:27 → HO.IMC 10-30 18:03
PROVIDERS: Nurse Practitioner Family; Student in an Organized Health Care Education/Training Program; Admitting Provider Physician Assistant Medical; Emergency Provider Emergency Medicine Emergency Medical Services; PCP Internal Medicine; Visit Provider Internal Medicine
DX: A41.4 Sepsis due to anaerobes (principal); G93.41 Metabolic encephalopathy; R65.21 Severe sepsis with septic shock; R57.1 Hypovolemic shock; A04.72 Enterocolitis due to Clostridium difficile, not specified as recurrent; J98.11 Atelectasis; N39.0 Urinary tract infection, site not specified; E07.81 Sick-euthyroid syndrome; Z66 Do not resuscitate; L08.89 Other specified local infections of the skin and subcutaneous tissue; L89.152 Pressure ulcer of sacral region, stage 2; Z20.822 Contact with and (suspected) exposure to COVID-19; E87.6 Hypokalemia; I48.91 Unspecified atrial fibrillation; Z74.01 Bed confinement status; I69.391 Dysphagia following cerebral infarction; R13.10 Dysphagia, unspecified; Z93.1 Gastrostomy status; Z86.711 Personal history of pulmonary embolism; Z87.891 Personal history of nicotine dependence; Z79.01 Long term (current) use of anticoagulants; Z79.899 Other long term (current) drug therapy
CPT/HCPCS: 36415; 70450; 71045; 71250; 74176; 80048; 80053; 80076; 81001; 82330; 82803; 83605; 83735; 83880; 84100; 84439; 84443; 85007; 85025; 85027; 87040; 87086; 87088; 87147; 87186; 87205; 87637; 93005; 93306; 94640; 99285; J0131; J0616; J0692; J0696; J1160; J1836; J2185; J2543; J3475; J3480; J7120; P9047; Q9957

== ENCOUNTER → 2024-10-29 17:19 | Outpatient (BNV) | payer MEDICARE, SELFPAY | PROVIDERS: Emergency Provider Emergency Medicine Emergency Medical Services; PCP Internal Medicine; Visit Provider Nurse Practitioner Family | DX: Z93.1 Gastrostomy status (principal); A41.9 Sepsis, unspecified organism; A04.72 Enterocolitis due to Clostridium difficile, not specified as recurrent | CPT/HCPCS: 99232; 99499 ==

== ENCOUNTER → 2024-10-30 00:25 | Outpatient (BNV) | payer MEDICARE, SELFPAY | PROVIDERS: Admitting Provider Physician Assistant Medical; Emergency Provider Emergency Medicine Emergency Medical Services; PCP Internal Medicine; Visit Provider Radiology Diagnostic Radiology | DX: J98.11 Atelectasis (principal); R41.82 Altered mental status, unspecified | CPT/HCPCS: 70450; 71250 ==

== ENCOUNTER 2024-10-30 02:22 | Outpatient (BNV) | payer OTHER, SELFPAY | END 2024-11-01 21:37 | PROVIDERS: Admitting Provider Physician Assistant Medical; Emergency Provider Emergency Medicine Emergency Medical Services; PCP Internal Medicine; Visit Provider Internal Medicine | DX: I48.91 Unspecified atrial fibrillation (principal); I49.3 Ventricular premature depolarization | CPT/HCPCS: 93010 ==

== ENCOUNTER → 2024-10-30 02:22 | Outpatient (BNV) | payer OTHER, SELFPAY | PROVIDERS: Admitting Provider Physician Assistant Medical; Emergency Provider Emergency Medicine Emergency Medical Services; PCP Internal Medicine; Visit Provider Internal Medicine | DX: A41.9 Sepsis, unspecified organism (principal); R65.21 Severe sepsis with septic shock; A04.72 Enterocolitis due to Clostridium difficile, not specified as recurrent | CPT/HCPCS: 99232 ==

== ENCOUNTER → 2024-10-30 02:22 | Outpatient (BNV) | payer OTHER, SELFPAY | PROVIDERS: Admitting Provider Physician Assistant Medical; Emergency Provider Emergency Medicine Emergency Medical Services; PCP Internal Medicine; Visit Provider Physician Assistant Medical | DX: A41.9 Sepsis, unspecified organism (principal); R65.21 Severe sepsis with septic shock | CPT/HCPCS: 99291; 99292 ==

== ENCOUNTER → 2024-10-30 02:22 | Outpatient (BNV) | payer OTHER, SELFPAY | PROVIDERS: Admitting Provider Physician Assistant Medical; Emergency Provider Emergency Medicine Emergency Medical Services; PCP Internal Medicine; Visit Provider Internal Medicine | DX: I48.91 Unspecified atrial fibrillation (principal) | CPT/HCPCS: 99223 ==

== ENCOUNTER 2024-11-09 06:59 | Outpatient (REF) | payer MEDICARE, SELFPAY ==
--- OUTSIDE RECORDS SUMMARY | 2024-08-14 09:00 | XMS_ITS ---
Author Organization [facility] Address 7 [facility] 2 [place] [address] Care Team Providers Care Engineering Project Manager Name Role Phone Cosmo BARRIOS, Maciej Primary Care Provider Agustina Araujo Unavailable [phone] REASON FOR VISIT fdc follow up wound care Encounters Encounter Location Date Provider Diagnosis [facility] [address] [facility] [place] [address] 08/14/2024 Agustina Mayo Diaper dermatitis L22 and [...] plan of care. I Agustina Mayo MSN, [facility]- examined, evaluated and treated the patient. Dr. Chintan Day was available for any question or concerns that I may have had. Next Appt Details Follow Up: 1 week, Reason: Progress Notes * Gilmar ALCANTARADOB:[birth year] (64 yo M)Acc No.[id number]:08/14/2024 Senior Living Follow-Up Visit Patient: Gilmar SCHULTZ Provider: Leah Mayo NP :1960 A ge:64 Y S ex:Male Date:08/14/2024 Address:[address] [place] [address], [id number] Pcp:Maciej Wilburn MD Subjective: * Chief Complaints: * 1 . senior living follow up wound care. * HPI: W [...] Information: * Visit Code: * Procedure Codes: 63970 NURSING FAC CARE SUBSEQ. * Electronic signature of Lacy Mayo NP on 11/09/2024 at 07:01 AM EDT Sign off status: Pending * Provider: Leah Mayo NP Date: 08/14/2024 Generated for Anastacia pires/Hortensia/Lor on: 11/09/2024 07:01 AM EDT History and Physical Notes * Examination [...]
[2024-11-09 07:02] LABS: MANUAL DIFF FLAG NO
--- OUTSIDE RECORDS SUMMARY | 2024-11-09 07:02 | XMS_ITS | Clinical Summary ---
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
[2024-11-09 07:17] LABS: Hematocrit 38.9 % (42.0-52.0); Hemoglobin 12.8 g/dl (14.0-18.0); Imm Gran Abs Auto 0.03 X10*3/uL (0.00-0.03); Imm Gran Pct Auto 0.3 % (0.0-0.4); Lymphocytes Absolute Auto 1.7 X10*3/uL (1.2-4.9); Mean Corpuscular HGB Conc 32.9 g/dl (31.0-36.0); Mean Corpuscular Hemoglobin 29.4 pg (27.0-33.0); Mean Corpuscular Volume 89.4 fL (80.0-98.0); NRBC Abs Auto 0.000 X10*3/uL (0.0-0.012); NRBC Pct Auto 0.0 /100WBC (0.0-0.2); Platelet Count 300 X10*3/uL (160-400); Red Blood Count 4.35 X10*6/uL (4.60-5.80); White Blood Count 9.9 X10*3/uL (4.8-10.8)
[2024-11-09 07:32] LABS: Alanine Aminotransferase 29 U/L (0-40); Albumin Level 3.2 g/dL (3.5-5.0); Alkaline Phosphatase 114 U/L (39-117); Anion Gap 13 (12-20); Aspartate Amino Transferase 33 U/L (5-37); Blood Urea Nitrogen 10 mg/dL (9-16); Calcium 8.8 mg/dL (8.4-10.2); Carbon Dioxide 26 mmol/L (22-29); Chloride 106 mmol/L (96-108); Estimated Glomerular Filt Rate > 60; Potassium 4.8 mmol/L (3.3-5.1); Sodium 140 mmol/L (135-145); Total Protein 5.6 g/dL (6.5-8.0)
== END 2024-11-09 07:00 | disposition home or self-care (01) ==
LOC: HO.HSH3E 06:59
PROVIDERS: Visit Provider Nurse Practitioner
DX: Z13.89 Encounter for screening for other disorder (principal)
CPT/HCPCS: 36415; 80053; 84100; 85025

== ENCOUNTER 2024-12-14 10:56 | Outpatient (AMB) | payer MEDICARE, SELFPAY ==
--- OUTSIDE RECORDS SUMMARY | 2024-08-14 09:00 | XMS_ITS ---
Author Organization [facility] Address 7 [facility] 2 [place] [address] Care Team Providers Care Donor Relations Coordinator Name Role Phone Cosmo BARRIOS, Maciej Primary Care Provider Agustina Araujo Unavailable [phone] REASON FOR VISIT correction follow up wound care Encounters Encounter Location Date Provider Diagnosis [facility] [address] [facility] [address] 08/14/2024 Agustina Mayo Diaper dermatitis L22 and [...] plan of care. I Agustina Mayo MSN, [facility]- examined, evaluated and treated the patient. Dr. Chintan Day was available for any question or concerns that I may have had. Next Appt Details Follow Up: 1 week, Reason: Progress Notes * Gilmar ALCANTARADOB:[birth year] (64 yo M)Acc No.[id number]:08/14/2024 Long Term Follow-Up Visit Patient: Gilmar SCHULTZ Provider: Leah Mayo NP :1960 A ge:64 Y S ex:Male Date:08/14/2024 Address:[address] [place] [address], [place] [facility] Pcp:Maciej Wilburn MD Subjective: * Chief Complaints: * 1 . [facility] follow up wound care. * HPI: W [...] Information: * Visit Code: * Procedure Codes: 24182 NURSING FAC CARE SUBSEQ. * Electronic signature of Lacy Mayo NP on 12/14/2024 at 12:18 PM EDT Sign off status: Pending * Provider: Leah Mayo NP Date: 08/14/2024 Generated for Anastacia pires/Hortensia/Lor on: 0 12/14/2024 12:18 PM EDT History and Physical Notes * [...]
--- NOTE | 2024-12-14 11:02 | MHC.OFFVIS ---
Vital Signs 12/14/24 11:12 Height 5 ft 7 in Weight 150 lb BMI 23.5 BP 124/62 Blood Pressure Location Rt brachial Position Sitting Pulse 62 Intake Visit Reasons: g-tube issues Intake Note: Patient here for follow up Jpeg tube. Patient c/o: spouse reports patient on oxygen as of this morning. Movement Assembly Final Inspector Required: No Accompanied by: spouse Kathy Allergies No Known Allergies Allergy (Verified 12/14/24 11:12) Medication List - Last Reconciled 12/14/24 by Aly Farias MD acetaminophen 640 mg feeding tube BID acetaminophen 650 mg CA DAILY PRN MDD 3 gm acetaminophen 640 mg feeding tube Q6H PRN MDD 3 Gm apixaban 5 mg feeding tube BID ascorbic acid (vitamin C) (Vitamin C) 500 mg feeding tube BID atenolol 50 mg feeding tube DAILY atorvastatin 40 mg feeding tube BEDTIME bisacodyl 10 mg CA DAILY PRN Held on 11/03/24. Instructions: Resume on 11/25/24. calcium polycarbophil (Fiber (calcium polycarbophil)) 625 mg feeding tube DAILY Held on 11/03/24. Instructions: Resume on 11/25/24. fidaxomicin (Dificid) 200 mg feeding tube BID Lactobacillus acidoph-L.bulgar 1 million cell 1 tab feeding tube TID lidocaine 4% (Lidocaine Pain Relief) 1 patch topical DAILY PRN melatonin 3 mg feeding tube BEDTIME omeprazole magnesium 40 mg feeding tube DAILY@0630 paroxetine HCl 10 mg feeding tube DAILY potassium, sodium phosphates 280-160-250 mg (Phos-NaK) 1 packet PO QID vancomycin 250 mg PO QID HPI HPI g-tube issues: Details: He is known to me for the presence of a PEG tube. He is here because of a frequently clogged PEG tube. There is no significant changes to his overall health. [facility] He is not very communicative. He is mostly bed-bound or wheelchair-bound. [facility] Medical History PEG tube malfunction Pulmonary aspiration Constipation Chronic GERD Hypertension Hx pulmonary embolism Hypoxia C. difficile diarrhea Surgical History PEG (percutaneous endoscopic gastrostomy) status Social History Household Members: Other Housing: Snf Housing Other:: [facility] Unable to assess alcohol history related to: Unknown Patient Tobacco Use Status: Former Tobacco user Tobacco use type: Cigarette Years Smoked: 20 service: Yes Review of Systems Const Denies chills and Denies fever(s) Card Denies chest pain Resp Denies cough GI Denies abdominal pain Physical Exam Vital Signs: Last Vital Signs Pulse 62 12/14/24 11:12 BP 124/62 12/14/24 11:12 BMI result Body Mass Index 23.5 Const Other: On stretcher, appears comfortable, not communicative General: no acute distress Resp Effort & Inspection: normal respiratory effort Cardio Rate: regular rate GI Other: Peg tube in place, peg tube appears dirty Palpation (GI): Soft to palpation, not firm and no guarding Assessment & Plan Assessment & Plan (1) PEG tube malfunction: Code(s): K94.23 - Gastrostomy malfunction Category: Medical Plan: His PEG tube has been clogging frequently. I therefore change this. I desufflated the balloon. I replaced this with a mixed 16 replacement PEG tube without difficulty. The balloon was inflated to 5 cc of normal saline He tolerated the procedure well. There were no immediate complications. Coding Level of Care Code Est Pt Level 3 (33981) Diagnoses PEG tube malfunction K94.23
[2024-12-14 11:12] VITALS: BP 124/62; PULSE 62; BMI 23.5
--- OUTSIDE RECORDS SUMMARY | 2024-12-14 12:18 | XMS_ITS | Clinical Summary ---
Author Organization [facility] Address [address] [facility] [address] [place] [address] Care Team Providers Care Bicycle Mechanic Name Role Phone Unavailable Primary Care Provider [...] Description 10/14/2024 3:15 PM EDT Office Visit [facility] [address] [place] [address] [phone] Gretel Messer Dental calculus (Primary Dx); Dental plaque; Subgingival dental calculus; Supragingival dental calculus; Tongue fissure; Tongue coating 09/30/2024 9:15 AM EDT Office Visit [facility] [address] [place] [id number] Eyad Campuzano DMD from Last 3 Months [...]
== END 2024-12-14 11:25 | disposition home or self-care (01) ==
LOC: HO.HGS 10:58
PROVIDERS: Visit Provider Surgery
DX: K94.23 Gastrostomy malfunction (principal)
CPT/HCPCS: 99213

== ENCOUNTER → 2024-12-14 10:56 | Outpatient (BNVA) | payer MEDICARE, SELFPAY | PROVIDERS: Visit Provider Surgery | DX: K94.23 Gastrostomy malfunction (principal) | CPT/HCPCS: 99212 ==

== ENCOUNTER 2025-01-18 14:17 | Outpatient (REF) | payer MEDICARE, SELFPAY ==
--- OUTSIDE RECORDS SUMMARY | 2024-06-10 12:00 | XMS_ITS ---
Author Organization [facility] Address 7 [facility] 2 [place] [address] Care Team Providers Care Jockey Room Custodian Name Role Phone Cosmo BARRIOS, Maciej Primary Care Provider Agustina Araujo Unavailable [phone] Allergies No Known Allergies Medications Medication SIG (Take, Route, Frequency, Duration) Notes Start Date End Date Status Atenolol 25 MG 2 tablets G-Tube Onc e a day 03/15/2024 Active Atorvastatin Calcium 40 MG 1 tablet G-Tu be at bedtime 03/15/2024 Active Aspercreme Lidocaine 4 % as directed Ext ernally once a day 01/28/2024 Active Bisacodyl 10 MG 1 suppository Rectal Once a day As needed 11/21/2023 Active Clotrimazole-Betamethasone 1-0.05 % 1 application Externally Twice a day 05/28/2024 Active Acetaminophen 325 MG 2 tablets Orally on ce a day 01/14/2024 Active Apixaban 5 MG 1 tablet Orally twic e a day 11/26/2023 Active Acetaminophen 325 MG 2 tablets Orally every 6 hrs As needed for fever 01/14/2024 Active Acetaminophen 325 MG 2 tablets Orally every 6 hrs As needed for pain 01/14/2024 Active Ascorbic Acid 500 MG 1 tablet Orally Onc e a day 11/25/2023 Active Magnesium Hydroxide 400 MG/5ML 30 mL G-Tube once a day As needed 11/21/2023 Active Melatonin 3 MG 1 tablet G-Tube at bedtime 11/21/2023 Active Valsartan 80 MG 1 tablet G-Tube Once a day 03/15/2024 Active PARoxetine HCl 10 MG 1 tablet G-Tube Onc e a day 11/22/2023 Active Saccharomyces boulardii 250 MG 1 capsule G-Tube twice a day 11/21/2023 Active Lansoprazole 30 MG 1 tablet G-Tube in t he morning 11/22/2023 Active Firvanq 50 MG/ML 2.5 mL G-Tube every 48 hrs 05/25/2024 06/15/2024 Active Fleet Enema - as directed Rectal once a day As needed 11/21/2023 Active Encounters Encounter Location Date Provider Diagnosis [address] [place] [address] 06/10/2024 Agustina Mayo Plan Of Treatment No Information Progress Notes * Gilmar ALCANTARADOB:[birth year] (64 yo M)Acc No.[id number]:06/10/2024 Usp Follow-Up Visit Patient: Gilmar SCHULTZ Provider: Leah Mayo NP :1960 A ge:64 Y S ex:Male Date:06/10/2024 Address:[address] [place], [place] [address] , [place] [id number] Pcp:Maciej Wilburn MD Subjective: * Chief Complaints: * * Medical History: A nemia, unspecified, Chronic respiratory failure with hypoxia, Cognitive communication deficit, Dysphagia, unspecified, Effusion, left knee, Elevation of levels of liver transaminase levels, Essential (primary) hypertension, Expressive language disorder, Flexion deformity, left shoulder, Gastrointestinal hemorrhage, unspecified, Gastrostomy status, Hemiplegia and hemiparesis following cerebral infarction affecting left non-dominant side, Hyperlipidemia, unspecified, Muscle weakness (generalized), Need for assistance with personal care, Other specified depressive episodes, Personal history of pulmonary embolism, Psychophysiologic insomnia, Unspecified protein-calorie malnutrition, Urinary tract infection, site not specified. * Medications: T aking Acetaminophen 325 MG Tablet 2 tablets Orally every 6 hrs As needed for fever, Taking Acetaminophen 325 MG Tablet 2 tablets Orally every 6 hrs As needed for pain, Taking Acetaminophen 325 MG Tablet 2 tablets Orally once a day , Taking Apixaban 5 MG Tablet 1 tablet Orally twice a day , Taking Ascorbic Acid 500 MG Tablet 1 tablet Orally Once a day , Taking Aspercreme Lidocaine 4 % Patch as directed Externally once a day , Taking Atenolol 25 MG Tablet 2 tablets G-Tube Once a day , Taking Atorvastatin Calcium 40 MG Tablet 1 tablet G-Tube at bedtime , Taking Bisacodyl 10 MG Suppository 1 suppository Rectal Once a day As needed, Taking Clotrimazole-Betamethasone 1-0.05 % Cream 1 application Externally Twice a day , Taking Firvanq 50 MG/ML Solution Reconstituted 2.5 mL G-Tube every 48 hrs , stop date 06/15/2024, Taking Fleet Enema - Enema as directed Rectal once a day As needed, Taking Lansoprazole 30 MG Tablet Delayed Release Disintegrating 1 tablet G-Tube in the morning , Taking Magnesium Hydroxide 400 MG/5ML Suspension 30 mL G-Tube once a day As needed, Taking Melatonin 3 MG Tablet 1 tablet G-Tube at bedtime , Taking PARoxetine HCl 10 MG Tablet 1 tablet G-Tube Once a day , Taking Saccharomyces boulardii 250 MG Capsule 1 capsule G-Tube twice a day , Taking Valsartan 80 MG Tablet 1 tablet G-Tube Once a day , Medication List reviewed and reconciled with the patient * Allergies: N .K.D.A. Objective: * Vitals: Assessment: Plan: * Treatment: * Billing Information: * Visit Code: * Procedure Codes: * Electronic signature of Lacy Mayo NP on 01/18/2025 at 04:06 PM EDT Sign off status: Pending * Provider: Leah Mayo NP Date: 06/10/2024 Generated for Anastacia pires/Hortensia/Lor on: 01/18/2025 04:06 PM EDT
--- OUTSIDE RECORDS SUMMARY | 2024-08-14 09:00 | XMS_ITS ---
Author Organization [facility] Address 7 [facility] 2 [place] [address] Care Team Providers Care Human Resource Officer Name Role Phone Cosmo BARRIOS, Maciej Primary Care Provider Agustina Araujo Unavailable [phone] REASON FOR VISIT detention follow up wound care Encounters Encounter Location Date Provider Diagnosis [facility] [address] [facility] [place] [address] 08/14/2024 Agustina Mayo Diaper dermatitis L22 and [...] plan of care. I Agustina Mayo MSN, [facility]- examined, evaluated and treated the patient. Dr. Chintan Day was available for any question or concerns that I may have had. Next Appt Details Follow Up: 1 week, Reason: Progress Notes * Gilmar ALCANTARADOB:[birth year] (64 yo M)Acc No.[id number]:08/14/2024 Correction Follow-Up Visit Patient: Gilmar SCHULTZ Provider: Leah Mayo NP :1960 A ge:64 Y S ex:Male Date:08/14/2024 Address:[address] [place] [address], [place] [id number] Pcp:Maciej Wilburn MD Subjective: * Chief Complaints: * 1 . [facility] follow up wound care. * HPI: W [...] Information: * Visit Code: * Procedure Codes: 75231 NURSING FAC CARE SUBSEQ. * Electronic signature of Lacy Mayo NP on 01/18/2025 at 04:05 PM EDT Sign off status: Pending * Provider: Leah Mayo NP Date: 0 08/14/2024 Generated for Anastacia pires/Hortensia/Lor on: 0 01/18/2025 04:05 PM EDT History and Physical Notes * [...]
--- NOTE | ~2025-01-18 | FL_ITS ---
EXAMINATION: Modified Barium Swallow CLINICAL INFORMATION: Dysphagia secondary to CVA COMPARISON: None. TECHNIQUE: Modified barium swallow was performed under lateral fluoroscopy with patient in standing position. Barium mixed with solids and liquids of different consistencies was administered by the speech pathologist. Examination was recorded in the fluoroscopy suite. FINDINGS: There was laryngeal penetration and subglottic aspiration on thin liquids. This was felt by the patient with cough reflex. There was transient laryngeal penetration on nectar thick and honey thick liquids without subglottic aspiration. There was no significant penetration or aspiration with puree. There was persistent early spillover of residues with vallecular and piriform sinus pooling. FLUOROSCOPY TIME: 3 minutes, 6 seconds Number of Spot Images: N/A DOSE AREA PRODUCT: [id number] uGy-m2 (microgray-meter squared) FL/FL Modified Barium Swallow IMPRESSION: 1. Laryngeal penetration with subglottic aspiration on thin liquids. 2. Laryngeal penetration without subglottic aspiration on nectar thick and honey thick liquids. Please refer to the full speech therapy report to follow for further details. Electronically signed by: Manny Redd MD 01/18/2025 03:27 PM EDT
--- OUTSIDE RECORDS SUMMARY | 2025-01-18 16:05 | XMS_ITS | Clinical Summary ---
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 History of CVA with residual deficit 09/30/2024 HLD (hyperlipidemia) 09/30/2024 HTN (hypertension) 09/30/2024 Social History Tobacco Use Types Packs/Day Years Used Date Smoking Tobacco: Never Smokeless Tobacco: Never Tobacco Cessation:Counseling Given: Not Answered Sex and Gender Information Value Date Recorded Sex Assigned at Male 08/17/2024 3:15 PM EDT Legal Sex Male 3:14 PM EDT Gender Identity Male 08/17/2024 3:15 PM EDT Sexual Orientation Straight 08/17/2024 3: 15 PM EDT Plan of Treatment Upcoming Encounters Date Type Department Care Team (Late st Contact Info) Description 01/20/2025 2:30 PM EDT Office Visit [facility] [address] [place] [address] Eyad Campuzano, DMD [address] [place] [address] Health Maintenance Due Date Last Done Comments [...] 1-dose series) 2018 COVID-19 Vaccine (3 - 2024-2 6 season) 2024 07/21/2020, 06/30/2020 Influenza Vaccine (#1) 2024 Dental [...] dental calculus Supragingival dental calculus Tongue coating INTRAORAL - COMPLETE SERIES OF RADIOGRAPHIC IMAGES Routine 09/30/2024 9:15 AM EDT COMPREHENSIVE ORAL EVALUATION - NEW OR ESTABLISHED PATIENT Routine 09/30/2024 9:15 AM EDT from Last 3 Months or Most Recently Relevant to Health Maintenance
--- OUTSIDE RECORDS SUMMARY | 2025-01-18 16:06 | XMS_ITS | Patient Health Record ---
Author Organization [facility] Address [address] [address] Care Team Providers Care Mailing Section Clerk Name Role Phone Cosmo BARRIOS, Maciej Primary Care Provider Agustina Araujo Unavailable [phone] Allergies No Known Allergies Reason For Referral No Information Medications Medication SIG (Take, Route, Frequency, Duration) Notes Start Date End Date Status Atorvastatin Calcium 40 MG 1 tablet G-Tu be at bedtime 03/15/2024 Active Tylenol 325 MG 2 tablets G-Tube at bedtime 07/15/2024 Active Bisacodyl 10 MG 1 suppository Rectal Once a day As needed 11/21/2023 Active Aspercreme Lidocaine 4 % as directed Ext ernally once a day 01/28/2024 Active Psyllium Husk - as directed 06/19/2024 A ctive Atenolol 25 MG 2 tablets G-Tube Onc e a day 03/15/2024 Active Saccharomyces boulardii 250 MG 1 capsule G-Tube twice a day 11/21/2023 Active Acetaminophen 325 MG 2 tablets Orally every 6 hrs As needed for fever 06/16/2024 Active Acetaminophen 325 MG 2 tablets Orally every 6 hrs As needed for pain 06/16/2024 Active Magnesium Hydroxide 400 MG/5ML 30 mL G-Tube once a day As needed 11/21/2023 Active Clotrimazole-Betamethasone 1-0.05 % 1 application Externally Twice a day 05/28/2024 Active Fleet Enema - as directed Rectal once a day As needed 11/21/2023 Active PARoxetine HCl 10 MG 1 tablet G-Tube Onc e a day 11/22/2023 Active Ascorbic Acid 500 MG 1 tablet G-Tube Onc e a day 07/16/2024 Active Melatonin 3 MG 1 tablet G-Tube at bedtime 11/21/2023 Active Apixaban 5 MG 1 tablet Orally tw11/26/2023 Active Omeprazole 2 MG/ML 20 mL G-Tube in the morning 07/17/2024 Active Problems Problem Type SNOMED Code ICD Code Onset Dates Problem Status W/U Status Risk Notes Problem Tinea corporis (06719250) Tinea corporis (B35.4) Active confirmed Problem Anemia (279027699) Anemia, unspe cified (D64.9) Active confirmed Problem Protein calorie malnutrition (129461471) Unspecified protein-calorie malnutrition (E46) Active confirmed Problem Hyperlipidemia (65303307) Hyperlipidemia, unspecified (E78.5) Active confirmed Problem Psychophysiologic insomnia (286108491) Psychophysiologic insomnia (F51.04) Active confirmed Problem Expressive language disorder (823779528) Expressive language disorder (F80.1) Active confirmed Problem Essential hypertension (20788514) Essential (primary) hypertension (I10) Active confirmed Problem Hemiplegia of nondominant side as late effect of cerebrovascular disease (527479812) 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) Active confirmed Problem Chronic respiratory failure (50605682) Chronic respiratory failure with hypoxia (J96.11) Active confirmed Problem Smkfn-ft-nsuxpmu hypoxemic respiratory failure (11499064740820966) Acute and chronic respiratory failure with hypoxia (J96.21) Active confirmed Problem Diaper dermatitis (54865974) Diaper dermatitis (L22) Active confirmed Problem Dysphagia (75747178) Dysphagia, unspecified (R13.10) Active confirmed Problem Cognitive communication disorder (314453844) Cognitive communication deficit (R41.841) Active confirmed Problem History of pulmonary embolus (559939364) Personal history of pulmonary embolism (Z86.711) Active confirmed Problem Gastrostomy present (146775917) 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) Active confirmed Problem 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) Active confirmed Vital Signs Weight-kg 66.23 kg 07/31/2024 weight reflecte d from 07/30/24 on [facility] Weight 146 lbs 07/31/2024 weight reflecte d from 07/30/24 on [facility] Encounters Encounter Location Date Provider Diagnosis [place] [place] [address] 03/25/2024 Agustina Mayo Diaper dermatitis L22 and Tinea corporis B35.4 [address] [place] [address] 2024 Agustina Waverly Diaper dermatitis L22 and Tinea corporis B35.4 [address] [place] [address] 04/29/2024 Agustina [place]ly Diaper dermatitis L22 and Tinea corporis B35.4 [address] [place] [address] 06/03/2024 Agustina Gael Diaper dermatitis L22 and Tinea corporis B35.4 [address] [place] [address] 07/31/2024 Agustina [place] Diaper dermatitis L22 and Tinea corporis B35.4 [address] [place] [address] 08/07/2024 Agustina [place] Diaper dermatitis L22 and Tinea corporis B35.4 Assessments Encounter Date Diagnosis (ICD Code) Assessment Notes Treatment Notes Treatment Clinical Notes Section Notes 03/25/2024 Tinea corporis (ICD-10 - B35.4) On exam, alert & cooperative with care. We rolled and examined his buttocks where he has a fungal rash with moist circular erythema which appears to be a fungal rash. There were no findings to indicate any acute underlying infectious process. Miconazole cream was applied. I recommended nursing apply clotrimazole betamethasone cream BID X 14 days to his coccyx extending to bilateral buttocks. Turn, reposition & change Q2 hours & [...] or concerns that I may have had. 03/25/2024 Diaper dermatitis (ICD-10 - L22) 2024 Diaper dermatitis (ICD-10 - L22) 04/29/2024 Diaper dermatitis (ICD-10 - L22) 06/03/2024 Diaper dermatitis (ICD-10 - L22) 07/31/2024 Diaper dermatitis (ICD-10 - L22) 08/07/2024 Diaper dermatitis (ICD-10 - L22) 08/07/2024 Tinea corporis (ICD-10 - B35.4) On exam, [...] or concerns that I may have had. 07/31/2024 Tinea corporis (ICD-10 - B35.4) On exam, alert & cooperative with care. We rolled and examined his buttocks which is intact but his bilateral posterior thighs, buttocks, and scrotum have moist erythema and appear fungal in nature. There were no findings to indicate any acute underlying infectious process. Betamethasone clotrimazole was applied as this has worked well in the past I recommended nursing continue to apply betamethasone [...] plan of care. I Agustina Mayo MSN, AGNP-BC examined, evaluated and treated the patient. Dr. Chintan Day was available for any question or concerns that I may have had. 06/03/2024 Tinea corporis (ICD-10 - B35.4) On exam, alert & cooperative with care. We rolled and examined his buttocks which is intact but his bilateral groin and scrotum have moist erythema and appear fungal in nature. There were no findings to indicate any acute underlying infectious process. Betamethasone clotrimazole was applied I recommended nursing continue to apply betamethasone [...] plan of care. I Agustina Mayo MSN, [facility] examined, evaluated and treated the patient. Dr. Chintan Day was available for any question or concerns that I may have had. 04/29/2024 Tinea corporis (ICD-10 - B35.4) On exam, alert & cooperative with care. We rolled and examined his buttocks and his fungal rash is resolved with fragile pink erythema. There were no findings to indicate any acute underlying infectious process. A&D ointment was applied. I recommended nursing apply a&D ointment BID to his coccyx extending to bilateral buttocks. Turn, reposition & change Q2 hours & PRN. Encourage appropriate dietary supplementation to aid in wound healing. Falls protocol in place. I will follow up in about one week to ensure the tissue remains intact and nursing will reach out in the interim w any questions or concerns. Patient and nursing agree w plan of care. I Agustina Mayo MSN, AGNP-BC examined, evaluated and treated the patient. Dr. Chintan Day was available for any question or concerns that I may have had. 2024 Tinea corporis (ICD-10 - B35.4) On exam, alert & cooperative with care. We rolled and examined his buttocks where he has a fungal rash with moist circular erythema which appears to be a fungal rash, improved from previous measurements. There were no findings to indicate any acute underlying infectious process. Miconazole cream was applied. I recommended nursing apply clotrimazole betamethasone cream BID to his coccyx extending to bilateral buttocks. Turn, reposition & change Q2 hours & PRN. Encourage appropriate dietary supplementation to aid in wound healing. Falls protocol in place. I will follow up in about three weeks to monitor his progress and nursing will reach out in the interim w any questions or concerns. Patient and nursing agree w plan of care. I Agustina Mayo MSN, [facility], evaluated and treated the patient. Dr. Chintan Day was available for any question or concerns that I may have had. Plan Of Treatment No Information Insurance Providers Payer Name Payer Address Payer Phone Subscriber Number Group Number Insured Name Patient Relationship to Insured Coverage Start Date Coverage End Date Medicare [address] [place], [place] [id number] Gilmar Mcpherson Self - patient is the insured 3 [facility] [address] [place], [place] [id number] Gilmar Mcpherson Self - patient is the insured 3 Medical (General) History Medical History History ICD Code Anemia, unspecified D64.9 Bacteremia R78.81 Bacterial infection, unspecified A49.9 Chronic respiratory failure with hypoxia J96.11 Cognitive communication deficit R41.841 Dysphagia, unspecified R13.10 Effusion, left knee M25.462 Elevation of levels of liver transaminas e levels R74.01 Essential (primary) hypertension I10 Expressive language disorder F80.1 Flexion deformity, left shoulder M21.212 Gastrointestinal hemorrhage, unspecified K92.2 Gastrostomy status Z93.1 Hemiplegia and hemiparesis f ollowing cerebral infarction affecting left non-dominant side I69.354 Hyperlipidemia, unspecified E78.5 Muscle weakness (generalized) M62.81 Need for assistance with personal care Z 74.1 Other specified depressive episodes F32. 89 Personal history of pulmonary embolism Z 86.711 Pneumonia, unspecified organism J18.9 Psychophysiologic insomnia F51.04 Sepsis, unspecified organism A41.9 Unspecified protein-calorie malnutrition E46 Urinary tract infection, site not specif ied N39.0
--- NOTE | 2025-01-20 13:58 | MHC.SL.IMP ---
Date of Plan of Treatment: 01/18/25 Onset of Symptoms/Illness: 03/20/24 Date Treatment Started: 01/18/25 Admitting Diagnosis: Hx CVA Primary Speech & Language Diagnosis: R13.12 Oropharyngeal Phase Dysphagia Reason for Today's Visit: 17258 Modified Barium Swallow Study Pre-evaluation Dietary Consistencies: NPO Pre-evaluation Liquid Consistency: NPO Pre-evaluation Medication Administration: NPO Medical History: Modified Barium Swallow Study Fluoroscopic Evaluation of Swallowing Function CPT Code 03750 Evaluation Year: 2024 Reason for Study: hx dysphagia, aspiration Referring Physician: Jacqueline Santamaria FASHION STYLIST Evaluating Clinician: Gaby Jarquin MA, [facility]-[employer] Study Number: 1 Patient Name: Gilmar Rodgers Status: Outpatient, Wheelchair Age: 64 Sex: Male Medical History Medical History PEG tube malfunction Pulmonary aspiration Constipation Chronic GERD Hypertension Hx pulmonary embolism Hypoxia C. difficile diarrhea Surgical History PEG (percutaneous endoscopic gastrostomy) status Current (pre-evaluation) Intake/Diet: Route: NPO/Alternate Route, gastrostomy tube Pre-Study Functional Oral Intake Scale (FOIS): 1- No oral intake Pain: None reported at time of study SUBJECTIVE: Patient is a 64 year old male brought in from the [facility] for a modified barium swallow study (MBSS). Paperwork provided by the speech pathologist at the living facility indicates patient has been consuming small amounts of ice chips when participating in dysphagia treatment and tolerates it well with no overt clinical signs of aspiration. Patient has reportedly had MBSS done in the past, but this information was not available to the living facility nor this [employer]. Patient?s reports patient was previously consuming supplemental PO on a pureed diet with nectar thick liquids at the end of 2023 but ceased PO intake after he was hospitalized for aspiration pneumonia. Pertinent medical history includes CVA 10/2023 and chronic GERD. Patient is mostly bedbound and uses a wheelchair for ambulation. Patient followed verbal commands during this encounter. He communicated with [employer] by answering close ended yes/no questions by shaking/nodding his head. Per review of the EMR, patient was recently hospitalized in October 2024 for sepsis secondary to cdiff further complicated by recurrent hypoxemia w/ chest CT showing ?stigmata of chronic aspiration in laying down position.? Oral Motor Exam Mouth Occlusion: Normal Oral-Facial Teeth Characteristics: Partially Missing Tongue Size: Normal Tongue Excursion Description: Normal Tongue Range of Movement Description: Reduced Tongue Speed of Movement Description: Reduced Tongue Strength of Movement (against opposing pressure): Reduced Tongue Movement Characteristics: Normal/Absent Food and Liquid Trials: Oral Impairment: Lip Closure: 1=Interlabial escape; no progression to anterior tip Oral Impairment: Tongue Control During Bolus Hold: 3=Posterior escape of greater than half of bolus Oral Impairment: Bolus Preparation/Mastication: Did not test Oral Impairment: Bolus Transport/Lingual Motion: 3=Repetitive/disorganized tongue motion Oral Impairment: Oral Residue: 2=Residue collection on oral structures Oral Impairment:Initiation of Pharyngeal Swallow: 3=Bolus head in pyriforms Pharyngeal Impairment: Soft Palate Elevation: 0=No bolus between soft palate (SP)/pharyngeal wall (PW) Pharyngeal Impairment: Laryngeal Elevation: 1=Partial thyroid cartilage/arytenoids to epiglottic petiole movement Pharyngeal Impairment: Anterior Hyoid Excursion: 1=Partial anterior movement Pharyngeal Impairment: Epiglottic Movement: 2=No inversion Pharyngeal Impairment: Laryngeal Vestibular Closure:: 1=Incomplete: narrow column air/contrast in laryngeal vestibule Pharyngeal Impairment: Pharyngeal Stripping Wave: 1=Present: diminished Pharyngeal Impairment: Pharyngeal Contraction: Did not test Pharyngeal Impairment: Pharyngoesophageal Segment Openin=Partial distention/partial duration: partial obstruction of flow Pharyngeal Impairment: Tongue Base (TB) Retraction: 2=Narrow column of contrast/air between TB and posterior PW Pharyngeal Impairment: Pharyngeal Residue: 2=Collection of residue within or on pharyngeal structures Pharyngeal Impairment: Esophageal Clearance Upright Position: Did not test Impressions and Recommendations OBJECTIVE: Time-out: performed at 14:55 Evaluation Start: 14:30; Stop: 14:45 Patient Positioning: Seated 70-90 degrees Viewing Planes: LATERAL ONLY Contrast: MBSImP? Standardized Protocol using commercially prepared, standardized Barium viscosities, including: Varibar? THIN LIQUID (40% w/v, <15 cps) , Varibar? NECTAR (40% w/v, <150-450 cps) , Varibar? THIN HONEY (40% w/v, <800-1800 cps) , Varibar? PUDDING (40% w/v, <6762-9948 cps) [facility]: [id number] MBSImP Results: Lip closure for intraoral bolus containment resulted in interlabial escape, without progression to the anterior lip. Tongue control during bolus hold allowed posterior escape of greater than half of the bolus. Bolus preparation and mastication received the highest impairment score; solid not given due to patient safety concerns related to oral impairment. Bolus transport/lingual motion was with repetitive/disorganized motion of the tongue. Oral residue was a collection on oral structures. Initiation of the pharyngeal swallow occurred when the bolus head was in the pyriform sinuses. Soft palate elevation resulted in no bolus between the soft palate and the pharyngeal wall. Laryngeal elevation was decreased, with partial superior movement of the thyroid cartilage/partial approximation of the arytenoids to the epiglottic petiole. Anterior hyoid excursion demonstrated partial anterior movement. Epiglottic movement resulted in no inversion. Laryngeal vestibular closure was incomplete, with a narrow column of air/contrast noted within the laryngeal vestibule at the height of the swallow. Pharyngeal stripping wave was present, but diminished. Pharyngeal contraction could not be determined due to logistical reasons not related to physiologic impairment. Pharyngoesophageal segment opening demonstrated partial distension/partial duration, with partial obstruction of bolus flow. Tongue base retraction allowed a narrow column of contrast or air between the retracted tongue base and the posterior pharyngeal wall. Pharyngeal residue was a collection of residue within or on pharyngeal structures. Esophageal clearance in the upright position could not be assessed due to logistical reasons not related to physiologic impairment. Oral Impairment Score: 14 Pharyngeal Impairment Score: 11 (absence of score, component 13) Esophageal Impairment Score: --- (absence of score, component 17) Laryngeal Penetration and Aspiration: Neither penetration nor aspiration was observed in today's study with Pudding-thick. Both Penetration and Aspiration were observed in today's study. Honey-thick, [employer]-thick Contrast entered the airway, remained above the vocal folds, and were ejected from the airway. Thin Contrast entered the airway, passed below the vocal folds, and was not ejected from the trachea despite effort. ASSESSMENT: This exam was performed by the radiologist and the speech pathologist. Patient was seated upright at optimal 90 degree position for lateral view only. He was fed with 1:1 assistance provided by the speech pathologist and trialed the following consistencies: -thin liquid (via teaspoon) -nectar thick liquid (via teaspoon) -honey thick liquid (via teaspoon) -puree (mixture applesauce w/ barium pudding) There was trace contrast at times escaping into interlabial space, with no anterior bolus loss from the oral cavity. Note poor tongue control, with very slowed lingual movements, repetitive tongue rocking motion, and significant premature posterior escape, with contrast pooling to the valleculae and pyriforms prior to initiation of the pharyngeal swallow trigger. Pharyngeal swallow trigger was significantly delayed, in initiated as the bolus reached the level of the pyriforms. Post-swallow, there was mild residue coating the palate, tongue, and floor of mouth, consistently across all trials and consistencies. No evidence of nasopharyngeal reflux. Partial laryngeal elevation with absent epiglottic inversion and partial laryngeal vestibular closure. There was trace, transient penetration above the vocal folds on trials of nectar thick and honey thick liquids given by spoon. Subglottic aspiration seen on trial of thin liquid, with trace contrast entering the airway and passing below the vocal folds. Patient produced a spontaneous cough, which was delayed and did not eject contrast from the airway. No evidence of aspiration or penetration with trials of puree consistency. Patient was cued for the bolus hold strategy in order to improve oral containment and reduce swallow delays. Patient was better able to hold and manage thicker consistencies, such as honey thick and puree, reducing amount of contrast that escaped from the oral cavity. Patient exhibited a more difficult time holding thin and nectar thick consistencies and demonstrated consistently escape of majority of bolus into the pharynx prematurely. Minimal to moderate pharyngeal retention seen on the posterior pharyngeal wall and in the valleculae and pyriforms across all consistencies, pooling of liquid was reduced with cued dry swallowing and residue of semi-solid was reduced with liquid wash (sip of honey thick consistency). The following compensatory strategies have not been used until today's study, but when employed, improved swallowing function: Honey-thick Liquid eliminated Aspiration Bolus Volume Change decreased Penetration, Oral Residue, Pharyngeal Residue Rate of Ingestion Change decreased Penetration, Oral Residue, Pharyngeal Residue Bolus Hold decreased Penetration Liquid Wash decreased Oral Residue, Pharyngeal Residue Additional Swallow(s) per Bolus decreased Oral Residue, Pharyngeal Residue The following compensatory strategies have been used in therapy as well as in today's study and improved swallowing function: [employer]-thick Liquid eliminated Aspiration Liquid Intake Recommendation: Honey Thick Liquid Intake Strategies: Small Sips, No Straws, Double Swallow, Liquids by Teaspoon Only Dietary Recommendations: Pureed (NDD1) Medication Administration: NPO (via PEG) Please contact the pharmacy regarding appropriate crushable or liquid drug formulations that are available whenever modified delivery is recommended. Compensatory Strategies Recommended: Sitting Upright (90 deg), Double Swallow, No Straw, Small Bites and Sips, Alternate Liquids/Solids, Rate of Ingestion Change Supervision during eating and or drinking: Total Assistance (1:1) Recommended Treatments: Compens. Strategy Educat. Recommendation for Speech Therapy: Speech Therapy through Rehab Facility Intake Recommendations: Route: Partial PO/Partial Alternate Diet Grade: Puree Liquid Consistencies: Honey Post-Study Functional Oral Intake Scale (FOIS): 2- dependent with minimal/inconsistent oral intake Patient presents with moderate oropharyngeal dysphagia, characterized by slowed and discoordinated oral phase and compromised airway protection. There was subglottic aspiration seen on trial of thin liquid given by spoon, with delayed and ineffective cough response. Transient penetration seen on nectar thick and honey thick consistencies. Appreciated minimal oral residue and minimal to moderate collection in the pharynx as well. Patient was able to partially clear residue with cued dry swallowing and liquid wash. Patient also followed commands for bolus hold, which improved tongue control and reduced posterior spilling of thicker consistencies (honey thick and puree). Recommend introduce partial PO therapeutically to supplement main source of nutrition provided via PEG tube. Medications to be administered via PEG. Recommend small, snack size portions (i.e. up to 4 oz) PUREE (NDD1) texture and HONEY THICK liquids, feeding to be provided by [employer] unit supervisor: -administer small bites (1/2-3/4 teaspoon at a time) -cue patient to hold bolus in his mouth before swallowing -cue patient to swallow again (dry swallows) after each bite and each sip -alternate bites with sips of liquid by spoon -liquids by teaspoon only -NO STRAWS -ensure upright positioning (90 degrees) during and for at least 30 minutes after feeding -ensure patient is adequately awake and alert for feeding -discontinue if patient evidences any overt signs or symptoms of aspiration -provide daily oral care Therapy Recommendations: Therapy will be continued at correction living facility targeting PO trials, training of compensatory strategies, and providing education to the patient, his family/caregiver, and nursing staff. The following compensatory strategies and/or therapeutic exercises will be part of the upcoming therapy/management plan: Honey-thick Liquid Bolus Volume Change Rate of Ingestion Change Bolus Hold Liquid Wash Additional Swallow(s) per [facility] Goals: ? The patient will tolerate the least restrictive diet with a safe/efficient swallow to maintain adequate nutrition and hydration. ? The patient and/or family will participate in further education for swallowing goals. Short Term Goals: ? Diet - The patient will tolerate a pureed diet with honey thick liquids without signs or symptoms of penetration/aspiration 100% of the time. - The patient will participate in therapeutic PO trials with the [employer]. ? Guidelines - The patient will comply with/recall the following guidelines/strategies 100% of the time with minimal cuing: Honey-thick Liquid, Bolus Volume Change, Rate of Ingestion Change, Bolus Hold, Liquid Wash, Additional Swallow(s) per Bolus, No Straws. ? Education - The patient, family, caregiver, nurse will verbalize/demonstrate understanding of the results of this evaluation, the above recommendations, and the swallowing guidelines. Frequency/Duration: TBD per [facility] [employer] Date Range for Service Requested: Timeline to reassess: PRN Clinician - Supplemental, Miscellaneous Communication: It is important to note MBSS objective studies are snapshots in time and Patient function might vary with factors such as time of day or concomitant medical conditions. For this reason, the final treatment plan for this patient should rest with their medical care team. Additional recommendations should be considered with the totality of the Patient in mind. Thank for the opportunity to participate in the care of this patient. If you have any questions about the content of this report, please contact the [facility] at [facility]. Education: Education regarding findings from today's study and plans for therapy were provided to Patient and family/caregiver through Verbal Instruction, Written Instruction. Understanding was expressed by the Patient and family/caregiver. Plate Straightener Clinician/Clinical Fellow: No Supervisory Statement: N/A Speech Language Pathologist: Gaby Jarquin M.A., [facility]-[employer]
== END 2025-01-18 14:18 | disposition home or self-care (01) ==
LOC: HO.XRAY 14:17
PROVIDERS: Visit Provider Nurse Practitioner
DX: R13.10 Dysphagia, unspecified (principal); Z86.73 Personal history of transient ischemic attack (TIA), and cerebral infarction without residual deficits
CPT/HCPCS: 74230; 92611

== ENCOUNTER → 2025-01-18 14:20 | Outpatient (BNV) | payer MEDICARE, SELFPAY | PROVIDERS: Visit Provider Radiology Diagnostic Radiology | DX: R13.10 Dysphagia, unspecified (principal) | CPT/HCPCS: 74230 ==

== ENCOUNTER 2025-03-08 06:40 | Outpatient (REF) | payer MEDICARE, SELFPAY ==
[2025-03-08 06:43] LABS: MANUAL DIFF FLAG NO
--- OUTSIDE RECORDS SUMMARY | 2025-03-08 06:44 | XMS_ITS | Clinical Summary ---
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 Yarn Texture Machine Operator Name Role Phone Unavailable Primary [...] Encounters Date Type Department Care Team Description 01/20/2025 2:30 PM EDT Office Visit [facility] [address] [place] [id number] Eyad Campuzano DMD from Last 3 Months [...] Care Team (Late st Contact Info) Description 03/10/2025 2:30 PM EST Office Visit [facility] [address] [place] [id number] [address] [place] [address] Health Maintenance Due Date Last Done Comments [...] 2008 Zoster Vaccines (1 of 2) 2008 COVID-19 Vaccine (3 - 2024-2 6 season) 2024 07/21/2020, 06/30/2020 Influenza Vaccine (#1) 2024 Dental Prophylaxis 04/16/2025 10/14/2024 Dental Oral Exam 07/22/2025 01/20/2025, 09/30/2024 Dental X-Ray: Bitewings 10/01/2025 09/30/2024 Tobacco Screening 01/20/2026 01/20/2025 Dental X-Ray: Full Mouth 10/02/2027 09/30/2024 RSV Patients and Patients Aged 60 years or older (1 - 1-dose 75+ series) 2033 HIB Vaccines Aged Out No longer eligi [...] Procedure Name Priority Date/Time Associated Diagnosis Comments PERIODIC ORAL EVALUATION - ESTABLISHED PATIENT Routine 01/20/2025 2:30 PM EDT PROPHYLAXIS - ADULT Routine 10/14/2024 3 :15 PM EDT Dental calculus Dental plaque Subgingival dental calculus Supragingival dental calculus Tongue coating INTRAORAL - COMPLETE SERIES OF RADIOGRAPHIC IMAGES Routine 09/30/2024 9:15 AM EDT from Last 3 Months or Most Recently Relevant to Health Maintenance
[2025-03-08 07:23] LABS: Hematocrit 44.7 % (42.0-52.0); Hemoglobin 14.3 g/dl (14.0-18.0); Imm Gran Abs Auto 0.02 X10*3/uL (0.00-0.03); Imm Gran Pct Auto 0.3 % (0.0-0.4); Lymphocytes Absolute Auto 1.7 X10*3/uL (1.2-4.9); Mean Corpuscular HGB Conc 32.0 g/dl (31.0-36.0); Mean Corpuscular Hemoglobin 28.9 pg (27.0-33.0); Mean Corpuscular Volume 90.5 fL (80.0-98.0); NRBC Abs Auto 0.000 X10*3/uL (0.0-0.012); NRBC Pct Auto 0.0 /100WBC (0.0-0.2); Red Blood Count 4.94 X10*6/uL (4.60-5.80); White Blood Count 7.9 X10*3/uL (4.8-10.8)
[2025-03-08 07:33] LABS: Anion Gap 12 (12-20); Carbon Dioxide 27 mmol/L (22-29); Chloride 104 mmol/L (96-108); Estimated Glomerular Filt Rate > 60; Potassium 4.3 mmol/L (3.3-5.1); Sodium 139 mmol/L (135-145)
[2025-03-08 07:57] LABS: Platelet Count 196 X10*3/uL (160-400)
[2025-03-09 00:13] LABS: CDiff Gene PCR NEGATIVE (Negative)
== END 2025-03-08 06:41 | disposition home or self-care (01) ==
LOC: HO.HSH3W 06:40
PROVIDERS: Internal Medicine; Visit Provider Nurse Practitioner
DX: Z13.89 Encounter for screening for other disorder (principal)
CPT/HCPCS: 36415; 80051; 82565; 85025; 87493